=== PATIENT | female | born 1960 ===

== ENCOUNTER 2017-07-25 09:08 | Inpatient (IN) | payer OTHER ==
[2017-07-25 09:08] VITALS: BMI 41.7
[2017-07-25] MEDS ORDERED: Sodium Chloride 0.9% 1,000 ML IV ONE ×2 (09:25→10:37)
[2017-07-25] MEDS ORDERED: Sodium Chloride 0.9% 1,000 ML ONE ×2 (09:32→10:41)
[2017-07-25 09:46] LABS: BASO # 0.1 K/uL (0.0-0.2); BASO % 0.6 % (0.0-2.0); EOS % 0.1 % (0.0-4.0); HEMATOCRIT 47.3 % (34.0-47.0); LYMPH # 2.7 K/uL (1.0-4.3); LYMPH % 13.7 % (20.0-40.0); MEAN CORPUSCULAR HEMOGLOBIN 29.7 pg (27.0-31.0); MEAN CORPUSCULAR HGB CONC 34.1 g/dL (33.0-37.0); MEAN PLATELET VOLUME 9.4 fL (7.2-11.7); MONO # 1.3 K/uL (0.0-0.8); MONO % 6.5 % (0.0-10.0)
[2017-07-25 09:50] LABS: MEAN CELL VOLUME 87.2 fL (81.0-99.0); WHITE BLOOD COUNT 19.7 K/uL (4.8-10.8)
[2017-07-25 09:54] LABS: CHLORIDE 92 mmol/L (98-107)
[2017-07-25 09:55] LABS: SODIUM 134 mmol/L (132-148)
[2017-07-25 09:57] LABS: ALB/GLOB RATIO 1.2 (1.0-2.1); ALKALINE PHOSPHATASE 120 U/L (38-126); ALT/SGPT 81 U/L (9-52); AST/SGOT 69 U/L (14-36); BLOOD UREA NITROGEN 38 mg/dL (7-17); CALCIUM 9.4 mg/dl (8.6-10.4); CARBON DIOXIDE 23 mmol/L (22-30); GFR AFRICAN-AMERICAN > 60; GLUCOSE,RANDOM 340 mg/dL (65-105); TOTAL PROTEIN 7.6 g/dL (6.3-8.3)
--- NOTE | 2017-07-25 10:16 | C.PDOC ---
History Of Present Illness 56 yo female with PMD of GERD, DM, and HTN c/o abdominal pain associated with n/ v x 5 days. (+) subjective fever. Unable to take her medication secondary to not tolerating it. No diarrhea. No chest pain. (-) hematemisis (+) h/o similar symptoms two years ago which improved with admission and liquid diet. (-) chest pain. (-) SOB. Last BM 5 days ago. Time Seen by Provider: 07/25/17 09:16 Chief Complaint (Nursing): Abdominal Pain History Per: Patient History/Exam Limitations: no limitations Onset/Duration Of Symptoms: Days (5) Past Medical History Reviewed: Historical Data, Nursing Documentation, Vital Signs Vital Signs: Last Vital Signs Temp 98.1 F 07/25/17 18:00 Pulse 104 H 07/25/17 18:00 Resp 20 07/25/17 18:00 BP 142/82 07/25/17 18:00 Pulse Ox 100 07/25/17 18:28 - Medical History PMH: Diabetes, GERD, HTN Family History: States: Other Other Family History: prostate, breast, and pancreatic cancer - Social History Hx Tobacco Use: No Hx Alcohol Use: Yes Hx Substance Use: Yes - Immunization History Hx Tetanus Toxoid Vaccination: No Hx Influenza Vaccination: No Hx Pneumococcal Vaccination: No Review Of Systems Except As Marked, All Systems Reviewed And Found Negative. Constitutional: Negative for: Fever Cardiovascular: Negative for: Chest Pain Gastrointestinal: Positive for: Nausea, Vomiting, Abdominal Pain. Negative for : Diarrhea Physical Exam - Physical Exam Appears: Non-toxic, In Acute Distress, Other ((+) anxious ) Skin: Warm, Dry Head: Atraumatic, Normacephalic Eye(s): bilateral: Normal Inspection, EOMI Nose: Normal Oral Mucosa: Moist Neck: Normal ROM, Supple Chest: Symmetrical Cardiovascular: Rhythm Regular Respiratory: Normal Breath Sounds, No Accessory Muscle Use Gastrointestinal/Abdominal: Soft, Tenderness (epigastric tenderness), Other ( obese) Back: No CVA Tenderness, No Vertebral Tenderness Extremity: Normal ROM Extremity: Bilateral: Atraumatic Neurological/Psych: Oriented x3, Normal Speech ED Course And Treatment - Laboratory Results Result Diagrams: 07/25/17 13:47 07/25/17 13:47 ECG: Interpreted By Me, Viewed By Me ECG Rhythm: Sinus Rhythm Rate From EC (bpm) O2 Sat by Pulse Oximetry: 100 (RA) Pulse Ox Interpretation: Normal - CT Scan/US Abdomen US Other Rad Studies (CT/US): Read By Radiologist, Radiology Report Reviewed CT/US Interpretation: HISTORY: Pain RUQ. COMPARISON: None. TECHNIQUE: Sonographic evaluation of the right upper quadrant of the abdomen. FINDINGS: LIVER: Measures 16.5 cm in length. Diffusely increased echogenicity of the liver parenchyma. Consistent with fatty infiltration. Smooth contour. No mass. No biliary ductal dilatation. GALLBLADDER: Unremarkable. No gallstones. COMMON BILE DUCT: Measures 7 mm. No stones. No dilatation. PANCREAS: No mass. Mild dilatation of pancreatic duct diffusely, uncertain significance. The duct measures up to 4 mm in diameter in the pancreatic body. This is not clearly evident on CT examination of the same date. Uncertain significance. Recommend evaluation with dedicated contrast enhanced CT utilizing pancreatic protocol. No peripancreatic fluid appreciated. RIGHT KIDNEY: Measures 11.5 cm in length. Normal echogenicity. No calculus, mass, or hydronephrosis. Please note that the small nonspecific hypodensities seen on CT examination of the same date is not appreciated on this examination. AORTA: No aneurysmal dilatation. IVC: Unremarkable. OTHER FINDINGS: None . IMPRESSION: Mild dilatation of the pancreatic duct of uncertain significance. Recommend evaluation with dedicated pancreatic protocol contrast CT examination. Fatty infiltration of the liver. Abd & pelvis CT Other Rad Studies (CT/US): Read By Radiologist, Radiology Report Reviewed CT/US Interpretation: ADDENDUM: Upon further review, please add note the presence of 9 mm hyperdense or possibly enhancing focus within the pancreatic tail (series 3, image 65). Pancreatic mass or possibly aneurysm arising from the splenic artery are considerations. Recommend dedicated pancreatic protocol for further evaluation. Findings discussed with MOLLY Hill on 07/25/17 at 3:21 p.m. [ Addendum Report Added by Susie Crowe MD at 07/25/2017 15:24: 24 ]. PROCEDURE: CT Abdomen and Pelvis with contrast. HISTORY: pain. COMPARISON: CT abdomen and pelvis with IV contrast performed 10/09/14. TECHNIQUE: Contrast dose: 100 mL Visipaque. Radiation dose: Total exam DLP = 1258.52 mGy-cm. This CT exam was performed using one or more of the following dose reduction techniques: Automated exposure control, adjustment of the mA and/ or kV according to patient size, and/or use of iterative reconstruction technique. FINDINGS: LOWER THORAX: Mild bibasilar atelectasis. No visible pleural effusion or pneumothorax. LIVER: Hypoattenuation of the liver compatible with hepatic steatosis. GALLBLADDER AND BILE DUCTS: Unremarkable. PANCREAS: Fatty atrophy of the pancreas. SPLEEN: Unremarkable. ADRENALS: Unremarkable. KIDNEYS AND URETERS: No obstructing calculus or hydronephrosis. Too small to characterize bilateral renal hypodensities ; statistically likely cysts. VASCULATURE: No aortic aneurysm. BOWEL: Stomach is nondistended. Lack of oral contrast limits evaluation for bowel pathology. Bowel loops appear within normal limits of caliber without evidence of obstruction. APPENDIX: The appendix appears within normal limits of caliber. No secondary signs of acute appendicitis. PERITONEUM: No significant free fluid. No definite free air. LYMPH NODES: No bulky adenopathy identified. BLADDER: Unremarkable. REPRODUCTIVE: Uterus is present. BONES: Vacuum disc phenomenon at L4-L5 with intervertebral disc space narrowing. OTHER FINDINGS: 11 mm fat containing umbilical hernia. IMPRESSION: Mild bibasilar atelectasis. Hepatic steatosis. Fatty atrophy of the pancreas. Too small to characterize bilateral renal hypodensities; statistically likely cysts. 11 mm fat containing umbilical hernia. Additional findings as above. Progress Note: On re-evaluation, pt notes nausea persists. Reglan ordered. On reassessment, patient notes pain persists. Now radiates to her right chest. Nausea improved. Case discussed with Dr Suero, agreed upon plan and treatment. Case discussed with Dr Russ, agreed upon plan and admission. Medical Decision Making Medical Decision Making: PLAN: * CT - Abd & Pelvis * EKG * Alcohol Serum * Drug Screen * Troponin * CBC * CMP * Urinalysis * Morphine IVP * Protonix IVP * Zofran IVP * Sodium Chloride IV Disposition - Disposition Disposition: HOSPITALIZED Disposition Time: 18:00 Condition: STABLE - Clinical Impression Clinical Impression: Abdominal pain, Leukocytosis - PA / BRAILLE TRANSCRIBER / Resident Statement MD/DO has reviewed & agrees with the documentation as recorded. - Scribe Statement The provider has reviewed the documentation as recorded by the Scribe Sneha Anderson All medical record entries made by the Shadiaibe were at my direction and personally dictated by me. I have reviewed the chart and agree that the record accurately reflects my personal performance of the history, physical exam, medical decision making, and the department course for this patient. I have also personally directed, reviewed, and agree with the discharge instructions and disposition.
[2017-07-25 10:24] LABS: ALCOHOL SERUM < 10 mg/dl (0-10)
[2017-07-25 10:49] LABS: RBC URINE 4 /hpf (0-3); URINE BACTERIA RARE (<OCC); URINE BILIRUBIN NEGATIVE (NEGATIVE); URINE BLOOD 1+ (NEGATIVE); URINE COLOR Yellow (YELLOW); URINE GLUCOSE (UA) 3+ mg/dL (Normal); URINE KETONE 2+ mg/dL (NEGATIVE); URINE LEUKOCYTE ESTERASE NEG Leu/uL (Negative); URINE PROTEIN 2+ mg/dL (NEGATIVE); URINE UROBILINOGEN NORMAL mg/dL (0.2-1.0); WBC URINE 6 /hpf (0-5)
[2017-07-25] MEDS ORDERED: Iodixanol 320 MG/ML 100 ML BOTTLE IV ONE (11:50)
--- NOTE | 2017-07-25 13:05 | CT ---
PROCEDURE: CT Abdomen and Pelvis with contrast HISTORY: pain COMPARISON: CT abdomen and pelvis with IV contrast performed 10/09/14 TECHNIQUE: Contrast dose: 100 mL Visipaque Radiation dose: Total exam DLP = 1258.52 mGy-cm. This CT exam was performed using one or more of the following dose reduction techniques: Automated exposure control, adjustment of the mA and/or kV according to patient size, and/or use of iterative reconstruction technique. FINDINGS: LOWER THORAX: Mild bibasilar atelectasis. No visible pleural effusion or pneumothorax. LIVER: Hypoattenuation of the liver compatible with hepatic steatosis. GALLBLADDER AND BILE DUCTS: Unremarkable. PANCREAS: Fatty atrophy of the pancreas. SPLEEN: Unremarkable. ADRENALS: Unremarkable. KIDNEYS AND URETERS: No obstructing calculus or hydronephrosis. Too small to characterize bilateral renal hypodensities ; statistically likely cysts. VASCULATURE: No aortic aneurysm. BOWEL: Stomach is nondistended. Lack of oral contrast limits evaluation for bowel pathology. Bowel loops appear within normal limits of caliber without evidence of obstruction. APPENDIX: The appendix appears within normal limits of caliber. No secondary signs of acute appendicitis. PERITONEUM: No significant free fluid. No definite free air. LYMPH NODES: No bulky adenopathy identified. BLADDER: Unremarkable. REPRODUCTIVE: Uterus is present. BONES: Vacuum disc phenomenon at L4-L5 with intervertebral disc space narrowing. OTHER FINDINGS: 11 mm fat containing umbilical hernia. IMPRESSION: Mild bibasilar atelectasis. Hepatic steatosis. Fatty atrophy of the pancreas. Too small to characterize bilateral renal hypodensities; statistically likely cysts. 11 mm fat containing umbilical hernia. Additional findings as above.
[2017-07-25] MEDS ORDERED: (Novolin R) Insulin Human Regular 100 units/ml vial IV ONE (13:35)
[2017-07-25 13:52] LABS: BASO # 0.1 K/uL (0.0-0.2); MEAN PLATELET VOLUME 9.5 fL (7.2-11.7); NRBC % 0.1 % (0.0-2.0)
[2017-07-25] MEDS ORDERED: (Novolin R) Insulin Human Regular 100 units/ml vial ONE (13:52)
[2017-07-25 14:01] LABS: BASO % 0.7 % (0.0-2.0); EOS % 0.1 % (0.0-4.0); HEMATOCRIT 41.2 % (34.0-47.0); LYMPH # 1.7 K/uL (1.0-4.3); LYMPH % 11.6 % (20.0-40.0); MEAN CELL VOLUME 86.4 fL (81.0-99.0); MEAN CORPUSCULAR HEMOGLOBIN 28.9 pg (27.0-31.0); MEAN CORPUSCULAR HGB CONC 33.5 g/dL (33.0-37.0); MONO # 0.8 K/uL (0.0-0.8); MONO % 5.3 % (0.0-10.0); RED CELL DISTRIBUTION WIDTH 12.9 % (11.5-14.5); WHITE BLOOD COUNT 14.6 K/uL (4.8-10.8)
[2017-07-25 14:03] LABS: ALKALINE PHOSPHATASE 89 U/L (38-126); ALT/SGPT 81 U/L (9-52); AST/SGOT 53 U/L (14-36); BILIRUBIN,TOTAL 0.6 mg/dL (0.2-1.3); BLOOD UREA NITROGEN 24 mg/dL (7-17); CALCIUM 8.2 mg/dl (8.6-10.4); CARBON DIOXIDE 25 mmol/L (22-30); CHLORIDE 98 mmol/L (98-107); GFR AFRICAN-AMERICAN > 60; GLUCOSE,RANDOM 260 mg/dL (65-105); POTASSIUM 3.5 mmol/L (3.6-5.2); SODIUM 137 mmol/L (132-148); TOTAL PROTEIN 6.1 g/dL (6.3-8.3)
--- NOTE | 2017-07-25 15:23 | US ---
HISTORY: Pain RUQ COMPARISON: None. TECHNIQUE: Sonographic evaluation of the right upper quadrant of the abdomen. FINDINGS: LIVER: Measures 16.5 cm in length. Diffusely increased echogenicity of the liver parenchyma. Consistent with fatty infiltration. Smooth contour. No mass. No biliary ductal dilatation. GALLBLADDER: Unremarkable. No gallstones. COMMON BILE DUCT: Measures 7 mm. No stones. No dilatation. PANCREAS: No mass. Mild dilatation of pancreatic duct diffusely, uncertain significance. The duct measures up to 4 mm in diameter in the pancreatic body. This is not clearly evident on CT examination of the same date. Uncertain significance. Recommend evaluation with dedicated contrast enhanced CT utilizing pancreatic protocol. No peripancreatic fluid appreciated. RIGHT KIDNEY: Measures 11.5 cm in length. Normal echogenicity. No calculus, mass, or hydronephrosis. Please note that the small nonspecific hypodensities seen on CT examination of the same date is not appreciated on this examination. AORTA: No aneurysmal dilatation. IVC: Unremarkable. OTHER FINDINGS: None . IMPRESSION: Mild dilatation of the pancreatic duct of uncertain significance. Recommend evaluation with dedicated pancreatic protocol contrast CT examination. Fatty infiltration of the liver.
--- NOTE | 2017-07-25 17:14 | CP.PCM.HP ---
<José Miguel Casarez - Last Filed: 07/25/17 19:08> History of Present Illness - History of Present Illness History of Present Illness: PGY-[address] Subhash Russ HPI CC:"i thought I had a stomach virus for the past 4 days" Patient is a 56 year old female with a PMH of alcoholism, drug addiction, DM, GERD, and HTN presenting with 4 days of vomiting. Patient state the issue started four days ago. She thought it was a virus at first but today she "had enough" and came to the ED. Patient said she has not moved from bed because the pain is so severe, and she can not tolerate a diet and has not eaten much since Friday. Patient denies any changes to lifestyle or diet when the issues began. She states that the vomit is white and foam, denies blood. The pain feels lie her belly is rumbling and rated it a 8/10. The pain is localized to her epigastric region with slight pain over her right lower ribs. She experienced a similar event 2 years ago and was brought to the hospital where she was placed on a liquid diet and got better after 3 days. Eating and drinking make it worse. She said she tried taking pepto bismol which helped slightly but she threw up the medication. Patient is also complaining of constipation, last BM was 5 days ago. ROS: * General: (+) fever/diaphoresis/weakness/changes in diet-cant eat. (-) chills/ recent travel/recent sickness/sick contacts * Cardio: (+) CP/Palp * Resp:(+) SOB. (-)cough * GI:(+) Abd pain/N/V/C * :(-)dysuria, freq * MSK:(+)LE sensitivity/swelling * Derm: (-)rash * Neuro:(+) dizzy. (-)LH PMD= [place] Allergies= NDKA PMH * DM * HTN * Pinch nerve in back * Left hip arthritis * GERD PSH * Breast biopsy-no path Family * Mom=DM * Dad=Pancreatic CA, Colon CA * Sister= Breast CA * Brother= Prostate CA Social Hx * Tobacco= Smokes one pack every two days for 30 years * Alcohol= Sober since November. Use to drink 12 24oz cans of beer daily for "years" * Drugs= Sober since November. History of heroine/crack use * Living= Lives with sister and [id number] * Job= unemployed DNR/DNI Contact: Hermelinda Navarro [phone], Sister Present on Admission - Present on Admission Any Indicators Present on Admission: No History of DVT/PE: No History of Uncontrolled Diabetes: No Urinary Catheter: No Decubitus Ulcer Present: No History Surgical Site Infection Following: None Review of Systems - Constitutional Constitutional: As Per HPI - EENT Eyes: As Per HPI Ears: As Per HPI Nose/Mouth/Throat: As Per HPI - Breasts Breasts: As Per HPI - Cardiovascular Cardiovascular: As Per HPI - Respiratory Respiratory: As Per HPI - Gastrointestinal Gastrointestinal: As Per HPI - Genitourinary Genitourinary: As Per HPI - Reproductive: Female Reproductive:Female: As Per HPI - Menstruation Menstruation: As Per HPI - Musculoskeletal Musculoskeletal: As Per HPI - Integumentary Integumentary: As Per HPI - Neurological Neurological: As Per HPI - Psychiatric Psychiatric: As Per HPI - Endocrine Endocrine: As Per HPI - Hematologic/Lymphatic Hematologic: As Per HPI Past Patient History - Infectious Disease Hx of Infectious Diseases: None - Past Medical History & Family History Past Medical History?: Yes - Past Social History Smoking Status: Heavy Smoker > 10 Cigarettes Daily - CARDIAC Hx Hypertension: Yes - PULMONARY Hx Tuberculosis: No - NEUROLOGICAL Hx Seizures: No - ENDOCRINE/METABOLIC Hx Diabetes Mellitus Type 2: Yes - HEMATOLOGICAL/ONCOLOGICAL Hx Human Immunodeficiency Virus (HIV): No - MUSCULOSKELETAL/RHEUMATOLOGICAL Hx Falls: No - GENITOURINARY/GYNECOLOGICAL Hx Sexually Transmitted Disorders: No - PSYCHIATRIC Hx Substance Use: Yes - SURGICAL HISTORY Hx Surgeries: Yes Other/Comment: oral sx - ANESTHESIA Hx Anesthesia: No Hx Anesthesia Reactions: No Meds Allergies/Adverse Reactions: Allergies Allergy/AdvReac Type Severity Reaction Status Date / Time No Known Allergies Allergy Verified 07/25/17 09:19 Physical Exam - Constitutional Appears: Well, Non-toxic, No Acute Distress - Head Exam Head Exam: ATRAUMATIC, NORMAL INSPECTION, NORMOCEPHALIC - Eye Exam Eye Exam: EOMI, Normal appearance, PERRL. absent: Nystagmus, Scleral icterus Pupil Exam: NORMAL ACCOMODATION, PERRL - ENT Exam ENT Exam: Mucous Membranes Moist - Neck Exam Neck exam: Positive for: Normal Inspection - Respiratory Exam Respiratory Exam: Clear to Auscultation Bilateral, NORMAL BREATHING PATTERN. absent: Rales, Rhonchi, Wheezes, Stridor - Cardiovascular Exam Cardiovascular Exam: REGULAR RHYTHM. absent: Bradycardia, Tachycardia, Gallop, Systolic Murmur - GI/Abdominal Exam GI & Abdominal Exam: Normal Bowel Sounds, Soft, Tenderness (epigastrum, RUQ). absent: Distended - Extremities Exam Extremities exam: Positive for: joint swelling, tenderness (to palpation b/l LE) . Negative for: pedal edema - Neurological Exam Neurological exam: Alert, Oriented x3 - Psychiatric Exam Psychiatric exam: Normal Affect, Normal Mood - Skin Skin Exam: Dry, Intact, Normal Color, Warm Results - Vital Signs Recent Vital Signs: Last Vital Signs Temp 98.4 F 07/25/17 11:42 Pulse 98 H 07/25/17 13:26 Resp 17 07/25/17 13:26 BP 138/70 07/25/17 13:26 Pulse Ox 96 07/25/17 13:26 - Labs Result Diagrams: 07/25/17 13:47 07/25/17 13:47 Assessment & Plan - Assessment and Plan (Free Text) Assessment: Intractable Nausea/Vomiting * Zofran 4mg IV Q6H PRN * CLD, Advance as tolerated Pancreatic Tail Mass VS Splenic Aneurysm * CT Abd/Pelvis W/W/O contrast (Pancreatic Protocol) - F/U * GI ([place]) - F/U Reccs Hypokalemia * Mag - F/U * Phos - F/U Elevated LFTs * Monitor Leukocytosis (L. Shift) * No fever * Monitor Constipation * Colace 100mg BID [id number] * Hold Metformin for CT, restart on 07/28/17 * ISS Medium * Accuchecks * A1C - F/U * Urine Microalbumin - F/U * Lipid Panel - F/U HTN * Lisinopril 10mg PO QD GERD * Pepcid 20mg BID PPX * Pepcid as above * Heparin 5000 SC Q12 * PT/OT * Ambulate - Date & Time Date: 07/25/17 Time: 19:40 Decision To Admit - Pt Status Changed To: Hospital Disposition Of: Inpatient - Admit Certification Admit to Inpatient:: After my assessment, the patient will require hospitalization for at least two midnights. This is because of the severity of symptoms shown, intensity of services needed, and/or the medical risk in this patient being treated as an outpatient. - InPatient: Physician Admission Certification:: . - . Bed Request Type: Regular Admitting Physician: Subhash Russ <Subhash Russ - Last Filed: 07/25/17 19:44> Results - Vital Signs Recent Vital Signs: Last Vital Signs Temp 98.1 F 07/25/17 18:00 Pulse 104 H 07/25/17 18:00 Resp 20 07/25/17 18:00 BP 142/82 07/25/17 18:00 Pulse Ox 100 07/25/17 18:57 - Labs Result Diagrams: 07/25/17 13:47 07/25/17 13:47 Attending/Attestation - Attestation I have personally seen and examined this patient.: Yes I have fully participated in the care of the patient.: Yes I have reviewed all pertinent clinical information: Yes Notes (Text): 07/25/17 19:43 Patient was seen and examined shortly after resident. History, Physical, Assessment and Plan were thoroughly gone over with the resident. Subhash Russ D.O.
--- NOTE | 2017-07-25 19:27 | CARD ---
APPROVED REPORT EKG Measurement Heart [id number] <Conclusion> Normal sinus rhythm Prolonged QT Abnormal ECG
[2017-07-25] MEDS: (Novolin R) Insulin Human Regular 100 units/ml vial SC SCH (21:45)
[2017-07-26] MEDS ORDERED: Pantoprazole 40 mg EC Tab PO STA (00:39)
[2017-07-26] MEDS: (Novolin R) Insulin Human Regular 100 units/ml vial SC SCH ×4 (08:22→22:55)
[2017-07-26 08:36] LABS: BASO % 0.5 % (0.0-2.0); EOS # 0.1 K/uL (0.0-0.7); EOS % 1.1 % (0.0-4.0); HEMATOCRIT 39.9 % (34.0-47.0); LYMPH # 2.9 K/uL (1.0-4.3); LYMPH % 34.1 % (20.0-40.0); MEAN CELL VOLUME 88.1 fL (81.0-99.0); MEAN CORPUSCULAR HEMOGLOBIN 29.9 pg (27.0-31.0); MEAN CORPUSCULAR HGB CONC 33.9 g/dL (33.0-37.0); MEAN PLATELET VOLUME 9.6 fL (7.2-11.7); MONO # 0.5 K/uL (0.0-0.8); MONO % 5.8 % (0.0-10.0); RED CELL DISTRIBUTION WIDTH 12.9 % (11.5-14.5); WHITE BLOOD COUNT 8.4 K/uL (4.8-10.8)
[2017-07-26 08:47] LABS: ALKALINE PHOSPHATASE 90 U/L (38-126); ALT/SGPT 81 U/L (9-52); AST/SGOT 46 U/L (14-36); BILIRUBIN,TOTAL 0.5 mg/dL (0.2-1.3); BLOOD UREA NITROGEN 23 mg/dL (7-17); CALCIUM 8.9 mg/dl (8.6-10.4); CARBON DIOXIDE 26 mmol/L (22-30); CHLORIDE 99 mmol/L (98-107); CHOLESTEROL 144 mg/dL (0-199); GFR AFRICAN-AMERICAN > 60; GLUCOSE,RANDOM 182 mg/dL (65-105); POTASSIUM 3.5 mmol/L (3.6-5.2); SODIUM 137 mmol/L (132-148); TOTAL PROTEIN 6.1 g/dL (6.3-8.3)
--- NOTE | 2017-07-26 09:04 | CP.PCM.CON ---
History of Present Illness - History of Present Illness History of Present Illness: ASked to see patient for pancreas lesion. 56 yo female h/o GERD. DM, HTN - present s to with 5 days nausea and vomiting. Reports poor p.o. intake, and no BMs x 5 days. Reports RON after orange juice and epig discmfort. Noted to have lesion in pancreas tail on CT. Reports feeling better today- no vomiting and no abdom pain. SH: + ETOH Review of Systems - Constitutional Constitutional: absent: Fatigue, Fever, Weight Loss - Cardiovascular Cardiovascular: absent: Chest Pain, Dyspnea - Respiratory Respiratory: absent: Hemoptysis, Wheezing - Gastrointestinal Gastrointestinal: Constipation, Nausea, Vomiting. absent: Diarrhea, Hematemesis , Hematochezia, Melena - Genitourinary Genitourinary: absent: Hematuria - Musculoskeletal Musculoskeletal: absent: Muscle Cramps - Integumentary Integumentary: absent: Pruritus, Rash, Jaundice - Neurological Neurological: absent: Convulsions Past Patient History - Infectious Disease Hx of Infectious Diseases: None - Past Medical History & Family History Past Medical History?: Yes - Past Social History Smoking Status: Heavy Smoker > 10 Cigarettes Daily - CARDIAC Hx Hypertension: Yes - PULMONARY Hx Tuberculosis: No - NEUROLOGICAL Hx Seizures: No - ENDOCRINE/METABOLIC Hx Diabetes Mellitus Type 2: Yes - HEMATOLOGICAL/ONCOLOGICAL Hx Human Immunodeficiency Virus (HIV): No - MUSCULOSKELETAL/RHEUMATOLOGICAL Hx Falls: No - GENITOURINARY/GYNECOLOGICAL Hx Sexually Transmitted Disorders: No - PSYCHIATRIC Hx Substance Use: No - SURGICAL HISTORY Hx Surgeries: Yes Other/Comment: oral sx - ANESTHESIA Hx Anesthesia: No Hx Anesthesia Reactions: No Meds Allergies/Adverse Reactions: Allergies Allergy/AdvReac Type Severity Reaction Status Date / Time No Known Allergies Allergy Verified 07/25/17 09:19 - Medications Medications: Current Medications Docusate Sodium (Colace) 100 mg PO BID JP Famotidine (Pepcid) 20 mg PO BID [facility] Heparin Sodium (Porcine) (Heparin) 5,000 units SC Q12 [facility] Last Admin: 07/25/17 21:45 Dose: 5,000 units Ibuprofen (Motrin Tab) 400 mg PO Q6 PRN PRN Reason: Fever >100.4 F Insulin Human Regular (Novolin R) 0 unit SC ACHS [facility] PRN Reason: Protocol Last Admin: 07/26/17 08:22 Dose: 1 unit Lisinopril (Zestril) 10 mg PO DAILY JP Ondansetron HCl (Zofran Inj) 6 mg IVP Q4 PRN PRN Reason: Nausea/Vomiting Pneumococcal Polyvalent Vaccine (Pneumovax 23 Vaccine) 0.5 ml IM .ONCE ONE Stop: 07/27/17 10:01 Physical Exam - Constitutional Appears: Well - Respiratory Exam Respiratory Exam: Clear to Auscultation Bilateral - Cardiovascular Exam Cardiovascular Exam: RRR - GI/Abdominal Exam GI & Abdominal Exam: Normal Bowel Sounds, Soft. absent: Distended, Firm, Guarding, Mass, Rebound, Tenderness - Neurological Exam Neurological exam: Alert, Oriented x3 Results - Vital Signs Recent Vital Signs: Last Vital Signs Temp 98 F 07/26/17 00:00 Pulse 97 H 07/26/17 00:00 Resp 20 07/26/17 00:00 BP 138/76 07/26/17 00:00 Pulse Ox 99 07/26/17 00:00 - Labs Result Diagrams: 07/26/17 08:18 07/26/17 08:18 Labs: Laboratory Results - last 24 hr 07/25/17 07/26/17 07/26/17 21:32 07:32 08:18 WBC 8.4 RBC 4.53 Hgb 13.5 Hct 39.9 MCV 88.1 MCH 29.9 MCHC 33.9 RDW 12.9 Plt Count 211 MPV 9.6 Neut % (Auto) 58.5 Lymph % (Auto) 34.1 Sanders % (Auto) 5.8 Eos % (Auto) 1.1 Baso % (Auto) 0.5 Neut # 4.9 Lymph # 2.9 Sanders # 0.5 Eos # 0.1 Baso # 0.0 Sodium Potassium Chloride Carbon Dioxide Anion Gap BUN Creatinine Est GFR ( Amer) Est GFR (Non-Af Amer) POC Glucose (mg/dL) 307 H 201 H Random Glucose Calcium Total Bilirubin AST ALT Alkaline Phosphatase Total Protein Albumin Globulin Albumin/Globulin Ratio Triglycerides Cholesterol HDL Cholesterol 07/26/17 08:18 WBC RBC Hgb Hct MCV MCH MCHC RDW Plt Count MPV Neut % (Auto) Lymph % (Auto) Sanders % (Auto) Eos % (Auto) Baso % (Auto) Neut # Lymph # Sanders # Eos # Baso # Sodium 137 Potassium 3.5 L Chloride 99 Carbon Dioxide 26 Anion Gap 16 BUN 23 H Creatinine 0.7 Est GFR ( Amer) > 60 Est GFR (Non-Af Amer) > 60 POC Glucose (mg/dL) Random Glucose 182 H Calcium 8.9 Total Bilirubin 0.5 AST 46 H ALT 81 H Alkaline Phosphatase 90 Total Protein 6.1 L Albumin 3.0 L Globulin 3.1 Albumin/Globulin Ratio 1.0 Triglycerides 148 Cholesterol 144 HDL Cholesterol 30 Assessment & Plan (1) Abdominal pain Assessment and Plan: Consider gastritis, DM, hyperglycemia, ketosis. Pain is better today. Consider related to pancreas finding. Rec: BLAND diet. PPI Status: Acute (2) Leukocytosis Assessment and Plan: Normalized Status: Acute (3) Diabetes Assessment and Plan: Ketones in urine Status: Acute (4) HTN (hypertension), benign Status: Acute (5) Vomiting Assessment and Plan: As above. Improving. Status: Acute (6) Hypertension Status: Chronic (7) Mass of pancreas Assessment and Plan: On CT- consider mass or splenic aneurysm. Panc dust- [address] Consider MRI. Status: Acute
--- NOTE | 2017-07-26 11:00 | CP.PCM.PN ---
Subjective - Date & Time of Evaluation Date of Evaluation: 07/26/17 Time of Evaluation: 10:57 - Subjective Subjective: PGY1 Note for Dr. Russ HPI: Patient seen and examined at bedside. Doing well with no complaints at this time. Waiting for CT results. Had some reflux with orange juice this am. Told patient to stick to water. She was able to tolerate broth. Shes hungry. No chest pain or SOB. Denies N/V/D/F. States she is feeling much better. Objective - Vital Signs/Intake and Output Vital Signs (last 24 hours): Temp Pulse Resp BP Pulse Ox 98 F 88 20 134/80 96 07/26/17 09:02 07/26/17 09:02 07/26/17 09:02 07/26/17 09:02 07/26/17 09:02 Intake and Output: 07/26/17 07/26/17 06:59 18:59 Intake Total 480 Balance 480 - Medications Medications: Current Medications Docusate Sodium (Colace) 100 mg PO BID JP Famotidine (Pepcid) 20 mg PO BID [facility] Heparin Sodium (Porcine) (Heparin) 5,000 units SC Q12 [facility] Last Admin: 07/25/17 21:45 Dose: 5,000 units Ibuprofen (Motrin Tab) 400 mg PO Q6 PRN PRN Reason: Fever >100.4 F Insulin Human Regular (Novolin R) 0 unit SC ACHS JP PRN Reason: Protocol Last Admin: 07/26/17 08:22 Dose: 1 unit Lisinopril (Zestril) 10 mg PO DAILY JP Ondansetron HCl (Zofran Inj) 6 mg IVP Q4 PRN PRN Reason: Nausea/Vomiting Pneumococcal Polyvalent Vaccine (Pneumovax 23 Vaccine) 0.5 ml IM .ONCE ONE Stop: 07/27/17 10:01 - Labs Labs: 07/26/17 08:18 07/26/17 08:18 - Constitutional Appears: Well, Non-toxic, No Acute Distress - Head Exam Head Exam: ATRAUMATIC, NORMAL INSPECTION, NORMOCEPHALIC - Eye Exam Eye Exam: EOMI Pupil Exam: NORMAL ACCOMODATION - ENT Exam ENT Exam: Mucous Membranes Moist - Respiratory Exam Respiratory Exam: Clear to Ausculation Bilateral, NORMAL BREATHING PATTERN - Cardiovascular Exam Cardiovascular Exam: REGULAR RHYTHM - GI/Abdominal Exam GI & Abdominal Exam: Soft, Normal Bowel Sounds. 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 Shift) * No fever * Monitor Constipation * Colace 100mg BID IDDM2 * Hold Metformin for CT, restart on 07/28/17 * ISS Medium * Accuchecks * A1C - F/U * Urine Microalbumin - F/U * Lipid Panel * TG 148 * Cholesterol = 144 * LDL = 88 * HDL = 30 HTN * Lisinopril 10mg PO QD GERD * Pepcid 20mg BID PPX * Pepcid as above * Heparin 5000 SC Q12 * PT/OT * Ambulate
[2017-07-27 07:54] LABS: BASO # 0.1 K/uL (0.0-0.2); BASO % 0.6 % (0.0-2.0); EOS # 0.1 K/uL (0.0-0.7); EOS % 1.5 % (0.0-4.0); HEMATOCRIT 38.6 % (34.0-47.0); LYMPH % 24.8 % (20.0-40.0); MEAN CELL VOLUME 88.4 fL (81.0-99.0); MEAN CORPUSCULAR HEMOGLOBIN 29.9 pg (27.0-31.0); MEAN CORPUSCULAR HGB CONC 33.8 g/dL (33.0-37.0); MEAN PLATELET VOLUME 9.8 fL (7.2-11.7); MONO # 0.5 K/uL (0.0-0.8); MONO % 6.3 % (0.0-10.0); WHITE BLOOD COUNT 8.2 K/uL (4.8-10.8)
[2017-07-27 08:15] LABS: ALKALINE PHOSPHATASE 92 U/L (38-126); ALT/SGPT 107 U/L (9-52); AST/SGOT 50 U/L (14-36); BILIRUBIN,TOTAL 0.4 mg/dL (0.2-1.3); BLOOD UREA NITROGEN 17 mg/dL (7-17); CALCIUM 8.9 mg/dl (8.6-10.4); CARBON DIOXIDE 28 mmol/L (22-30); CHLORIDE 97 mmol/L (98-107); GFR AFRICAN-AMERICAN > 60; GLUCOSE,RANDOM 246 mg/dL (65-105); MAGNESIUM 1.9 mg/dL (1.6-2.3); PHOSPHOROUS 2.7 mg/dL (2.5-4.5); POTASSIUM 3.5 mmol/L (3.6-5.2); SODIUM 137 mmol/L (132-148)
[2017-07-27 08:18] LABS: ALB/GLOB RATIO 1.1 (1.0-2.1)
[2017-07-27] MEDS: (Novolin R) Insulin Human Regular 100 units/ml vial SC SCH ×4 (08:21→22:10)
--- NOTE | 2017-07-27 08:23 | CP.PCM.PN ---
<José Miguel Casarez - Last Filed: 07/27/17 15:32> Subjective - Date & Time of Evaluation Date of Evaluation: 07/27/17 Time of Evaluation: 08:17 - Subjective Subjective: PGY1 Note for Dr. Russ HPI: Patient seen and examined at bedside. Doing well with no complaints at this time. No belly pain, No heartburn. Denies CP, SOB, N/V/D. Objective - Vital Signs/Intake and Output Vital Signs (last 24 hours): Temp Pulse Resp BP Pulse Ox 98.5 F 75 20 118/72 95 07/27/17 07:57 07/27/17 07:57 07/27/17 07:57 07/27/17 07:57 07/27/17 07:57 Intake and Output: 07/27/17 07/27/17 06:59 18:59 Intake Total 0 Balance 0 - Medications Medications: Current Medications Docusate Sodium (Colace) 100 mg PO BID [facility] Last Admin: 07/26/17 17:45 Dose: 100 mg Famotidine (Pepcid) 20 mg PO BID [facility] Last Admin: 07/26/17 17:46 Dose: 20 mg Heparin Sodium (Porcine) (Heparin) 5,000 units SC Q12 [facility] Last Admin: 07/26/17 21:59 Dose: 5,000 units Ibuprofen (Motrin Tab) 400 mg PO Q6 PRN PRN Reason: Fever >100.4 F Insulin Human Regular (Novolin R) 0 unit SC ACHS [facility] PRN Reason: Protocol Last Admin: 07/26/17 22:55 Dose: Not Given Lisinopril (Zestril) 10 mg PO DAILY [facility] Last Admin: 07/26/17 11:00 Dose: 10 mg Ondansetron HCl (Zofran Inj) 6 mg IVP Q4 PRN PRN Reason: Nausea/Vomiting Pneumococcal Polyvalent Vaccine (Pneumovax 23 Vaccine) 0.5 ml IM .ONCE ONE Stop: 07/27/17 10:01 Sucralfate (Carafate Tab) 1 gm PO Q12 [facility] Last Admin: 07/26/17 22:03 Dose: 1 gm - Labs Labs: 07/27/17 07:41 07/26/17 08:18 - Constitutional Appears: Well, Non-toxic, No Acute Distress - Head Exam Head Exam: ATRAUMATIC, NORMAL INSPECTION, NORMOCEPHALIC - Eye Exam Eye Exam: EOMI - ENT Exam ENT Exam: Mucous Membranes Moist - Respiratory Exam Respiratory Exam: Clear to Ausculation Bilateral, NORMAL BREATHING PATTERN - Cardiovascular Exam Cardiovascular Exam: REGULAR RHYTHM - GI/Abdominal Exam GI & Abdominal Exam: Soft, Normal Bowel Sounds. 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 Fem TLC placed for Contrast administration. Hypokalemia * Mag - 1.9 * Phos - 2.7 Elevated LFTs * Monitor Leukocytosis (L. Shift) * No fever * Monitor Constipation * Colace 100mg BID IDDM2 * Hold Metformin for CT, restart on 07/28/17 * ISS Medium * Accuchecks * A1C - F/U * Urine Microalbumin - F/U * Lipid Panel * TG 148 * Cholesterol = 144 * LDL = 88 * HDL = 30 HTN * Lisinopril 10mg PO QD GERD * Pepcid 20mg BID PPX * Pepcid as above * Heparin 5000 SC Q12 * PT/OT * Ambulate <Subhash Russ - Last Filed: 07/27/17 17:28> Objective - Vital Signs/Intake and Output Vital Signs (last 24 hours): Temp Pulse Resp BP Pulse Ox 98.5 F 109 H 20 150/90 98 07/27/17 16:00 07/27/17 16:00 07/27/17 16:00 07/27/17 16:00 07/27/17 16:00 Intake and Output: 07/27/17 07/27/17 06:59 18:59 Intake Total 0 Balance 0 - Medications Medications: Current Medications Docusate Sodium (Colace) 100 mg PO BID [facility] Last Admin: 07/27/17 09:58 Dose: Not Given Famotidine (Pepcid) 20 mg PO BID [facility] Last Admin: 07/27/17 10:04 Dose: Not Given Heparin Sodium (Porcine) (Heparin) 5,000 units SC Q12 [facility] Last Admin: 07/27/17 10:45 Dose: Not Given Ibuprofen (Motrin Tab) 400 mg PO Q6 PRN PRN Reason: Fever >100.4 F Insulin Human Regular (Novolin R) 0 unit SC ACHS JP PRN Reason: Protocol Last Admin: 07/27/17 11:03 Dose: Not Given Lisinopril (Zestril) 10 mg PO DAILY [facility] Last Admin: 07/27/17 10:05 Dose: Not Given Ondansetron HCl (Zofran Inj) 6 mg IVP Q4 PRN PRN Reason: Nausea/Vomiting Sucralfate (Carafate Tab) 1 gm PO Q12 [facility] Last Admin: 07/27/17 09:58 Dose: Not Given - Labs Labs: 07/27/17 07:41 07/27/17 07:41 Attending/Attestation - Attestation I have personally seen and examined this patient.: Yes I have fully participated in the care of the patient.: Yes I have reviewed all pertinent clinical information, including history, physical exam and plan: Yes Notes (Text): 07/27/17 17:20 Patient was seen and examined shortly after Resident. Exam, Assessment and Plan were thoroughly gone over with the Resident. Please note that the CT Abdomen/Pelvis with Pancreatic Protocol could not be performed on 07/26/17 as patient had already received contrast within 24 hours of her admission on 07/25/17. Attempt was made early this morning to perform the CT Abdomen/Pelvis Pancreatic Protocol, however it could not be performed as elderly caregiver could not administer the IV contrast throught he peripheral access that was present. Therefore I spoke with Checker Cashier Dr. Travis Lauren who spoke with his attending Dr. Wolf and Femoral Access was placed. I spoke with elderly caregiver who stated that she will perform the CT this evening . If the results are negative (NO Pancreatic Mass, NO Pancreatic Vessel Anuerysm) then this patient should be discharged. If for whatever reason this patient is not discharge on 07/28/17, then the femoral access will have to be replaced with PICC line, if needed, as per surgery team. Please also note that as there was a delay in performance of CT, the Metformin will need to be restarted on 07/29/17 and NOT on 07/28/17. Subhash Russ D.O. 07/27/17 17:26
[2017-07-27] MEDS ORDERED: Iodixanol 320 MG/ML 100 ML BOTTLE IV ONE (09:42)
[2017-07-27] MEDS ORDERED: Pneumococcal 23-Valent Vaccine IM ONE (10:00)
--- NOTE | 2017-07-27 14:12 | PCM.PROC ---
Procedures Attestation:: I certify that I have explained the specified Operation(s) or Procedure(s), risks, benefits and reasonable alternatives to the Patient and/or other person responsible. The opportunity was given to ask questions and all questions answered - Central Line Placement Right Femoral Triple Lumen Catheter Aseptic technique was employed throughout the procedure: Hand Hygiene done prior to procedure, Full sterile barriers (mask, hair cover, sterile gown, sterile gloves), Full body sterile drape, Chloraprep Antiseptic: 2 minute prep for Femoral CVP Time Out Performed: Yes Pt. Placed on Pulse Ox Monitor: No (Right Femoral access, no indication for Pulse ox monitoring) Central Line Prep: Chlorhexidine-Alcohol Combination Local Anesthesia Used: Lidocaine 1% Amount of Anesthesia Used (mls): 3 Ultrasound Used for Placement: Yes Central Line Lumen Inserted: triple Central Line Length: 20 cm Post Procedure: Sutured in Place, Good Blood Return, All Ports Aspirated, Flushed, Capped, Sterile Dressing Applied Secured by: Suture Post procedure dressing: Clear vapor permeable, Chlorhexidine disc (Biopatch) Post Procedure X-Ray: No Patient Tolerated Procedure: Well, No Complications Immediate Complications: None Additional Comments: Written consent obtained and on chart. ML Blackmon available at bedside as flat hammerer and digital marketing assistant for the duration of the procedure. Patient tolerated procedure well. No complications
[2017-07-27] MEDS ORDERED: Aluminum Hydroxide/Magnesium Hydroxide Susp (30 mL) PO ONE (16:00)
[2017-07-27] MEDS ORDERED: Iodixanol 320 MG/ML 200 ML BOTTLE IV ONE (16:28)
--- NOTE | 2017-07-27 17:34 | CP.PCM.PN ---
Subjective - Date & Time of Evaluation Date of Evaluation: 07/27/17 Time of Evaluation: 17:20 - Subjective Subjective: F/U pancreas mass Still nausea- less. + constipation. Poor appetite. Denies fever, chills, SZ, LOC, CP, SOB, ROSSI , cough,m hematuria Objective - Vital Signs/Intake and Output Vital Signs (last 24 hours): Temp Pulse Resp BP Pulse Ox 98.5 F 109 H 20 150/90 98 07/27/17 16:00 07/27/17 16:00 07/27/17 16:00 07/27/17 16:00 07/27/17 16:00 Intake and Output: 07/27/17 07/27/17 06:59 18:59 Intake Total 0 Balance 0 - Medications Medications: Current Medications Docusate Sodium (Colace) 100 mg PO BID [facility] Last Admin: 07/27/17 09:58 Dose: Not Given Famotidine (Pepcid) 20 mg PO BID [facility] Last Admin: 07/27/17 10:04 Dose: Not Given Heparin Sodium (Porcine) (Heparin) 5,000 units SC Q12 [facility] Last Admin: 07/27/17 10:45 Dose: Not Given Ibuprofen (Motrin Tab) 400 mg PO Q6 PRN PRN Reason: Fever >100.4 F Insulin Human Regular (Novolin R) 0 unit SC ACHS [facility] PRN Reason: Protocol Last Admin: 07/27/17 11:03 Dose: Not Given Lisinopril (Zestril) 10 mg PO DAILY [facility] Last Admin: 07/27/17 10:05 Dose: Not Given Ondansetron HCl (Zofran Inj) 6 mg IVP Q4 PRN PRN Reason: Nausea/Vomiting Sucralfate (Carafate Tab) 1 gm PO Q12 [facility] Last Admin: 07/27/17 09:58 Dose: Not Given - Labs Labs: 07/27/17 07:41 07/27/17 07:41 - Eye Exam Eye Exam: EOMI - Neck Exam Neck Exam: absent: Tenderness - Respiratory Exam Respiratory Exam: Clear to Ausculation Bilateral - Cardiovascular Exam Cardiovascular Exam: RRR - GI/Abdominal Exam GI & Abdominal Exam: Soft, Normal Bowel Sounds. absent: Guarding, Tenderness - Neurological Exam Neurological Exam: Alert, Oriented x3 Assessment and Plan (1) Abdominal pain Assessment & Plan: Less Status: Acute (2) Leukocytosis Status: Acute (3) Diabetes Status: Acute (4) HTN (hypertension), benign Status: Acute (5) Vomiting Assessment & Plan: Less Status: Acute (6) Hypertension Status: Chronic (7) Mass of pancreas Assessment & Plan: Pancreas CT done. Check results- not read yet. Check CA19 Status: Acute
--- NOTE | 2017-07-27 17:50 | CT ---
PROCEDURE: CT Abdomen and Pelvis with contrast HISTORY: Pancreatic tail mass Vs Splenic Aneurysm COMPARISON: None. TECHNIQUE: Contrast dose: 100 cc Visipaque 320 Radiation dose: Total exam DLP = 1992.11 mGy-cm. This CT exam was performed using one or more of the following dose reduction techniques: Automated exposure control, adjustment of the mA and/or kV according to patient size, and/or use of iterative reconstruction technique. 2.5 mm contiguous axial sections were acquired through the abdomen prior to intravenous contrast administration, at 30 seconds and then at 70 seconds postcontrast administration. Please note that there was reportedly infiltration of intravenous contrast material into the soft tissues of the antecubital fossa. Subsequently, re- administration of contrast material was performed. However, there was some intravascular contrast administered during the 1st portion of the examination as well. FINDINGS: LOWER THORAX: No infiltrate/ effusion. Minimal subsegmental atelectasis both lower lobes. LIVER: Diffuse diminished attenuation consistent with fatty infiltration. No mass. No biliary dilatation. GALLBLADDER AND BILE DUCTS: Unremarkable. PANCREAS: The previously identified rounded enhancing structure in the region of the pancreatic is again identified. It measures 11 mm in diameter. . This is not immediately adjacent to the splenic artery. It is adjacent to the splenic vein. It enhances during the arterial phase and is still hyperdense to the pancreas in the portal venous phase though decreased somewhat in attenuation in relative to the adjacent splenic vein. This is suspicious for an enhancing pancreatic neoplasm. However, the absence of a true arterial phase limits the value of this study for this determination. . No other pancreatic mass is identified. There is no pancreatic ductal dilatation. SPLEEN: Unremarkable. ADRENALS: Unremarkable KIDNEYS AND URETERS: Probable 8 mm cortical cyst lower pole right kidney. Probable 8 mm cortical cyst upper pole left kidney. No renal calculus or hydronephrosis. VASCULATURE: Unremarkable. No aortic aneurysm. BOWEL: Unremarkable. No obstruction. No gross mural thickening. APPENDIX: Normal appendix. PERITONEUM: Unremarkable. No free fluid. No free air. LYMPH NODES: Unremarkable. No enlarged lymph nodes. BONES: No acute fracture. OTHER FINDINGS: None. IMPRESSION: 11 mm rounded enhancing mass in the tail of the pancreas. This is immediately adjacent to the splenic vein and not to the splenic artery. In that the late arterial phase of pancreatic parenchymal enhancement was not imaged adequately during this examination, this examination is limited for evaluation of this pancreatic tail mass. A repeat examination utilizing pancreatic protocol is advised. Fatty infiltration of the liver. No other significant abnormality is identified.
--- NOTE | 2017-07-27 19:26 | CP.PCM.CON ---
<Travis Lauren - Last Filed: 07/27/17 19:11> History of Present Illness - History of Present Illness History of Present Illness: Surgery Consult Note. Dr. Resi 56yo F with PMHx of DM, HTN, Arthritis, GERD here for evaluation of vomiting. General surgery consulted for central venous access for IV contrast admin during pancreas CT. Patient states that she came in for evaluation of Abdominal pain and vomiting. She had a left AC IV access which infiltrated during Pancreas CT. She required a more direct venous access for repeat study. Patient currently denies any nausea or vomiting. Does report some mild "heart burn". Denies any CP/SOB. No Headaches. No F/C. No urinary changes. No weight changes. PMD: Dr. Daniel PMHx: DM, HTN, Arthritis, GERD PSHx: Breast biopsy Family Hx: Father with pancreatic CA; Sister with Breast CA; Brother with prostate CA Social Hx: Current 1/2 pack per day smoker. Previous ETOH abuse, quit November. Does report hx of Cocaine/heroin abuse, quit November. NKDA Review of Systems - Constitutional Constitutional: absent: Chills, Fever - Cardiovascular Cardiovascular: absent: Chest Pain, Dyspnea, Leg Edema - Respiratory Respiratory: absent: Cough, Dyspnea - Gastrointestinal Gastrointestinal: Dyspepsia. absent: Abdominal Pain, Diarrhea, Nausea, Vomiting - Genitourinary Genitourinary: absent: Dysuria Past Patient History - Infectious Disease Hx of Infectious Diseases: None - Past Medical History & Family History Past Medical History?: Yes - Past Social History Smoking Status: Heavy Smoker > 10 Cigarettes Daily - CARDIAC Hx Hypertension: Yes - PULMONARY Hx Tuberculosis: No - NEUROLOGICAL Hx Seizures: No - ENDOCRINE/METABOLIC Hx Diabetes Mellitus Type 2: Yes - HEMATOLOGICAL/ONCOLOGICAL Hx Human Immunodeficiency Virus (HIV): No - MUSCULOSKELETAL/RHEUMATOLOGICAL Hx Falls: No - GENITOURINARY/GYNECOLOGICAL Hx Sexually Transmitted Disorders: No - PSYCHIATRIC Hx Substance Use: No - SURGICAL HISTORY Hx Surgeries: Yes Other/Comment: oral sx - ANESTHESIA Hx Anesthesia: No Hx Anesthesia Reactions: No Meds Allergies/Adverse Reactions: Allergies Allergy/AdvReac Type Severity Reaction Status Date / Time No Known Allergies Allergy Verified 07/25/17 09:19 - Medications Medications: Current Medications Docusate Sodium (Colace) 100 mg PO BID [facility] Last Admin: 07/27/17 17:32 Dose: Not Given Famotidine (Pepcid) 20 mg PO BID [facility] Last Admin: 07/27/17 17:32 Dose: 20 mg Heparin Sodium (Porcine) (Heparin) 5,000 units SC Q12 [facility] Last Admin: 07/27/17 10:45 Dose: Not Given Ibuprofen (Motrin Tab) 400 mg PO Q6 PRN PRN Reason: Fever >100.4 F Insulin Human Regular (Novolin R) 0 unit SC ACHS [facility] PRN Reason: Protocol Last Admin: 07/27/17 17:31 Dose: 6 unit Lisinopril (Zestril) 10 mg PO DAILY [facility] Last Admin: 07/27/17 10:05 Dose: Not Given Ondansetron HCl (Zofran Inj) 6 mg IVP Q4 PRN PRN Reason: Nausea/Vomiting Sucralfate (Carafate Tab) 1 gm PO Q12 [facility] Last Admin: 07/27/17 09:58 Dose: Not Given Physical Exam - Constitutional Appears: Well, No Acute Distress - Head Exam Head Exam: ATRAUMATIC, NORMAL INSPECTION, NORMOCEPHALIC - Eye Exam Eye Exam: EOMI - ENT Exam ENT Exam: Mucous Membranes Moist - Respiratory Exam Respiratory Exam: NORMAL BREATHING PATTERN. absent: Respiratory Distress - Cardiovascular Exam Cardiovascular Exam: absent: JVD - GI/Abdominal Exam GI & Abdominal Exam: absent: Distended, Firm, Guarding, Rebound, Rigid - Extremities Exam Extremities exam: Positive for: normal inspection. Negative for: calf tenderness - Neurological Exam Neurological exam: Alert, Oriented x3 - Psychiatric Exam Psychiatric exam: Normal Affect, Normal Mood - Skin Skin Exam: Dry, Intact, Warm Results - Vital Signs Recent Vital Signs: Last Vital Signs Temp 98.5 F 07/27/17 16:00 Pulse 109 H 07/27/17 16:00 Resp 20 07/27/17 16:00 BP 150/90 07/27/17 16:00 Pulse Ox 98 07/27/17 16:00 - Labs Result Diagrams: 07/27/17 07:41 07/27/17 07:41 Labs: Laboratory Results - last 24 hr 07/26/17 07/27/17 07/27/17 21:18 07:15 07:41 WBC 8.2 RBC 4.36 Hgb 13.0 Hct 38.6 MCV 88.4 MCH 29.9 MCHC 33.8 RDW 13.0 Plt Count 193 MPV 9.8 Neut % (Auto) 66.8 Lymph % (Auto) 24.8 [place] % (Auto) 6.3 Eos % (Auto) 1.5 Baso % (Auto) 0.6 Neut # 5.5 Lymph # 2.0 [place] # 0.5 Eos # 0.1 Baso # 0.1 Sodium Potassium Chloride Carbon Dioxide Anion Gap BUN Creatinine Est GFR ( Amer) Est GFR (Non-Af Amer) POC Glucose (mg/dL) 272 H 263 H Random Glucose Calcium Phosphorus Magnesium Total Bilirubin AST ALT Alkaline Phosphatase Total Protein Albumin Globulin Albumin/Globulin Ratio Urine Microalbumin 07/27/17 07/27/17 07/27/17 07:41 08:30 12:32 WBC RBC Hgb Hct MCV MCH MCHC RDW Plt Count MPV Neut % (Auto) Lymph % (Auto) [place] % (Auto) Eos % (Auto) Baso % (Auto) Neut # Lymph # [place] # Eos # Baso # Sodium 137 Potassium 3.5 L Chloride 97 L Carbon Dioxide 28 Anion Gap 16 BUN 17 Creatinine 0.7 Est GFR ( Amer) > 60 Est GFR (Non-Af Amer) > 60 POC Glucose (mg/dL) 262 H Random Glucose 246 H Calcium 8.9 Phosphorus 2.7 Magnesium 1.9 Total Bilirubin 0.4 AST 50 H ALT 107 H D Alkaline Phosphatase 92 Total Protein 6.0 L Albumin 3.2 L Globulin 2.8 Albumin/Globulin Ratio 1.1 Urine Microalbumin 140.4 H 07/27/17 17:25 WBC RBC Hgb Hct MCV MCH MCHC RDW Plt Count MPV Neut % (Auto) Lymph % (Auto) [place] % (Auto) Eos % (Auto) Baso % (Auto) Neut # Lymph # [place] # Eos # Baso # Sodium Potassium Chloride Carbon Dioxide Anion Gap BUN Creatinine Est GFR ( Amer) Est GFR (Non-Af Amer) POC Glucose (mg/dL) 309 H Random Glucose Calcium Phosphorus Magnesium Total Bilirubin AST ALT Alkaline Phosphatase Total Protein Albumin Globulin Albumin/Globulin Ratio Urine Microalbumin Assessment & Plan - Assessment and Plan (Free Text) Assessment: 56yo F here for evaluation of abdominal pain, vomiting. General Surgery consulted for Central Venous Access - Thorough discussion had with patient about the risks and benefits of the proposed procedure. Written consent obtained and on chart. - Placed Right Femoral Triple Lumen Catheter under direct US guidance. Please refer to Procedure note. - Patient tolerated procedure well. No immediate complications - All lumens with good blood return. TLC Okay to use. - Perform Pancreas CT - Maalox as needed for dyspepsia - Please re-consult as necessary Further recs as per Dr. Smiley Lauren PGY1 Surgery pager: [phone] <Isaac Reis - Last Filed: 07/27/17 21:20> Meds - Medications Medications: Current Medications Docusate Sodium (Colace) 100 mg PO BID [facility] Last Admin: 07/27/17 17:32 Dose: Not Given Famotidine (Pepcid) 20 mg PO BID [facility] Last Admin: 07/27/17 17:32 Dose: 20 mg Heparin Sodium (Porcine) (Heparin) 5,000 units SC Q12 [facility] Last Admin: 07/27/17 10:45 Dose: Not Given Ibuprofen (Motrin Tab) 400 mg PO Q6 PRN PRN Reason: Fever >100.4 F Insulin Human Regular (Novolin R) 0 unit SC ACHS [facility] PRN Reason: Protocol Last Admin: 07/27/17 17:31 Dose: 6 unit Lisinopril (Zestril) 10 mg PO DAILY [facility] Last Admin: 07/27/17 10:05 Dose: Not Given Ondansetron HCl (Zofran Inj) 6 mg IVP Q4 PRN PRN Reason: Nausea/Vomiting Sucralfate (Carafate Tab) 1 gm PO Q12 [facility] Last Admin: 07/27/17 09:58 Dose: Not Given Results - Vital Signs Recent Vital Signs: Last Vital Signs Temp 98.5 F 07/27/17 16:00 Pulse 109 H 07/27/17 16:00 Resp 20 07/27/17 16:00 BP 150/90 07/27/17 16:00 Pulse Ox 98 07/27/17 16:00 - Labs Result Diagrams: 07/27/17 07:41 07/27/17 07:41 Labs: Laboratory Results - last 24 hr 07/26/17 07/27/17 07/27/17 21:18 07:15 07:41 WBC 8.2 RBC 4.36 Hgb 13.0 Hct 38.6 MCV 88.4 MCH 29.9 MCHC 33.8 RDW 13.0 Plt Count 193 MPV 9.8 Neut % (Auto) 66.8 Lymph % (Auto) 24.8 [place] % (Auto) 6.3 Eos % (Auto) 1.5 Baso % (Auto) 0.6 Neut # 5.5 Lymph # 2.0 [place] # 0.5 Eos # 0.1 Baso # 0.1 Sodium Potassium Chloride Carbon Dioxide Anion Gap BUN Creatinine Est GFR ( Amer) Est GFR (Non-Af Amer) POC Glucose (mg/dL) 272 H 263 H Random Glucose Calcium Phosphorus Magnesium Total Bilirubin AST ALT Alkaline Phosphatase Total Protein Albumin Globulin Albumin/Globulin Ratio Urine Microalbumin 07/27/17 07/27/17 07/27/17 07:41 08:30 12:32 WBC RBC Hgb Hct MCV MCH MCHC RDW Plt Count MPV Neut % (Auto) Lymph % (Auto) [place] % (Auto) Eos % (Auto) Baso % (Auto) Neut # Lymph # [place] # Eos # Baso # Sodium 137 Potassium 3.5 L Chloride 97 L Carbon Dioxide 28 Anion Gap 16 BUN 17 Creatinine 0.7 Est GFR ( Amer) > 60 Est GFR (Non-Af Amer) > 60 POC Glucose (mg/dL) 262 H Random Glucose 246 H Calcium 8.9 Phosphorus 2.7 Magnesium 1.9 Total Bilirubin 0.4 AST 50 H ALT 107 H D Alkaline Phosphatase 92 Total Protein 6.0 L Albumin 3.2 L Globulin 2.8 Albumin/Globulin Ratio 1.1 Urine Microalbumin 140.4 H 07/27/17 17:25 WBC RBC Hgb Hct MCV MCH MCHC RDW Plt Count MPV Neut % (Auto) Lymph % (Auto) [place] % (Auto) Eos % (Auto) Baso % (Auto) Neut # Lymph # [place] # Eos # Baso # Sodium Potassium Chloride Carbon Dioxide Anion Gap BUN Creatinine Est GFR ( Amer) Est GFR (Non-Af Amer) POC Glucose (mg/dL) 309 H Random Glucose Calcium Phosphorus Magnesium Total Bilirubin AST ALT Alkaline Phosphatase Total Protein Albumin Globulin Albumin/Globulin Ratio Urine Microalbumin Attending/Attestation - Attestation I have personally seen and examined this patient.: Yes I have fully participated in the care of the patient.: Yes I have reviewed all pertinent clinical information: Yes Notes (Text): 07/27/17 21:19 Pt was seen and examined at bedside Agree with above note and assessment Pt with Abdominal pain and Poor venous access Femoral TLC at bedside Consent C.w current mx Plan d.w pt in detail Risk and benefit explained in detail.
--- NOTE | 2017-07-28 03:09 | OP ---
PROCEDURE DATE: 07/27/2017 PREOPERATIVE DIAGNOSES: 1. Abdominal pain. 2. Poor venous access. POSTOPERATIVE DIAGNOSES: 1. Abdominal pain. 2. Poor venous access. PROCEDURE: 1. Right femoral triple lumen catheter. 2. Ultrasound guided venous access. SURGEON: Dr. Reis. HIGH [employer]CHO[employer] TUTOR: Travis Lauren, PGY-1 resident. ANESTHESIA: Local anesthesia. ESTIMATED BLOOD LOSS: Around 10 mL. DRAIN: None. PATHOLOGY: None. COMPLICATIONS: None. INTRAOPERATIVE FINDINGS: The patient had a patent right femoral vein on ultrasound. DESCRIPTION OF THE PROCEDURE: This 56-year-old female who was diagnosed with abdominal pain and patient had a very poor venous access and patient needed a CT scan for the pancreatic protocol and the surgery was consulted for the central lumen catheter placement and the patient was seen and examined at the bedside and consented. The patient was placed in supine position. The right groin was prepped and draped under ultrasound guidance. The right femoral vein was visualized and local anesthesia was injected and right femoral venous access was done. A guidewire was placed. The triple lumen catheter was also placed using the Seldinger technique and all the ports was flushed and there was a good blood return and the catheter was secured to the skin. Dry sterile dressing was applied. The patient tolerated the procedure well. Count of the instrument was correct. There was no apparent complication. Isaac Reis MD JANEEN
[2017-07-28 07:14] LABS: BASO % 0.5 % (0.0-2.0); EOS # 0.1 K/uL (0.0-0.7); HEMATOCRIT 38.8 % (34.0-47.0); LYMPH # 1.7 K/uL (1.0-4.3); LYMPH % 25.1 % (20.0-40.0); MEAN CELL VOLUME 87.6 fL (81.0-99.0); MEAN CORPUSCULAR HGB CONC 34.3 g/dL (33.0-37.0); MEAN PLATELET VOLUME 9.8 fL (7.2-11.7); MONO # 0.5 K/uL (0.0-0.8); MONO % 6.7 % (0.0-10.0); WHITE BLOOD COUNT 6.8 K/uL (4.8-10.8)
[2017-07-28 07:58] LABS: CHLORIDE 100 mmol/L (98-107); POTASSIUM 3.5 mmol/L (3.6-5.2); SODIUM 137 mmol/L (132-148)
[2017-07-28 08:00] LABS: AST/SGOT 23 U/L (14-36); BILIRUBIN,TOTAL 0.4 mg/dL (0.2-1.3); CARBON DIOXIDE 28 mmol/L (22-30); GFR AFRICAN-AMERICAN > 60
[2017-07-28 08:01] LABS: ALB/GLOB RATIO 1.2 (1.0-2.1); ALKALINE PHOSPHATASE 93 U/L (38-126); ALT/SGPT 86 U/L (9-52); BLOOD UREA NITROGEN 12 mg/dL (7-17); CALCIUM 8.8 mg/dl (8.6-10.4); GLUCOSE,RANDOM 261 mg/dL (65-105); PHOSPHOROUS 2.4 mg/dL (2.5-4.5); TOTAL PROTEIN 6.1 g/dL (6.3-8.3)
[2017-07-28 08:02] LABS: MAGNESIUM 1.7 mg/dL (1.6-2.3)
[2017-07-28 08:06] LABS: CA 19-9 < 1.4 U/mL (0-37)
[2017-07-28] MEDS: (Novolin R) Insulin Human Regular 100 units/ml vial SC SCH ×4 (08:07→21:22)
[2017-07-28 08:52] VITALS: RESP 20
[2017-07-28] MEDS: Potassium Chloride 20 mEq ER Tab PO SCH (10:19)
[2017-07-28] MEDS: Potassium & Sodium Phosphate PO SCH ×3 (10:23→16:29)
--- NOTE | 2017-07-28 11:05 | CP.PCM.PN ---
<Kizzy Perez - Last Filed: 07/28/17 15:44> Subjective - Date & Time of Evaluation Date of Evaluation: 07/28/17 Time of Evaluation: 07:00 - Subjective Subjective: PGY1- Medicine Note- Dr. Brooks's Service Patient seen and examined at bedside. Patient was very nauseous and had vomited 4 times this morning. Patient said she had alot of abdominal discomfort during the vomiting episodes, but not after. Patient denies shortness of breath, chest pain, diarrhea, or constipation. Objective - Vital Signs/Intake and Output Vital Signs (last 24 hours): Temp Pulse Resp BP Pulse Ox 98.7 F 87 20 161/80 H 95 07/28/17 08:51 07/28/17 08:51 07/28/17 08:51 07/28/17 08:51 07/28/17 08:51 Intake and Output: 07/28/17 07/28/17 06:59 18:59 Intake Total 750 Balance 750 - Medications Medications: Current Medications Docusate Sodium (Colace) 100 mg PO BID [facility] Last Admin: 07/28/17 10:23 Dose: 100 mg Famotidine (Pepcid) 20 mg PO BID [facility] Last Admin: 07/28/17 10:20 Dose: 20 mg Heparin Sodium (Porcine) (Heparin) 5,000 units SC Q12 [facility] Last Admin: 07/28/17 10:23 Dose: 5,000 units Ibuprofen (Motrin Tab) 400 mg PO Q6 PRN PRN Reason: Fever >100.4 F Insulin Human Regular (Novolin R) 0 unit SC ACHS [facility] PRN Reason: Protocol Last Admin: 07/28/17 08:07 Dose: Not Given Lisinopril (Zestril) 10 mg PO DAILY [facility] Last Admin: 07/28/17 10:20 Dose: 10 mg Ondansetron HCl (Zofran Inj) 6 mg IVP Q4 PRN PRN Reason: Nausea/Vomiting Last Admin: 07/28/17 05:22 Dose: 6 mg Potassium Chloride (K-Dur 20 Meq Er Tab) 20 meq PO DAILY [facility] Last Admin: 07/28/17 10:19 Dose: 20 meq Potassium Phos/Sodium Phos (Neutra-Phos) 1 pkt PO TIDCC [facility] Last Admin: 09/11/17 10:23 Dose: Not Given Sucralfate (Carafate Tab) 1 gm PO Q12 [facility] Last Admin: 07/28/17 10:20 Dose: 1 gm - Labs Labs: 07/28/17 07:04 07/28/17 07:04 - Constitutional Appears: Non-toxic, No Acute Distress - Head Exam Head Exam: ATRAUMATIC, NORMAL INSPECTION, NORMOCEPHALIC - Eye Exam Eye Exam: EOMI, Normal appearance - ENT Exam ENT Exam: Mucous Membranes Moist - Neck Exam Neck Exam: Full ROM - Respiratory Exam Respiratory Exam: Clear to Ausculation Bilateral, NORMAL BREATHING PATTERN. absent: Rales, Rhonchi, Wheezes, Respiratory Distress, Stridor - Cardiovascular Exam Cardiovascular Exam: REGULAR RHYTHM, RRR. absent: Gallop, Rubs, Murmur - GI/Abdominal Exam GI & Abdominal Exam: Soft, Normal Bowel Sounds - Extremities Exam Extremities Exam: Full ROM, Normal Inspection. 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 Immediately adjacent to the splenic vein and not to the splenic artery. In that the late arterial phase of pancreatic parenchymal enhancement was not imaged adequately during this examination, this examination is limited for evaluation of this pancreatic tail mass. A repeat examination utilizing pancreatic protocol is advised. Fatty infiltration of the liver. No other significant abnormality is identified. * CA-19-9: <1.4 * GI ([place]) * R. Fem TLC removed on 07/28 and midline placed * CT abd/ pelvis w/w/o contrast (pancreatic protocol) to be done on 07/29 Hypokalemia * 3.5-20 kdur given * Mag - 1.7 * Phos - 2.4, neutraphos 1 packet po TIDCC * monitor Elevated LFTs * Monitor Leukocytosis (L. Shift) * resolved, 6.8 on 9/11 * No fever * Monitor Constipation * Colace 100mg BID IDDM2 * Hold Metformin for CT, restart on 07/30/17 * started home med Glargine 20 u daily (on 07/28) * ISS Medium * Accuchecks * A1C - 8.4 * Urine Microalbumin - 140.4 * Lipid Panel * TG 148 * Cholesterol = 144 * LDL = 88 * HDL = 30 HTN * Lisinopril 10mg PO QD * started home medication Toprol xl 50 mg daily (on 07/28) GERD * Pepcid 20mg BID PPX * Pepcid as above * Heparin 5000 SC Q12 * PT/OT * Ambulate <Alva Brooksn M - Last Filed: 07/28/17 16:54> Objective - Vital Signs/Intake and Output Vital Signs (last 24 hours): Temp Pulse Resp BP Pulse Ox 98.1 F 105 H 20 141/89 96 07/28/17 15:00 07/28/17 15:00 07/28/17 15:00 07/28/17 15:00 07/28/17 15:00 - Medications Medications: Current Medications Docusate Sodium (Colace) 100 mg PO BID [facility] Last Admin: 07/28/17 10:23 Dose: 100 mg Famotidine (Pepcid) 20 mg PO BID [facility] Last Admin: 07/28/17 10:20 Dose: 20 mg Heparin Sodium (Porcine) (Heparin) 5,000 units SC Q12 [facility] Last Admin: 07/28/17 10:23 Dose: 5,000 units Ibuprofen (Motrin Tab) 400 mg PO Q6 PRN PRN Reason: Fever >100.4 F Insulin Glargine (Lantus) 20 unit SC DAILY [facility] Last Admin: 07/28/17 14:08 Dose: 20 units Insulin Human Regular (Novolin R) 0 unit SC ACHS [facility] PRN Reason: Protocol Last Admin: 07/28/17 11:46 Dose: 4 unit Lisinopril (Zestril) 10 mg PO DAILY [facility] Last Admin: 07/28/17 10:20 Dose: 10 mg Metoclopramide HCl (Reglan) 10 mg IVP Q8H PRN PRN Reason: Nausea/Vomiting Metoprolol Succinate (Toprol Xl) 50 mg PO DAILY [facility] Last Admin: 07/28/17 16:08 Dose: 50 mg Ondansetron HCl (Zofran Inj) 6 mg IVP Q4 PRN PRN Reason: Nausea/Vomiting Last Admin: 07/28/17 05:22 Dose: 6 mg Potassium Chloride (K-Dur 20 Meq Er Tab) 20 meq PO DAILY [facility] Last Admin: 07/28/17 10:19 Dose: 20 meq Potassium Phos/Sodium Phos (Neutra-Phos) 1 pkt PO TIDCC [facility] Last Admin: 07/28/17 16:29 Dose: 1 pkt Sucralfate (Carafate Tab) 1 gm PO Q12 [facility] Last Admin: 07/28/17 10:20 Dose: 1 gm Attending/Attestation - Attestation I have personally seen and examined this patient.: Yes I have fully participated in the care of the patient.: Yes I have reviewed all pertinent clinical information, including history, physical exam and plan: Yes Notes (Text): 07/28/17 16:53 Patient was seen and examined at bedside with the resident. Patient complains of for nausea. We are awaiting pancreatic protocol CT scan of the abdomen. We will titrate the insulin for optimal sugar control. I discussed the plan of care with the resident and agree with the history and physical and assessment/plan documented.
--- NOTE | 2017-07-28 12:44 | CP.PCM.CON ---
History of Present Illness - History of Present Illness History of Present Illness: Palliative consult Requested by Umu Casarez Reason: Code status discussion Patient is a 56 yo female admitted from home with abdominal pain and subjective fever for > 5 days. Patient reports taking only Pepto Bismol for those symptoms. The Ct abdomen and pelvis was significant for atelectasis and pancreas mass of 11 mm at the tail of pancreas. The repeat CT abd is pending. patient requested DNR/DNI status and I was called to assist in the process. PMH: GERD, HTN, DM Soc. Hx: , lives at home Fam. hx: Prostate, breast and pancreas cancer runs in family Review of Systems - Constitutional Constitutional: Weakness - EENT Eyes: absent: As Per HPI, Blind Spots, Blurred Vision, Change in Vision, Decreased Night Vision, Diplopia, Discharge, Dry Eye, Exophthalmos, Floaters, Irritation, Itchy Eyes, Loss of Peripheral Vision, Pain, Photophobia, Requires Corrective Lenses, Sees Flashes, Spots in Vision, Tunnel Vision, Other Visual Disturbances, Loss of Vision, Other Ears: absent: As Per HPI, Decreased Hearing, Ear Discharge, Ear Pain, Tinnitus, Abnormal Hearing, Disequilibrium, Dizziness, Other Nose/Mouth/Throat: absent: As Per HPI, Epistaxis, Nasal Congestion, Nasal Discharge, Nasal Obstruction, Nasal Trauma, Nose Pain, Post Nasal Drip, Sinus Pain, Sinus Pressure, Bleeding Gums, Change in Voice, Dental Pain, Dry Mouth, Dysphagia, Halitosis, Hoarsness, Lip Swelling, Mouth Lesions, Mouth Pain, Odynophagia, Sore Throat, Throat Swelling, Tongue Swelling, Facial Pain, Neck Pain, Neck Mass, Other - Breasts Breasts: absent: As Per HPI, Change in Shape, Mass, Pain, Nipple Discharge, Nipple Inversion, Skin Changes, Swelling, Other - Cardiovascular Cardiovascular: absent: As Per HPI, Acrocyanosis, Chest Pain, Chest Pain at Rest , Chest Pain with Activity, Claudication, Diaphoresis, Dyspnea, Dyspnea on Exertion, Edema, Irregular Heart Rhythm, Pain Radiating to Arm/Neck/Jaw, Leg Edema, Leg Ulcers, Lightheadedness, Orthopnea, Palpitations, Paroxysmal Nocturnal Dyspnea, Pedal Edema, Radiating Pain, Rapid Heart Rate, Slow Heart Rate, Syncope, Other - Respiratory Respiratory: absent: As Per HPI, Cough, Dyspnea, Hemoptysis, Dyspnea on Exertion , Wheezing, Snoring, Stridor, Pain on Inspiration, Chest Congestion, Excessive Mucous Production, Change in Mucous Color, Pain with Coughing, Other - Gastrointestinal Gastrointestinal: Abdominal Pain, Constipation, Nausea, Vomiting - Genitourinary Genitourinary: absent: As Per HPI, Change in Urinary Stream, Difficulty Urinating, Dysuria, Flank Pain, Hematuria, Pyuria, Nocturia, Urinary Incontinence, Urinary Frequency, Urinary Hesitance, Urinary Urgency, Voiding Freq/Small Amts, Freq UTI, Hx Renal/Bladder Calculi, Hx /Renal Surgery, Bladder Distension, Other - Reproductive: Female Reproductive:Female: Post Menopausal - Menstruation Menstruation: Post Menopausal - Musculoskeletal Musculoskeletal: absent: As Per HPI, Abnormal Gait, Arthralgias, Atrophy, Back Pain, Deformity, Joint Swelling, Limited Range of Motion, Loss of Height, Muscle Cramps, Muscle Weakness, Myalgias, Neck Pain, Numbness, Radiating Pain into Limb, Stiffness, Tingling, Other - Integumentary Integumentary: absent: As Per HPI, Acne, Alopecia, Bleeding Lesions, Change in Hair, Change in Nails, Change in Pigmentation, Changing Lesions, Dry Skin, Erythema, Furuncle, Hirsutism, Lesions, New Lesions, Non-Healing Lesions, Photosensitivity, Pruritus, Rash, Skin Pain, Skin Ulcer, Sores, Striae, Swelling , Unusual Bruising, Wounds, Jaundice, Other - Neurological Neurological: absent: As Per HPI, Abnormal Gait, Abnormal Hearing, Abnormal Movements, Abnormal Speech, Behavioral Changes, Burning Sensations, Confusion, Convulsions, Disequilibrium, Dizziness, Numbness, Focal Weakness, Frequent Falls , Headaches, Lack of Coordination, Loss of Vision, Memory Loss, Paresthesias, Radicular Pain, Restless Legs, Sensory Deficit, Syncope, Tingling, Tremor, Vertigo, Weakness, Other Visual Disturbances, Other - Psychiatric Psychiatric: absent: As Per HPI, Abnormal Sleep Pattern, Anhedonia, Anxiety, Auditory Hallucinations, Behavioral Changes, Change in Appetite, Change in Libido, Confusion, Depression, Difficulty Concentrating, Hallucinations, Homicidal Ideation, Hopelessness, Irritability, Memory Loss, Mood Swings, Panic Attacks, Paranoia, Suicidal Ideation, Visual Hallucinations, Tactile Hallucinations, Other - Endocrine Endocrine: absent: As Per HPI, Change in Body Appearance, Change in Libido, Cold Intolorance, Deepening of Voice, Excessive Sweating, Fatigue, Flushing, Heat Intolorance, Increase in Ring/Shoe/Hat Size, Palpitations, Polydipsia, Polyphagia, Polyuria, Other - Hematologic/Lymphatic Hematologic: absent: As Per HPI, Easy Bleeding, Easy Bruising, Lymphadenopathy, Other Past Patient History - Infectious Disease Hx of Infectious Diseases: None - Past Medical History & Family History Past Medical History?: Yes - Past Social History Smoking Status: Heavy Smoker > 10 Cigarettes Daily - CARDIAC Hx Hypertension: Yes - PULMONARY Hx Tuberculosis: No - NEUROLOGICAL Hx Seizures: No - ENDOCRINE/METABOLIC Hx Diabetes Mellitus Type 2: Yes - HEMATOLOGICAL/ONCOLOGICAL Hx Human Immunodeficiency Virus (HIV): No - MUSCULOSKELETAL/RHEUMATOLOGICAL Hx Falls: No - GENITOURINARY/GYNECOLOGICAL Hx Sexually Transmitted Disorders: No - PSYCHIATRIC Hx Substance Use: No - SURGICAL HISTORY Hx Surgeries: Yes Other/Comment: oral sx - ANESTHESIA Hx Anesthesia: No Hx Anesthesia Reactions: No Meds Allergies/Adverse Reactions: Allergies Allergy/AdvReac Type Severity Reaction Status Date / Time No Known Allergies Allergy Verified 07/25/17 09:19 - Medications Medications: Current Medications Docusate Sodium (Colace) 100 mg PO BID [facility] Last Admin: 07/28/17 10:23 Dose: 100 mg Famotidine (Pepcid) 20 mg PO BID [facility] Last Admin: 07/28/17 10:20 Dose: 20 mg Heparin Sodium (Porcine) (Heparin) 5,000 units SC Q12 [facility] Last Admin: 07/28/17 10:23 Dose: 5,000 units Ibuprofen (Motrin Tab) 400 mg PO Q6 PRN PRN Reason: Fever >100.4 F Insulin Human Regular (Novolin R) 0 unit SC ACHS [facility] PRN Reason: Protocol Last Admin: 07/28/17 11:46 Dose: 4 unit Lisinopril (Zestril) 10 mg PO DAILY [facility] Last Admin: 07/28/17 10:20 Dose: 10 mg Ondansetron HCl (Zofran Inj) 6 mg IVP Q4 PRN PRN Reason: Nausea/Vomiting Last Admin: 07/28/17 05:22 Dose: 6 mg Potassium Chloride (K-Dur 20 Meq Er Tab) 20 meq PO DAILY [facility] Last Admin: 07/28/17 10:19 Dose: 20 meq Potassium Phos/Sodium Phos (Neutra-Phos) 1 pkt PO TIDCC [facility] Last Admin: 07/28/17 11:46 Dose: 1 pkt Sucralfate (Carafate Tab) 1 gm PO Q12 [facility] Last Admin: 07/28/17 10:20 Dose: 1 gm Results - Vital Signs Recent Vital Signs: Last Vital Signs Temp 98.7 F 07/28/17 08:51 Pulse 87 07/28/17 08:51 Resp 20 07/28/17 08:51 BP 161/80 H 07/28/17 08:51 Pulse Ox 95 07/28/17 08:51 - Labs Result Diagrams: 07/28/17 07:04 07/28/17 07:04 Labs: Laboratory Results - last 24 hr 07/26/17 07/27/17 07/27/17 08:18 17:25 21:55 WBC RBC Hgb Hct MCV MCH MCHC RDW Plt Count MPV Neut % (Auto) Lymph % (Auto) Arthur % (Auto) Eos % (Auto) Baso % (Auto) Neut # Lymph # Arthur # Eos # Baso # Sodium Potassium Chloride Carbon Dioxide Anion Gap BUN Creatinine Est GFR ( Amer) Est GFR (Non-Af Amer) POC Glucose (mg/dL) 309 H 231 H Random Glucose Hemoglobin A1c 8.4 H D Calcium Phosphorus Magnesium Total Bilirubin AST ALT Alkaline Phosphatase Total Protein Albumin Globulin Albumin/Globulin Ratio CA 19-9 Antigen 07/28/17 07/28/17 07/28/17 07:04 07:04 07:14 WBC 6.8 RBC 4.42 Hgb 13.3 Hct 38.8 MCV 87.6 MCH 30.0 MCHC 34.3 RDW 13.0 Plt Count 187 MPV 9.8 Neut % (Auto) 66.7 Lymph % (Auto) 25.1 Arthur % (Auto) 6.7 Eos % (Auto) 1.0 Baso % (Auto) 0.5 Neut # 4.6 Lymph # 1.7 Arthur # 0.5 Eos # 0.1 Baso # 0.0 Sodium 137 Potassium 3.5 L Chloride 100 Carbon Dioxide 28 Anion Gap 13 BUN 12 Creatinine 0.7 Est GFR ( Amer) > 60 Est GFR (Non-Af Amer) > 60 POC Glucose (mg/dL) 291 H Random Glucose 261 H Hemoglobin A1c Calcium 8.8 Phosphorus 2.4 L Magnesium 1.7 Total Bilirubin 0.4 AST 23 ALT 86 H Alkaline Phosphatase 93 Total Protein 6.1 L Albumin 3.4 L Globulin 2.7 Albumin/Globulin Ratio 1.2 CA 19-9 Antigen < 1.4 07/28/17 11:18 WBC RBC Hgb Hct MCV MCH MCHC RDW Plt Count MPV Neut % (Auto) Lymph % (Auto) Arthur % (Auto) Eos % (Auto) Baso % (Auto) Neut # Lymph # Arthur # Eos # Baso # Sodium Potassium Chloride Carbon Dioxide Anion Gap BUN Creatinine Est GFR ( Amer) Est GFR (Non-Af Amer) POC Glucose (mg/dL) 268 H Random Glucose Hemoglobin A1c Calcium Phosphorus Magnesium Total Bilirubin AST ALT Alkaline Phosphatase Total Protein Albumin Globulin Albumin/Globulin Ratio CA 19-9 Antigen Assessment & Plan - Assessment and Plan (Free Text) Assessment: Palliative consult Code status DNR/DNI, no Advance directive was on chart, PPS 40% I reviewed medical records, all diagnostic studies, examined and interviewed patient in the bed. Patient is alert, oriented, X 3 in no acute distress. Mood is sad. Patient tries to remain stoic but her distress is noticeable. Patient answers very politely in short sentences only, signaling she would like to be left alone. Skin is intact and warm to touch, breath sounds are clear, abdomen softly distended. patient reports no BM X 1 week. This morning patient vomited undigested food from yesterday. patient recently advanced to regular diet. Complains of abdominal pain , controlled by the medications only. After given Reglan, nausea subsided. I acknowledged patient's desire to be alone and in brief interview elicited patient's understanding about DNR/DNI status. Patient showed good understanding. I reviewed the POLST with her and assisted with completing it. Patient choose DNR/DNI . This was communicated to nursing. Patient and I agreed to meet again later on in the day, once she feels better for further goals of care discussion. Impression * Patient is newly diagnosed with pancreatic mass causing her large deal of abdominal pain and food intolerance * Patient has known Hx of cancer and is anticipating the same prognosis with her pancreas mass. * Patient shows signs of depression * Solid food intolerance * Abdominal pain Suggestion * Monitor for worsening depression * Reassure patient of care specific to her needs * Would DC Motrin for pain and give Morphine IV instead * Would change diet to soft diet * Patient needs bowel regimen * DNR/DNI * POLST on chart I will fallow up with patient and give her support during this very difficult time.
[2017-07-28] MEDS: (Lantus) Insulin Glargine, Recombinant SC SCH (14:08)
[2017-07-28] MEDS: Metoprolol Succinate 50 mg XL Tab PO SCH (16:08)
[2017-07-29] MEDS: Potassium & Sodium Phosphate PO SCH ×3 (08:15→18:05)
[2017-07-29] MEDS ORDERED: Iohexol 240 (50 ml) PO ONE (08:15)
[2017-07-29] MEDS: (Novolin R) Insulin Human Regular 100 units/ml vial SC SCH (08:16)
--- NOTE | 2017-07-29 08:35 | CP.PCM.PN ---
Subjective - Date & Time of Evaluation Date of Evaluation: 07/29/17 Time of Evaluation: 08:32 - Subjective Subjective: F/U abdom pain\ Pt reports abdom pain is much better. + constip. Denies RB, melena, fever, chills SZ, LOC, ROSSI, cough, hematuria, vomiting Objective - Vital Signs/Intake and Output Vital Signs (last 24 hours): Temp Pulse Resp BP Pulse Ox 97.9 F 82 20 118/72 97 07/29/17 01:00 07/29/17 01:00 07/29/17 01:00 07/29/17 01:00 07/29/17 01:00 Intake and Output: 07/29/17 07/29/17 06:59 18:59 Intake Total 400 Balance 400 - Medications Medications: Current Medications Docusate Sodium (Colace) 100 mg PO BID [facility] Last Admin: 07/28/17 17:27 Dose: 100 mg Famotidine (Pepcid) 20 mg PO BID [facility] Last Admin: 07/28/17 17:27 Dose: 20 mg Heparin Sodium (Porcine) (Heparin) 5,000 units SC Q12 [facility] Last Admin: 07/28/17 21:25 Dose: 5,000 units Ibuprofen (Motrin Tab) 400 mg PO Q6 PRN PRN Reason: Fever >100.4 F Insulin Glargine (Lantus) 20 unit SC DAILY [facility] Last Admin: 07/28/17 14:08 Dose: 20 units Insulin Human Regular (Novolin R) 0 unit SC ACHS [facility] PRN Reason: Protocol Last Admin: 07/29/17 08:16 Dose: 4 unit Lisinopril (Zestril) 10 mg PO DAILY [facility] Last Admin: 07/28/17 10:20 Dose: 10 mg Metoclopramide HCl (Reglan) 10 mg IVP Q8H PRN PRN Reason: Nausea/Vomiting Metoprolol Succinate (Toprol Xl) 50 mg PO DAILY [facility] Last Admin: 07/28/17 16:08 Dose: 50 mg Ondansetron HCl (Zofran Inj) 6 mg IVP Q4 PRN PRN Reason: Nausea/Vomiting Last Admin: 07/28/17 05:22 Dose: 6 mg Potassium Chloride (K-Dur 20 Meq Er Tab) 20 meq PO DAILY [facility] Last Admin: 07/28/17 10:19 Dose: 20 meq Potassium Phos/Sodium Phos (Neutra-Phos) 1 pkt PO TIDCC [facility] Last Admin: 07/29/17 08:15 Dose: 1 pkt Sucralfate (Carafate Tab) 1 gm PO Q12 [facility] Last Admin: 07/28/17 21:25 Dose: 1 gm - Constitutional Appears: Well - Neck Exam Neck Exam: absent: Tenderness - Respiratory Exam Respiratory Exam: Clear to Ausculation Bilateral - Cardiovascular Exam Cardiovascular Exam: RRR - GI/Abdominal Exam GI & Abdominal Exam: Soft, Normal Bowel Sounds. absent: Guarding, Tenderness, Mass - Neurological Exam Neurological Exam: Alert, Oriented x3 Assessment and Plan (1) Abdominal pain Assessment & Plan: Improving. I dont think pancreas mass is cause for pain. Status: Acute (2) Leukocytosis Assessment & Plan: better Status: Acute (3) Diabetes Status: Acute (4) HTN (hypertension), benign Status: Acute (5) Vomiting Assessment & Plan: better Status: Acute (6) Hypertension Status: Chronic (7) Mass of pancreas Assessment & Plan: CA19 is normal. For repeat CT with pancreas protocol. Other options are MRI and endo sono. Status: Acute
[2017-07-29 08:52] LABS: BASO % 0.5 % (0.0-2.0); EOS # 0.2 K/uL (0.0-0.7); EOS % 1.7 % (0.0-4.0); HEMATOCRIT 40.6 % (34.0-47.0); LYMPH # 2.5 K/uL (1.0-4.3); LYMPH % 26.9 % (20.0-40.0); MEAN CELL VOLUME 89.1 fL (81.0-99.0); MEAN CORPUSCULAR HEMOGLOBIN 30.6 pg (27.0-31.0); MEAN CORPUSCULAR HGB CONC 34.3 g/dL (33.0-37.0); MEAN PLATELET VOLUME 9.8 fL (7.2-11.7); MONO # 0.6 K/uL (0.0-0.8); MONO % 6.3 % (0.0-10.0); RED CELL DISTRIBUTION WIDTH 13.1 % (11.5-14.5); WHITE BLOOD COUNT 9.2 K/uL (4.8-10.8)
[2017-07-29 09:10] LABS: CHLORIDE 99 mmol/L (98-107)
[2017-07-29 09:11] LABS: POTASSIUM 4.2 mmol/L (3.6-5.2); SODIUM 136 mmol/L (132-148)
[2017-07-29 09:13] LABS: ALB/GLOB RATIO 1.3 (1.0-2.1); ALKALINE PHOSPHATASE 75 U/L (38-126); ALT/SGPT 65 U/L (9-52); AST/SGOT 16 U/L (14-36); BILIRUBIN,TOTAL 0.5 mg/dL (0.2-1.3); BLOOD UREA NITROGEN 16 mg/dL (7-17); CARBON DIOXIDE 26 mmol/L (22-30); GFR AFRICAN-AMERICAN > 60; GLUCOSE,RANDOM 246 mg/dL (65-105); TOTAL PROTEIN 6.4 g/dL (6.3-8.3)
[2017-07-29 09:14] LABS: MAGNESIUM 1.7 mg/dL (1.6-2.3)
--- NOTE | 2017-07-29 09:28 | CP.PCM.PN ---
<Anuja Brock - Last Filed: 07/29/17 15:05> Subjective - Date & Time of Evaluation Date of Evaluation: 07/29/17 Time of Evaluation: 07:00 - Subjective Subjective: Medicine Progress Note: Patient was seen and examined at [facility] in the AM. Patient was sleeping comfortably in bed when she was first seen in the morning. Later in the morning around 10am patient was crying because she felt overwhelmed with the results of her abdominal catscan yesterday and the future test that she had to have done today. Patient states she drank the oral contrast for the pancreatic catscan but she felt nauseous after and threw up some of the contrast. Per nurse the patient's midline IV was not working this morning. Patient states she does smoke about a half pack per day for 30 years but she states she does not feel like she needs a Nicotine patch. She states she used to drink about a pack of beer per day but she quit this past November. She also used heroin and cocaine nasally but she also quit her drug use this past November as well. Objective - Vital Signs/Intake and Output Vital Signs (last 24 hours): Temp Pulse Resp BP Pulse Ox 98.2 F 77 20 127/73 97 07/29/17 09:16 07/29/17 09:16 07/29/17 09:16 07/29/17 09:16 07/29/17 09:16 Intake and Output: 07/29/17 07/29/17 06:59 18:59 Intake Total 400 Balance 400 - Medications Medications: Current Medications Docusate Sodium (Colace) 100 mg PO BID [facility] Last Admin: 07/28/17 17:27 Dose: 100 mg Famotidine (Pepcid) 20 mg PO BID [facility] Last Admin: 07/28/17 17:27 Dose: 20 mg Heparin Sodium (Porcine) (Heparin) 5,000 units SC Q12 [facility] Last Admin: 07/28/17 21:25 Dose: 5,000 units Ibuprofen (Motrin Tab) 400 mg PO Q6 PRN PRN Reason: Fever >100.4 F Insulin Aspart (Novolog) 5 unit SC TIDAC [facility] Insulin Aspart (Novolog) 0 unit SC ACHS [facility] PRN Reason: Protocol Insulin Glargine (Lantus) 20 unit SC DAILY [facility] Last Admin: 09/11/17 14:08 Dose: 20 units Lisinopril (Zestril) 10 mg PO DAILY [facility] Last Admin: 07/28/17 10:20 Dose: 10 mg Metoclopramide HCl (Reglan) 10 mg IVP Q8H PRN PRN Reason: Nausea/Vomiting Last Admin: 07/29/17 09:17 Dose: 10 mg Metoprolol Succinate (Toprol Xl) 50 mg PO DAILY [facility] Last Admin: 07/28/17 16:08 Dose: 50 mg Ondansetron HCl (Zofran Inj) 6 mg IVP Q4 PRN PRN Reason: Nausea/Vomiting Last Admin: 07/28/17 05:22 Dose: 6 mg Potassium Chloride (K-Dur 20 Meq Er Tab) 20 meq PO DAILY [facility] Last Admin: 07/28/17 10:19 Dose: 20 meq Potassium Phos/Sodium Phos (Neutra-Phos) 1 pkt PO TIDCC [facility] Last Admin: 07/29/17 08:15 Dose: 1 pkt Sucralfate (Carafate Tab) 1 gm PO Q12 [facility] Last Admin: 07/28/17 21:25 Dose: 1 gm - Labs Labs: 07/29/17 08:24 07/29/17 08:24 - Constitutional Appears: In Acute Distress (was crying due to worry of her test results ) - Head Exam Head Exam: ATRAUMATIC, NORMAL INSPECTION, NORMOCEPHALIC - Eye Exam Eye Exam: EOMI, Normal appearance, PERRL Pupil Exam: NORMAL ACCOMODATION - ENT Exam ENT Exam: Mucous Membranes Moist - Respiratory Exam Respiratory Exam: Clear to Ausculation Bilateral, NORMAL BREATHING PATTERN - Cardiovascular Exam Cardiovascular Exam: REGULAR RHYTHM, RRR, +S1, +S2 - GI/Abdominal Exam GI & Abdominal Exam: Soft, Tenderness (RUQ tenderness ), Normal Bowel Sounds - Extremities Exam Extremities Exam: Normal Inspection - Neurological Exam Neurological Exam: Alert, Awake, Oriented x3 - Psychiatric Exam Psychiatric exam: Anxious - Skin Skin Exam: Normal Color, Warm Assessment and Plan - Assessment and Plan (Free Text) Plan: 1.) 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 Cano --> help appreciated * CT Abd/Pelvis W/W/O contrast (Pancreatic Protocol) - 11mm rounded enhancing mass in tail of the pancreas. Immediately adjacent to the splenic vein and not to the splenic artery. In that the late arterial phase of pancreatic parenchymal enhancement was not imaged adequately during this examination, this examination is limited for evaluation of this pancreatic tail mass. A repeat examination utilizing pancreatic protocol is advised. Fatty infiltration of the liver. No other significant abnormality is identified. * CA-19-9: <1.4 * f/u CT abd/ pelvis w/w/o contrast (pancreatic protocol) Surgery Consult: Dr. Reis --> help appreciated * R. Fem TLC removed on 07/28 and midline removed 07/29 - it was not able to be used/poor venous access IR Consult: Dr. Ribeiro --> help appreciated * PICC line placed 07/29 in right basilic vein 2.) Intractable Nausea/Vomiting * Reglan 10 mg IVP q8h PRN * Currently NPO for pancreatic protocol CT * Will continue soft dysphagia diet, Advance as tolerated 3.) Hypokalemia * Resolved * Monitor 4.) Elevated LFTs * Monitor 5.) Leukocytosis (L. Shift) * resolved, 6.8 on 07/28 * Monitor 6.) Constipation * Colace 100mg BID 7.) History of IDDM2 * Hold Metformin for CT, restart on 07/30/17 * started home med Glargine 20 u daily (on 07/28) * ISS Medium * Accuchecks * A1C: 8.4 * Urine Microalbumin - 140.4 * Lipid Panel * TG 148 * Cholesterol = 144 * LDL = 88 * HDL = 30 8.) History of HTN * Lisinopril 10mg PO daily * Continue home medication Metoprolol Succinate 50 mg daily 9.) History of GERD * Pepcid 20mg BID 10.) PPX * Pepcid as above * Heparin 5000 SC Q12 * PT/OT * Ambulate <Loc Brooks - Last Filed: 07/29/17 15:51> Objective - Vital Signs/Intake and Output Vital Signs (last 24 hours): Temp Pulse Resp BP Pulse Ox 98.2 F 77 20 127/73 97 07/29/17 09:16 07/29/17 09:16 07/29/17 09:16 07/29/17 09:16 07/29/17 09:16 Intake and Output: 07/29/17 07/29/17 06:59 18:59 Intake Total 400 1400 Balance 400 1400 - Medications Medications: Current Medications Docusate Sodium (Colace) 100 mg PO BID [facility] Last Admin: 07/29/17 10:12 Dose: 100 mg Famotidine (Pepcid) 20 mg PO BID [facility] Last Admin: 07/29/17 10:12 Dose: 20 mg Heparin Sodium (Porcine) (Heparin) 5,000 units SC Q12 [facility] Last Admin: 07/29/17 10:13 Dose: 5,000 units Ibuprofen (Motrin Tab) 400 mg PO Q6 PRN PRN Reason: Fever >100.4 F Insulin Aspart (Novolog) 5 unit SC TIDAC [facility] Last Admin: 07/29/17 11:42 Dose: 5 unit Insulin Aspart (Novolog) 0 unit SC ACHS [facility] PRN Reason: Protocol Last Admin: 07/29/17 11:43 Dose: 4 unit Insulin Glargine (Lantus) 20 unit SC DAILY [facility] Last Admin: 07/29/17 10:11 Dose: Not Given Lisinopril (Zestril) 10 mg PO DAILY [facility] Last Admin: 07/29/17 10:11 Dose: 10 mg Metoclopramide HCl (Reglan) 10 mg IVP Q8H PRN PRN Reason: Nausea/Vomiting Metoprolol Succinate (Toprol Xl) 50 mg PO DAILY [facility] Last Admin: 07/29/17 10:12 Dose: 50 mg Potassium Chloride (K-Dur 20 Meq Er Tab) 20 meq PO DAILY [facility] Last Admin: 07/29/17 10:12 Dose: 20 meq Potassium Phos/Sodium Phos (Neutra-Phos) 1 pkt PO TIDCC [facility] Last Admin: 07/29/17 11:42 Dose: 1 pkt Sucralfate (Carafate Tab) 1 gm PO Q12 [facility] Last Admin: 07/29/17 10:12 Dose: 1 gm - Labs Labs: 07/29/17 08:24 07/29/17 08:24 Attending/Attestation - Attestation I have personally seen and examined this patient.: Yes I have fully participated in the care of the patient.: Yes I have reviewed all pertinent clinical information, including history, physical exam and plan: Yes Notes (Text): 07/29/17 15:50 Patient was seen and examined at bedside with the resident Patient is for PICC line today and then CT scan of the abdomen with pancreatic protocol Follow-up the results of the CT scan Follow-up recommendations of GI after the result of the CAT scan is available.. I discussed the plan of care with the resident and agree with the assessment and plan documented.
[2017-07-29] MEDS: (Lantus) Insulin Glargine, Recombinant SC SCH (10:11)
[2017-07-29] MEDS: Potassium Chloride 20 mEq ER Tab PO SCH (10:12)
[2017-07-29] MEDS: Metoprolol Succinate 50 mg XL Tab PO SCH (10:12)
[2017-07-29] MEDS ORDERED: Iodixanol 320 MG/ML 100 ML BOTTLE IV ONE (11:35)
[2017-07-29] MEDS: (Novolog) Insulin Aspart, Recombinant 100 u/ml 10 ml vial SC SCH ×5 (11:42→22:12)
--- NOTE | 2017-07-29 12:48 | PCM.SURG1 ---
Surgeon's Initial Post Op Note - Surgeon's Notes Surgeon: Jose French Sustainability Specialist: NONE Type of Anesthesia: Local Pre-Operative Diagnosis: Poor venous access Operative Findings: Midline in basilic vein. Post-Operative Diagnosis: Poor venous access Operation Performed: SIngle lumen placement right basilic vein, 33 cm. Tip in SVC. Specimen/Specimens Removed: None Estimated Blood Loss: EBL {In ML}: 1 Blood Products Given: N/A Drains Used: No Drains Post-Op Condition: Fair Date of Surgery/Procedure: 07/29/17 Time of Surgery/Procedure: 12:45
--- NOTE | 2017-07-29 14:33 | RAD ---
PROCEDURE: Date of procedure: 07/29/2017 Procedure: 1. Placement of a right arm PICC with ultrasound and fluoroscopic guidance, CPT 34403 2. PICC tip confirmation with spot radiograph and is in the superior vena cava Medications: 1 percent lidocaine Total Fluoro time: 2.7conds Radiation: 1.1 EBL: 2 cc HISTORY: Poor venous access TECHNIQUE: Following informed consent and procedure time-out, the patient was placed supine on the interventional table and the right arm prepped and draped in the usual sterile fashion. Ultrasound showed a patent and compressible right basilic vein. After the skin was anesthetized with lidocaine, the basilic vein was accessed with micro micropuncture technique using ultrasound guidance. A guidewire was then advanced under fluoroscopic guidance into the superior vena cava. An image documenting ultrasound guidance for vascular access was permanently saved. The length of the single-lumen 4 [place] PICC was trimmed to 33 centimeters and advanced through a peel-away sheath. The PICC was position with tip of PICC confirm a spot radiograph the superior vena cava. The PICC was secured to the patient's skin. The PICC was flushed. A biopatch and sterile dressing was applied. IMPRESSION: Placement of a single-lumen 4 [place] PICC trimmed to 33 centimeters via right basilic vein. The tip of the PICC is confirmed with spot radiograph and is in the superior vena cava.
--- NOTE | 2017-07-29 15:49 | CT ---
PROCEDURE: CT Abdomen and Pelvis with contrast HISTORY: mass on tail of pancreas COMPARISON: 10/09/2014 CT scan. TECHNIQUE: Contrast dose: 100 cc of Omnipaque 350 Radiation dose: Total exam DLP = 2356 mGy-cm. This CT exam was performed using one or more of the following dose reduction techniques: Automated exposure control, adjustment of the mA and/or kV according to patient size, and/or use of iterative reconstruction technique. FINDINGS: LOWER THORAX: Unremarkable. Small hiatal hernia. LIVER: Unremarkable. No gross lesion or ductal dilatation. GALLBLADDER AND BILE DUCTS: Unremarkable. PANCREAS: 1.1 centimeter enhancing lesion in the pancreatic tail, unchanged compared the prior examination. SPLEEN: Unremarkable. ADRENALS: Unremarkable. No mass. KIDNEYS AND URETERS: Unremarkable. No hydronephrosis. No solid mass. VASCULATURE: Unremarkable. No aortic aneurysm. BOWEL: Unremarkable. No obstruction. No gross mural thickening. APPENDIX: Normal appendix. PERITONEUM: Unremarkable. No free fluid. No free air. LYMPH NODES: Unremarkable. No enlarged lymph nodes. BONES: No acute fracture. OTHER FINDINGS: None. IMPRESSION: Stable 1 centimeter enhancing nodule in the pancreatic tail. A splenic artery aneurysm is considered. This could also represent an islet cell tumor. Given its stability this is probably benign.
--- NOTE | 2017-07-30 06:30 | CP.PCM.PN ---
<Anuja Brock - Last Filed: 07/30/17 17:49> Subjective - Date & Time of Evaluation Date of Evaluation: 07/30/17 Time of Evaluation: 07:00 - Subjective Subjective: Medicine Progress Note: Patient was seen and examined at bedside in the AM. Patient states she is feeling a lot better this morning. Patient states her nausea is starting. She has been eating small portions but denies vomiting. Patient states she continues to have constipation and has not had a bowel movement but continues to pass gas. Patient denies abdominal pain. Patient expresses that she is anxious for her CT results. Objective - Vital Signs/Intake and Output Vital Signs (last 24 hours): Temp Pulse Resp BP Pulse Ox 98.2 F 82 20 135/78 97 07/29/17 23:27 07/29/17 23:27 07/29/17 23:27 07/29/17 23:27 07/29/17 23:27 Intake and Output: 07/29/17 07/30/17 18:59 06:59 Intake Total 1400 300 Balance 1400 300 - Medications Medications: Current Medications Docusate Sodium (Colace) 100 mg PO BID [facility] Last Admin: 07/29/17 18:02 Dose: 100 mg Famotidine (Pepcid) 20 mg PO BID [facility] Last Admin: 07/29/17 18:02 Dose: 20 mg Heparin Sodium (Porcine) (Heparin) 5,000 units SC Q12 [facility] Last Admin: 07/29/17 22:06 Dose: 5,000 units Ibuprofen (Motrin Tab) 400 mg PO Q6 PRN PRN Reason: Fever >100.4 F Insulin Aspart (Novolog) 5 unit SC TIDAC [facility] Last Admin: 07/29/17 18:06 Dose: 5 unit Insulin Aspart (Novolog) 0 unit SC ACHS [facility] PRN Reason: Protocol Last Admin: 07/29/17 22:12 Dose: 2 unit Insulin Glargine (Lantus) 20 unit SC DAILY [facility] Last Admin: 07/29/17 10:11 Dose: Not Given Lisinopril (Zestril) 10 mg PO DAILY [facility] Last Admin: 07/29/17 10:11 Dose: 10 mg Metoclopramide HCl (Reglan) 10 mg IVP Q8H PRN PRN Reason: Nausea/Vomiting Metoprolol Succinate (Toprol Xl) 50 mg PO DAILY [facility] Last Admin: 07/29/17 10:12 Dose: 50 mg Potassium Chloride (K-Dur 20 Meq Er Tab) 20 meq PO DAILY [facility] Last Admin: 07/29/17 10:12 Dose: 20 meq Potassium Phos/Sodium Phos (Neutra-Phos) 1 pkt PO TIDCC [facility] Last Admin: 07/29/17 18:05 Dose: 1 pkt Sucralfate (Carafate Tab) 1 gm PO Q12 [facility] Last Admin: 07/29/17 22:10 Dose: 1 gm - Labs Labs: 07/29/17 08:24 07/29/17 08:24 - Constitutional Appears: No Acute Distress - Head Exam Head Exam: ATRAUMATIC, NORMAL INSPECTION, NORMOCEPHALIC - Eye Exam Eye Exam: EOMI, Normal appearance, PERRL Pupil Exam: NORMAL ACCOMODATION - ENT Exam ENT Exam: Mucous Membranes Moist - Respiratory Exam Respiratory Exam: Clear to Ausculation Bilateral, NORMAL BREATHING PATTERN - Cardiovascular Exam Cardiovascular Exam: REGULAR RHYTHM, +S1, +S2 - GI/Abdominal Exam GI & Abdominal Exam: Soft, Normal Bowel Sounds. absent: Tenderness - Extremities Exam Extremities Exam: Normal Inspection - Neurological Exam Neurological Exam: Alert, Awake, Oriented x3 - Psychiatric Exam Psychiatric exam: Anxious - Skin Skin Exam: Normal Color, Warm Assessment and Plan - Assessment and Plan (Free Text) Plan: 1.) Pancreatic Tail Mass GI Consult: Dr. Cano --> help appreciated * CT Abd/Pelvis W/W/O contrast (Pancreatic Protocol) - 11mm rounded enhancing mass in tail of the pancreas. Immediately adjacent to the splenic vein and not to the splenic artery. In that the late arterial phase of pancreatic parenchymal enhancement was not imaged adequately during this examination, this examination is limited for evaluation of this pancreatic tail mass. A repeat examination utilizing pancreatic protocol is advised. Fatty infiltration of the liver. No other significant abnormality is identified. * CA-19-9: <1.4 * CT abd/ pelvis w/w/o contrast (pancreatic protocol) (912): Stable 1cm enhancing nodule in the pancreatic tail. A splenic artery aneurysm is considered. This could also represent an islet cell tumor. Given its stability this is probably benign. * Discussed with Dr. Silverman: previous CT of the abdomen in 2013 was reread by radiology and showed a enhancing nodule in the pancreatic tail and so it has been stable since 2014. His recommendation is to follow up with CT in 1 year. Surgery Consult: Dr. Reis --> help appreciated * R. Fem TLC removed on 07/28 and midline removed 07/29 - it was not able to be used/poor venous access IR Consult: Dr. Ribeiro --> help appreciated * PICC line placed 07/29 in right basilic vein 2.) Intractable Nausea possibly secondary to gastroparesis * Reglan 10 mg IVP q8h PRN * Currently NPO for pancreatic protocol CT * Will continue soft dysphagia diet, Advance as tolerated * Discussed with Dr. Silverman * f/u Gastric emptying scan 07/31 - NPO after midnight 3.) Hypokalemia * Resolved * Monitor 4.) Elevated LFTs * Monitor 5.) Leukocytosis (L. Shift) * resolved, 6.8 on 07/28 * Monitor 6.) Constipation * MiraLax 7.) History of IDDM2 * Hold Metformin for CT, restart on 07/30/17 * started home med Glargine 20 u daily (on 07/28) * ISS Medium * Accuchecks * A1C: 8.4 * Urine Microalbumin - 140.4 * Lipid Panel * TG 148 * Cholesterol = 144 * LDL = 88 * HDL = 30 8.) History of HTN * Lisinopril 10mg PO daily * Continue home medication Metoprolol Succinate 50 mg daily 9.) History of GERD * Pepcid 20mg BID 10.) PPX * Pepcid as above * Heparin 5000 SC Q12 * PT/OT * Ambulate Case discussed with Dr. Cecilia Brock PGY-1 <Loc Brooks M - Last Filed: 07/30/17 18:43> Objective - Vital Signs/Intake and Output Vital Signs (last 24 hours): Temp Pulse Resp BP Pulse Ox 98.4 F 83 20 133/76 96 07/30/17 07:49 07/30/17 07:49 07/30/17 07:49 07/30/17 07:49 07/30/17 07:49 Intake and Output: 07/30/17 07/30/17 06:59 18:59 Intake Total 300 430 Balance 300 430 - Medications Medications: Current Medications Famotidine (Pepcid) 20 mg PO BID [facility] Last Admin: 07/30/17 17:36 Dose: 20 mg Heparin Sodium (Porcine) (Heparin) 5,000 units SC Q12 [facility] Last Admin: 07/30/17 10:57 Dose: 5,000 units Ibuprofen (Motrin Tab) 400 mg PO Q6 PRN PRN Reason: Fever >100.4 F Insulin Aspart (Novolog) 0 unit SC ACHS [facility] PRN Reason: Protocol Last Admin: 07/30/17 17:37 Dose: 2 unit Insulin Aspart (Novolog) 10 unit SC TIDAC [facility] Last Admin: 07/30/17 17:37 Dose: 10 unit Insulin Glargine (Lantus) 20 unit SC HS [facility] Lisinopril (Zestril) 10 mg PO DAILY [facility] Last Admin: 07/30/17 10:57 Dose: 10 mg Metoclopramide HCl (Reglan) 10 mg IVP Q8H PRN PRN Reason: Nausea/Vomiting Last Admin: 07/30/17 17:41 Dose: 10 mg Metoprolol Succinate (Toprol Xl) 50 mg PO DAILY [facility] Last Admin: 07/30/17 11:01 Dose: 50 mg Potassium Chloride (K-Dur 20 Meq Er Tab) 20 meq PO DAILY [facility] Last Admin: 07/30/17 10:57 Dose: 20 meq Potassium Phos/Sodium Phos (Neutra-Phos) 1 pkt PO TIDCC [facility] Last Admin: 07/30/17 17:36 Dose: 1 pkt Sucralfate (Carafate Tab) 1 gm PO Q12 [facility] Last Admin: 07/30/17 10:58 Dose: 1 gm - Labs Labs: 07/30/17 07:15 07/30/17 07:15 Attending/Attestation - Attestation I have personally seen and examined this patient.: Yes I have fully participated in the care of the patient.: Yes I have reviewed all pertinent clinical information, including history, physical exam and plan: Yes Notes (Text): 07/30/17 18:40 Patient was seen and examined at bedside with the resident today Abdominal pain has resolved. Patient still complains of for nausea CT scan report reviewed and it was discussed by Dr. Gonzáles with the radiologist Patient has an old lesion in the pancreatic tail which is unchanged. Therefore the lesion is most likely benign on the tail of the pancreas No further intervention suggested at this time Patient will need gastric emptying study to rule out gastroparesis. I discussed the plan of care with the patient I discussed the plan of care with the resident and agree with the assessment and plan documented
[2017-07-30 07:20] LABS: BASO # 0.1 K/uL (0.0-0.2); BASO % 0.6 % (0.0-2.0); EOS # 0.1 K/uL (0.0-0.7); EOS % 1.5 % (0.0-4.0); HEMATOCRIT 42.4 % (34.0-47.0); LYMPH # 2.4 K/uL (1.0-4.3); LYMPH % 25.3 % (20.0-40.0); MEAN CELL VOLUME 89.6 fL (81.0-99.0); MEAN CORPUSCULAR HEMOGLOBIN 29.9 pg (27.0-31.0); MEAN CORPUSCULAR HGB CONC 33.4 g/dL (33.0-37.0); MEAN PLATELET VOLUME 10.2 fL (7.2-11.7); MONO # 0.5 K/uL (0.0-0.8); MONO % 5.8 % (0.0-10.0); WHITE BLOOD COUNT 9.4 K/uL (4.8-10.8)
[2017-07-30] MEDS ORDERED: POLYETHYLENE GLYCOL 3350 17 GM/Dose PACKET PO ONE (07:38)
[2017-07-30 07:54] LABS: CHLORIDE 99 mmol/L (98-107)
[2017-07-30 07:55] LABS: POTASSIUM 4.6 mmol/L (3.6-5.2); SODIUM 134 mmol/L (132-148)
[2017-07-30 07:57] LABS: ALB/GLOB RATIO 1.3 (1.0-2.1); AST/SGOT 14 U/L (14-36); BILIRUBIN,TOTAL 0.4 mg/dL (0.2-1.3); CARBON DIOXIDE 25 mmol/L (22-30); GFR AFRICAN-AMERICAN > 60; TOTAL PROTEIN 6.5 g/dL (6.3-8.3)
[2017-07-30 07:58] LABS: ALKALINE PHOSPHATASE 91 U/L (38-126); ALT/SGPT 55 U/L (9-52); BLOOD UREA NITROGEN 13 mg/dL (7-17); GLUCOSE,RANDOM 316 mg/dL (65-105); MAGNESIUM 1.7 mg/dL (1.6-2.3)
[2017-07-30] MEDS: (Novolog) Insulin Aspart, Recombinant 100 u/ml 10 ml vial SC SCH ×7 (08:18→21:40)
[2017-07-30] MEDS: Potassium & Sodium Phosphate PO SCH ×3 (08:19→17:36)
[2017-07-30] MEDS: Potassium Chloride 20 mEq ER Tab PO SCH (10:57)
[2017-07-30] MEDS: Metoprolol Succinate 50 mg XL Tab PO SCH (11:01)
--- NOTE | 2017-07-30 11:24 | CP.PCM.PN ---
Subjective - Date & Time of Evaluation Date of Evaluation: 07/30/17 Time of Evaluation: 11:21 - Subjective Subjective: cc: vomiting Nausea and vomiting with meals. No abdominal pain. No BMs. relieved by Reglan. Glucoses running high. Discussed with medical Attending. Will evaluate via gastric emptying scan. Pancreatic tail lesion has been present since 2013, same size, reviewed with radiologist dr Crawford. The lesion may be either a splenic artery aneurysm or benign PET. Would recheck CT in 1 year. Consider EUS. Objective - Vital Signs/Intake and Output Vital Signs (last 24 hours): Temp Pulse Resp BP Pulse Ox 98.4 F 83 20 133/76 96 07/30/17 07:49 07/30/17 07:49 07/30/17 07:49 07/30/17 07:49 07/30/17 07:49 Intake and Output: 07/30/17 07/30/17 06:59 18:59 Intake Total 300 180 Balance 300 180 - Medications Medications: Current Medications Famotidine (Pepcid) 20 mg PO BID [facility] Last Admin: 07/30/17 10:57 Dose: 20 mg Heparin Sodium (Porcine) (Heparin) 5,000 units SC Q12 [facility] Last Admin: 07/30/17 10:57 Dose: 5,000 units Ibuprofen (Motrin Tab) 400 mg PO Q6 PRN PRN Reason: Fever >100.4 F Insulin Aspart (Novolog) 0 unit SC ACHS [facility] PRN Reason: Protocol Insulin Aspart (Novolog) 10 unit SC TIDAC [facility] Insulin Glargine (Lantus) 20 unit SC HS [facility] Lisinopril (Zestril) 10 mg PO DAILY [facility] Last Admin: 07/30/17 10:57 Dose: 10 mg Metoclopramide HCl (Reglan) 10 mg IVP Q8H PRN PRN Reason: Nausea/Vomiting Last Admin: 07/30/17 08:17 Dose: 10 mg Metoprolol Succinate (Toprol Xl) 50 mg PO DAILY [facility] Last Admin: 07/30/17 11:01 Dose: 50 mg Potassium Chloride (K-Dur 20 Meq Er Tab) 20 meq PO DAILY [facility] Last Admin: 07/30/17 10:57 Dose: 20 meq Potassium Phos/Sodium Phos (Neutra-Phos) 1 pkt PO TIDCC [facility] Last Admin: 07/30/17 08:19 Dose: 1 pkt Sucralfate (Carafate Tab) 1 gm PO Q12 [facility] Last Admin: 07/30/17 10:58 Dose: 1 gm - Labs Labs: 07/30/17 07:15 07/30/17 07:15 - Constitutional Appears: Well, No Acute Distress, Agitated - Head Exam Head Exam: NORMOCEPHALIC - Eye Exam Eye Exam: absent: Scleral icterus - Respiratory Exam Respiratory Exam: Clear to Ausculation Bilateral - Cardiovascular Exam Cardiovascular Exam: REGULAR RHYTHM - GI/Abdominal Exam GI & Abdominal Exam: Soft. absent: Tenderness, Mass Assessment and Plan (1) Mass of pancreas Assessment & Plan: see above. Appears benign, and stable since 2014. rec: follow up CT 1 year Status: Acute (2) Diabetes Assessment & Plan: Poorly controlled Discussed with medical attending Status: Acute (3) Vomiting Assessment & Plan: Possibly gastroparesis Rec: Nuclear scan. Small meals, low fiber. Reglan as needed Status: Acute
[2017-07-30] MEDS ORDERED: (Lantus) Insulin Glargine, Recombinant SC SCH (22:00)
[2017-07-31 07:18] LABS: BASO % 0.5 % (0.0-2.0); EOS # 0.1 K/uL (0.0-0.7); EOS % 1.6 % (0.0-4.0); HEMATOCRIT 36.6 % (34.0-47.0); LYMPH # 2.3 K/uL (1.0-4.3); LYMPH % 26.3 % (20.0-40.0); MEAN CELL VOLUME 88.6 fL (81.0-99.0); MEAN CORPUSCULAR HEMOGLOBIN 30.7 pg (27.0-31.0); MEAN CORPUSCULAR HGB CONC 34.7 g/dL (33.0-37.0); MEAN PLATELET VOLUME 10.5 fL (7.2-11.7); MONO # 0.6 K/uL (0.0-0.8); MONO % 6.8 % (0.0-10.0); RED CELL DISTRIBUTION WIDTH 13.3 % (11.5-14.5); WHITE BLOOD COUNT 8.6 K/uL (4.8-10.8)
[2017-07-31 07:28] LABS: ALB/GLOB RATIO 1.3 (1.0-2.1); ALKALINE PHOSPHATASE 78 U/L (38-126); ALT/SGPT 42 U/L (9-52); AST/SGOT 9 U/L (14-36); BILIRUBIN,TOTAL 0.3 mg/dL (0.2-1.3); BLOOD UREA NITROGEN 12 mg/dL (7-17); CALCIUM 8.7 mg/dl (8.6-10.4); CARBON DIOXIDE 25 mmol/L (22-30); CHLORIDE 96 mmol/L (98-107); GFR AFRICAN-AMERICAN > 60; GLUCOSE,RANDOM 306 mg/dL (65-105); MAGNESIUM 1.7 mg/dL (1.6-2.3); PHOSPHOROUS 3.4 mg/dL (2.5-4.5); POTASSIUM 4.4 mmol/L (3.6-5.2); SODIUM 133 mmol/L (132-148); TOTAL PROTEIN 5.4 g/dL (6.3-8.3)
[2017-07-31] MEDS: Potassium & Sodium Phosphate PO SCH ×3 (08:00→17:44)
[2017-07-31] MEDS: (Novolog) Insulin Aspart, Recombinant 100 u/ml 10 ml vial SC SCH ×6 (08:20→17:10)
--- NOTE | 2017-07-31 09:27 | CP.PCM.PN ---
Objective - Vital Signs/Intake and Output Vital Signs (last 24 hours): Temp Pulse Resp BP Pulse Ox 98.1 F 85 20 111/73 97 07/31/17 07:44 07/31/17 07:44 07/31/17 07:44 07/31/17 07:44 07/31/17 07:44 Intake and Output: 07/31/17 07/31/17 06:59 18:59 Intake Total 600 Balance 600 - Medications Medications: Current Medications Famotidine (Pepcid) 20 mg PO BID [facility] Last Admin: 07/30/17 17:36 Dose: 20 mg Heparin Sodium (Porcine) (Heparin) 5,000 units SC Q12 [facility] Last Admin: 07/30/17 21:38 Dose: 5,000 units Ibuprofen (Motrin Tab) 400 mg PO Q6 PRN PRN Reason: Fever >100.4 F Insulin Aspart (Novolog) 0 unit SC ACHS [facility] PRN Reason: Protocol Last Admin: 07/31/17 08:20 Dose: Not Given Insulin Aspart (Novolog) 10 unit SC TIDAC [facility] Last Admin: 07/31/17 08:20 Dose: Not Given Insulin Glargine (Lantus) 20 unit SC HS [facility] Last Admin: 07/30/17 21:37 Dose: 20 units Lisinopril (Zestril) 10 mg PO DAILY [facility] Last Admin: 07/30/17 10:57 Dose: 10 mg Metoclopramide HCl (Reglan) 10 mg IVP Q8H PRN PRN Reason: Nausea/Vomiting Last Admin: 07/30/17 17:41 Dose: 10 mg Metoprolol Succinate (Toprol Xl) 50 mg PO DAILY [facility] Last Admin: 07/30/17 11:01 Dose: 50 mg Potassium Chloride (K-Dur 20 Meq Er Tab) 20 meq PO DAILY [facility] Last Admin: 07/30/17 10:57 Dose: 20 meq Potassium Phos/Sodium Phos (Neutra-Phos) 1 pkt PO TIDCC [facility] Last Admin: 07/31/17 08:00 Dose: Not Given Sucralfate (Carafate Tab) 1 gm PO Q12 [facility] Last Admin: 07/30/17 21:39 Dose: 1 gm - Labs Labs: 07/31/17 07:05 07/31/17 07:05
[2017-07-31] MEDS: Potassium Chloride 20 mEq ER Tab PO SCH ×2 (11:04→13:57)
[2017-07-31] MEDS: Metoprolol Succinate 50 mg XL Tab PO SCH ×2 (11:04→13:57)
--- NOTE | 2017-07-31 15:10 | NM ---
PROCEDURE: Gastric emptying study HISTORY: Diabetic with nausea and vomiting COMPARISON: None available. TECHNIQUE: 1 mCi technetium in a room soft palate administered orally admixed with solid and semi solid material per institutional protocol. FINDINGS: Commencement of examination: Percent emptied, solid 0% Percent residual, solid 100 % 1 hr: Percent emptied, solid 25 % Percent residual, solid 75 % 2 hr: Percent emptied, solid 52 % Percent residual, solid 48% 4 hr: Percent emptied, solid 68 % Percent residual, solid 32% IMPRESSION: Delayed gastric emptying Normal range percent empty 1 hr 0-63 % 2 hr 40-70 % 4 hr 90-100 % Normal range percent remaining 1 hr 37-90% 2 hr 30-60 % 4 hr 0-10 %
--- NOTE | 2017-07-31 17:13 | CP.PCM.DIS ---
Provider - Provider Date of Admission: 07/28/17 15:54 Attending physician: Loc Brooks MD Time Spent in preparation of Discharge (in minutes): 40 Hospital Course - Lab Results Lab Results: Most Recent Lab Values WBC 8.6 K/uL (4.8-10.8) 07/31/17 07:05 RBC 4.13 Mil/uL (3.80-5.20) 07/31/17 07:05 Hgb 12.7 g/dL (11.0-16.0) 07/31/17 07:05 Hct 36.6 % (34.0-47.0) 07/31/17 07:05 MCV 88.6 fL (81.0-99.0) 07/31/17 07:05 MCH 30.7 pg (27.0-31.0) 07/31/17 07:05 MCHC 34.7 g/dL (33.0-37.0) 07/31/17 07:05 RDW 13.3 % (11.5-14.5) 07/31/17 07:05 Plt Count 200 K/uL (130-400) 07/31/17 07:05 MPV 10.5 fL (7.2-11.7) 07/31/17 07:05 Neut % (Auto) 64.8 % (50.0-75.0) 07/31/17 07:05 Lymph % (Auto) 26.3 % (20.0-40.0) 07/31/17 07:05 [place] % (Auto) 6.8 % (0.0-10.0) 07/31/17 07:05 Eos % (Auto) 1.6 % (0.0-4.0) 07/31/17 07:05 Baso % (Auto) 0.5 % (0.0-2.0) 07/31/17 07:05 Neut # 5.6 K/uL (1.8-7.0) 07/31/17 07:05 Lymph # 2.3 K/uL (1.0-4.3) 07/31/17 07:05 [place] # 0.6 K/uL (0.0-0.8) 07/31/17 07:05 Eos # 0.1 K/uL (0.0-0.7) 07/31/17 07:05 Baso # 0.0 K/uL (0.0-0.2) 07/31/17 07:05 Sodium 133 mmol/L (132-148) 07/31/17 07:05 Potassium 4.4 mmol/L (3.6-5.2) 07/31/17 07:05 Chloride 96 mmol/L (98-107) L 07/31/17 07:05 Carbon Dioxide 25 mmol/L (22-30) 07/31/17 07:05 Anion Gap 16 (10-20) 07/31/17 07:05 BUN 12 mg/dL (7-17) 07/31/17 07:05 Creatinine 0.6 MG/DL (0.7-1.2) L 07/31/17 07:05 Est GFR ( Amer) > 60 07/31/17 07:05 Est GFR (Non-Af Amer) > 60 07/31/17 07:05 POC Glucose (mg/dL) 235 mg/dL (65-110) H 07/31/17 16:49 Random Glucose 306 mg/dL (65-105) H 07/31/17 07:05 Hemoglobin A1c 8.4 % (4.2-6.5) H D 07/26/17 08:18 Calcium 8.7 mg/dl (8.6-10.4) 07/31/17 07:05 Phosphorus 3.4 mg/dL (2.5-4.5) 07/31/17 07:05 Magnesium 1.7 mg/dL (1.6-2.3) 07/31/17 07:05 Total Bilirubin 0.3 mg/dL (0.2-1.3) 07/31/17 07:05 AST 9 U/L (14-36) L D 07/31/17 07:05 ALT 42 U/L (9-52) 07/31/17 07:05 Alkaline Phosphatase 78 U/L (38-126) 07/31/17 07:05 Total Creatine Kinase 67 U/L (30-135) 07/25/17 09:41 CK-MB (Mass) 0.55 ng/mL (0.0-3.38) 07/25/17 09:41 Troponin I 0.0130 ng/mL (0.00-0.120) 07/25/17 09:41 Total Protein 5.4 g/dL (6.3-8.3) L 07/31/17 07:05 Albumin 3.1 g/dL (3.5-5.0) L 07/31/17 07:05 Globulin 2.4 gm/dL (2.2-3.9) 07/31/17 07:05 Albumin/Globulin Ratio 1.3 (1.0-2.1) 07/31/17 07:05 Triglycerides 148 mg/dL (0-149) 07/26/17 08:18 Cholesterol 144 mg/dL (0-199) 07/26/17 08:18 LDL Cholesterol Direct 88 mg/dL (0-129) 07/26/17 08:18 HDL Cholesterol 30 mg/dL (30-70) 07/26/17 08:18 Lipase 28 U/L (23-300) 07/25/17 09:41 CA 19-9 Antigen < 1.4 U/mL (0-37) 07/28/17 07:04 Urine Color Yellow (YELLOW) 07/25/17 10:38 Urine Clarity Hazy (Clear) 07/25/17 10:38 Urine pH 5.0 (5.0-8.0) 07/25/17 10:38 Ur Specific [place] 1.021 (1.003-1.030) 07/25/17 10:38 Urine Protein 2+ mg/dL (NEGATIVE) H 07/25/17 10:38 Urine Glucose (UA) 3+ mg/dL (Normal) H 07/25/17 10:38 Urine Ketones 2+ mg/dL (NEGATIVE) H 07/25/17 10:38 Urine Blood 1+ (NEGATIVE) H 07/25/17 10:38 Urine Nitrate Negative (NEGATIVE) 07/25/17 10:38 Urine Bilirubin Negative (NEGATIVE) 07/25/17 10:38 Urine Urobilinogen Normal mg/dL (0.2-1.0) 07/25/17 10:38 Ur Leukocyte Esterase Neg [place]/uL (Negative) 07/25/17 10:38 Urine WBC (Auto) 6 /hpf (0-5) H 07/25/17 10:38 Urine RBC (Auto) 4 /hpf (0-3) H 07/25/17 10:38 Ur Squamous Epith Cells 4 /hpf (0-5) 07/25/17 10:38 Urine Bacteria Rare (<OCC) 07/25/17 10:38 Hyaline Casts 6-10 /lpf (0-2) H 07/25/17 10:38 Urine Microalbumin 140.4 mg/L (0.0-16.6) H 07/27/17 08:30 Urine Opiates Screen Positive (NEGATIVE) 07/25/17 10:38 Urine Methadone Screen Negative (NEGATIVE) 07/25/17 10:38 Ur Barbiturates Screen Negative (NEGATIVE) 07/25/17 10:38 Ur Phencyclidine Scrn Negative (NEGATIVE) 07/25/17 10:38 Ur Amphetamines Screen Negative (NEGATIVE) 07/25/17 10:38 U Benzodiazepines Scrn Negative (NEGATIVE) 07/25/17 10:38 U Oth Cocaine Metabols Negative (NEGATIVE) 07/25/17 10:38 U Cannabinoids Screen Negative (NEGATIVE) 07/25/17 10:38 Alcohol, Quantitative < 10 mg/dl (0-10) 07/25/17 09:41 - Hospital Course Hospital Course: CC:"I thought I had a stomach virus for the past 4 days" HPI: Patient is a 56 year old female with a PMH of alcoholism, drug addiction, DM, GERD, and HTN presenting with 4 days of vomiting. Patient state the issue started four days ago. She thought it was a virus at first but today she "had enough" and came to the ED. Patient said she has not moved from bed because the pain is so severe, and she can not tolerate a diet and has not eaten much since Friday. Patient denies any changes to lifestyle or diet when the issues began. She states that the vomit is white and foam, denies blood. The pain feels lie her belly is rumbling and rated it a 8/10. The pain is localized to her epigastric region with slight pain over her right lower ribs. She experienced a similar event 2 years ago and was brought to the hospital where she was placed on a liquid diet and got better after 3 days. Eating and drinking make it worse. She said she tried taking pepto bismol which helped slightly but she threw up the medication. Patient is also complaining of constipation, last BM was 5 days ago. ROS: * General: (+) fever/diaphoresis/weakness/changes in diet-cant eat. (-) chills/ recent travel/recent sickness/sick contacts * Cardio: (+) CP/Palp * Resp:(+) SOB. (-)cough * GI:(+) Abd pain/N/V/C * :(-)dysuria, freq * MSK:(+)LE sensitivity/swelling * Derm: (-)rash * Neuro:(+) dizzy. (-)LH PMD= [place] Allergies= NDKA PMH * DM * HTN * Pinch nerve in back * Left hip arthritis * GERD PSH * Breast biopsy-no path Family * Mom=DM * Dad=Pancreatic CA, Colon CA * Sister= Breast CA * Brother= Prostate CA Social Hx * Tobacco= Smokes one pack every two days for 30 years * Alcohol= Sober since November. Use to drink 12 24oz cans of beer daily for "years" * Drugs= Sober since November. History of heroine/crack use * Living= Lives with sister and [id number] * Job= unemployed Code Status: DNR/DNI Hospital Course: GI physician Dr. Cano was consulted. Insulin was started for controlling patient's diabetes. Lisinopril 10mg was started for history of hypertension; Pepcid 20mg BID for history of GERD. History of Diabetes lab work was followed up: A1C 8.4; Lipid Panel: TG 148; Cholesterol = 144; LDL = 88; HDL = 30 CT Abd/Pelvis W/W/O contrast (Pancreatic Protocol) - 11mm rounded enhancing mass in tail of the pancreas. Immediately adjacent to the splenic vein and not to the splenic artery. In that the late arterial phase of pancreatic parenchymal enhancement was not imaged adequately during this examination, this examination is limited for evaluation of this pancreatic tail mass. A repeat examination utilizing pancreatic protocol is advised. Fatty infiltration of the liver. No other significant abnormality is identified. * CA-19-9: <1.4 * CT abd/ pelvis w/w/o contrast (pancreatic protocol) (07/29): Stable 1cm enhancing nodule in the pancreatic tail. A splenic artery aneurysm is considered. This could also represent an islet cell tumor. Given its stability this is probably benign. * Discussed with Dr. Silverman: previous CT of the abdomen in 2013 was reread by radiology and showed a enhancing nodule in the pancreatic tail and so it has been stable since 2013. His recommendation is to follow up with CT in 1 year. Gastric emptying study was done 07/31 for intractable nausea and showed delayed gastric emptying. Discussed with Dr. Cano and he believes this is due to patient's poorly controlled diabetes. Per Dr. Cano patient was stable for discharge. Upon discharge discussed with patient the importance of diabetic control patient states she will continue to take her Trulicity once a week and Insulin. Also discussed with the patient the side effects of Reglan which can be Tardative dyskinesia and patient understood. Patient stable for discharge per Dr. Brooks. Patient to continue home medications. Patient to start new medications: 10mg Reglan 1 tablet Q8h as needed for nausea Patient to follow up with primary doctor in 1 week. Patient to return to the emergency room if symptoms return or worsen. This is a brief summary of events. For a complete course, refer to the medical record. Discharge Exam - Head Exam Head Exam: ATRAUMATIC, NORMAL INSPECTION, NORMOCEPHALIC - Eye Exam Eye Exam: EOMI, Normal appearance, PERRL Pupil Exam: NORMAL ACCOMODATION - ENT Exam ENT Exam: Mucous Membranes Moist - Respiratory Exam Respiratory Exam: Clear to PA & Lateral, UNREMARKABLE - Cardiovascular Exam Cardiovascular Exam: REGULAR RHYTHM, RRR, +S1, +S2 - GI/Abdominal Exam GI & Abdominal Exam: Normal Bowel Sounds, Soft. absent: Tenderness - Extremities Exam Extremities exam: normal inspection - Neurological Exam Neurological exam: Alert, Oriented x3 - Psychiatric Exam Psychiatric exam: Normal Affect, Normal Mood - Skin Skin Exam: Normal Color, Warm Discharge Plan - Discharge Medications Prescriptions: Metoclopramide [Reglan] 10 mg IVP Q8H PRN #90 vial PRN Reason: Nausea/Vomiting - Follow Up Plan Condition: STABLE Disposition: HOME/ ROUTINE Instructions: Gastroesophageal Reflux Disease (DC), Acute Abdominal Pain (DC), Acute Abdominal Pain (GEN), Hypertension (DC) Additional Instructions: patient stable for discharge as per order Dr Brooks, patient to continue home medications, patient to start on new meds 10 mg reglan 1 tablet every 8 hrs as needed, patient to followup with primary care Dr in one week, patient to return to emergency if symptoms return or worsen .
[2017-07-31 17:27] VITALS: BP 134/87; PULSE 106; TEMP 98.4; O2SAT 96
[2017-07-31] MEDS ORDERED: POLYETHYLENE GLYCOL 3350 17 GM/Dose PACKET PO SCH (18:00)
== END 2017-07-31 21:10 | disposition home or self-care (01) | DRG 18 ==
LOC: C.ER 09:08 → C.9E 15:54 → C.3T 16:43 → OBSVTOIN 07-28 15:54
PROVIDERS: ADMIT Internal Medicine; ATTEND Internal Medicine
PROC: 02HV33Z Insertion of Infusion Device into Superior Vena Cava, Percutaneous Approach (ICD-10-PCS; principal; 2017-07-27)
PROC: B5181ZA Fluoroscopy of Superior Vena Cava using Low Osmolar Contrast, Guidance (ICD-10-PCS; 2017-07-27)
DX: E11.43 Type 2 diabetes mellitus with diabetic autonomic (poly)neuropathy (principal); E11.65 Type 2 diabetes mellitus with hyperglycemia; I10 Essential (primary) hypertension; E87.6 Hypokalemia; F19.20 Other psychoactive substance dependence, uncomplicated; K31.84 Gastroparesis; K86.89 Other specified diseases of pancreas; D72.829 Elevated white blood cell count, unspecified; K59.00 Constipation, unspecified; K21.9 Gastro-esophageal reflux disease without esophagitis; F17.210 Nicotine dependence, cigarettes, uncomplicated; F10.20 Alcohol dependence, uncomplicated; Z83.3 Family history of diabetes mellitus; Z80.0 Family history of malignant neoplasm of digestive organs; Z79.4 Long term (current) use of insulin; Z80.3 Family history of malignant neoplasm of breast; Z80.42 Family history of malignant neoplasm of prostate

== ENCOUNTER 2017-10-14 06:40 | Day surgery (SDC) | payer OTHER ==
[2017-10-14 07:25] VITALS: TEMP 96.8
[2017-10-14] MEDS ORDERED: Propofol 10 mg/ml Inj (20 ML) ONE (07:50)
[2017-10-14] MEDS ORDERED: Lidocaine Hydrochloride 5 ML INJ ONE (07:50)
[2017-10-14] MEDS ORDERED: Lactated Ringer's 500 ML IV SCH (08:00)
--- NOTE | 2017-10-14 08:15 | CP.SDSHP ---
Same Day Surgery H & P - History Proposed Procedure: EGD Pre-Op Diagnosis: SEE NOTES - Previous Medical/Surgical History Cardiac: Hypertension Endocrine/Metabolic: Diabetes Misc: Other Pain: 4.Moderate Pain Previous Surgical History: ? HX. OF PANC. CA ?? - Allergies Allergies: Allergies No Known Allergies Allergy (Verified 07/25/17 09:19) - Physical Exam General Appearance: N Vital Signs: Vital Signs 10/14/17 07:17 Temperature 96.8 F L Pulse Rate 90 Respiratory 18 Rate Blood Pressure 154/76 H O2 Sat by Pulse 99 Oximetry Mental Status: Alert & Oriented x3 Neuro: WNL Heart: Other Lungs: WNL GI: Other - {Optional Preform as Required} Breast: WNL Abdomen: Other Rectal: Other Integument: WNL : WNL Ortho: WNL ENT: WNL - Impression Pt. Evaluated Today:Candidate for Anesthesia & Procedure: Yes - Date & Time Time: 08:14 Short Stay Discharge - Short Stay Discharge Admitting Diagnosis/Reason for Visit: DYSPEPSIA Disposition: HOME/ ROUTINE
[2017-10-14] MEDS ORDERED: Belladonna-Phenobarbital PO STA (08:22)
[2017-10-14] MEDS ORDERED: Pantoprazole 40 mg EC Tab PO STA (08:22)
[2017-10-14 08:46] VITALS: O2SAT 100
[2017-10-14 09:05] VITALS: BP 150/69; PULSE 88; RESP 18
== END 2017-10-14 09:55 | disposition home or self-care (01) ==
LOC: C.ENDO 06:40
PROVIDERS: ATTEND Specialist
DX: K21.0 Gastro-esophageal reflux disease with esophagitis (principal); K29.50 Unspecified chronic gastritis without bleeding; K44.9 Diaphragmatic hernia without obstruction or gangrene; I10 Essential (primary) hypertension; E11.9 Type 2 diabetes mellitus without complications
CPT/HCPCS: 43239; 82948; 88305; J2704; J2765; J7120

== ENCOUNTER 2017-11-22 11:45 | Emergency (ER) | payer OTHER ==
[2017-11-22 11:46] VITALS: BMI 41.7
[2017-11-22 11:57] VITALS: RESP 18
[2017-11-22] MEDS ORDERED: Sodium Chloride 0.9% 1,000 ML IV ONE (12:29)
--- NOTE | 2017-11-22 12:59 | C.PDOC ---
History Of Present Illness 56 year old female presents to ED for evaluation of head injury, facial and multiple body contusions sustained yesterday at 7:00am after a fall. Pt states she felt dizzy while doing chores yesterday, and tumbled down 14 steps of stairs hitting her head. Denies LOC. Pt believes that she felt dizzy because her blood sugar level was low. Pt states she was able to ambulate without difficulty after the fall, without any hip or upper/lower extremity discomfort. Pt states she is concerned about the left eye contusion, right ring finger swelling, and bilateral knee pain. Otherwise, denies headache, visual changes, focal deficits, change in sensation, neck pain, chest pain, shortness of breath , n/v/d, abdominal pain, back pain, or fever. - HPI Time Seen by Provider: 11/22/17 12:05 Chief Complaint (Nursing): Trauma History Per: Patient History/Exam Limitations: no limitations Onset/Duration Of Symptoms: Days Injury Occurred (Timing): Days Ago: Location Of Injury: Right: Knee, Left: Knee Recent travel outside of the [place]: No Additional History Per: Patient Past Medical History Reviewed: Historical Data, Nursing Documentation, Vital Signs Vital Signs: Last Vital Signs Temp 97.8 F 11/22/17 16:03 Pulse 90 11/22/17 16:03 Resp 18 11/22/17 16:03 BP 147/80 11/22/17 16:03 Pulse Ox 99 11/22/17 16:03 - Medical History PMH: Depression, Diabetes, Gastritis, GERD, HTN Denies: Hepatitis, HIV, Chronic Kidney Disease, Seizures, Sexually Transmitted Disease Surgical History: Endoscopy - [facility] Procedures FLUOROSCOPY OF SUP VENA CAVA USING L OSM CONTRAST, GUIDANCE (07/28/17) INSERTION OF INFUSION DEV INTO SUP VENA CAVA, PERC APPROACH (07/28/17) Family History: States: Unknown Family Hx - Social History Hx Tobacco Use: No Hx Alcohol Use: No Hx Substance Use: No - Immunization History Hx Tetanus Toxoid Vaccination: No Hx Influenza Vaccination: Yes Hx Pneumococcal Vaccination: No Review Of Systems Except As Marked, All Systems Reviewed And Found Negative. Constitutional: Negative for: Fever, Chills Eyes: Positive for: Other (left orbital contusion). Negative for: Vision Change Cardiovascular: Negative for: Chest Pain, Palpitations Respiratory: Negative for: Cough, Shortness of Breath Gastrointestinal: Negative for: Nausea, Vomiting, Abdominal Pain, Diarrhea Musculoskeletal: Positive for: Hand Pain (right 4th digit ), Leg Pain (b/l knee pain) Skin: Positive for: Other (multiple body contusions) Neurological: Positive for: Dizziness. Negative for: Weakness, Numbness, Headache Physical Exam - Physical Exam Appears: Well, Non-toxic, No Acute Distress Skin: Normal Color, Warm, Dry, Ecchymosis (anterior chest wall, B/L LEs) Head: Normacephalic Eye(s): bilateral: PERRL, EOMI, left: Other (diffuse periorbital ecchymoses with tenderness over inferior aspect) Ear(s): Bilateral: Normal Nose: No Flaring, No Discharge, No Deformity, No Tenderness Oral Mucosa: Moist, No Drooling, No Trismus Tongue: Normal Appearing Lips: Normal Appearing Throat: No Drooling Neck: Trachea Midline, No Midline Cervical Tenderness, No Paracervical Tenderness, No Step Off Deformity, Supple, Other (Soft C-collar placed) Chest: Symmetrical, No Deformity, Tenderness (Right anterior/lateral chest wall overlying 4-7 intercostal spaces. ), No Ecchymosis, No Subcutaneous Emphysema Cardiovascular: Rhythm Regular, No Friction Rub, No Murmur, No JVD Respiratory: No Decreased Breath Sounds, No Accessory Muscle Use, No Stridor, No Wheezing Gastrointestinal/Abdominal: Soft, No Tenderness, No Distention, No Guarding Back: No Vertebral Tenderness, No Paraspinal Tenderness Extremity: Normal ROM, Tenderness (B/L anterior thighs R>L extends down to B/l knees. Tenderness with edema and ecchymoses over Right 4th finger.), No Deformity Neurological/Psych: Oriented x3, Normal Speech, Normal Motor, Normal Sensation, Normal Reflexes ED Course And Treatment - Laboratory Results Result Diagrams: 11/22/17 13:06 11/22/17 13:06 Lab Interpretation: No Acute Changes ECG: Interpreted By Me, Viewed By Me (and ED attending) Interpretation Of ECG: SR@85/min, NAD, no acute T wave or ST-T changes. O2 Sat by Pulse Oximetry: 100 (RA) Pulse Ox Interpretation: Normal - Other Rad Ribs right with chest Interpretation: (-) acute fx or sublux Pelvis with B/L hips, B/L femurs and B/L knees X-Ray: Interpreted by Me, Viewed By Me Interpretation: (-) acute fx or dislocation Right 4th finger X-Ray: Interpreted by Me, Viewed By Me Interpretation: (+) distal aspect 4th proximal phalanx fx - CT Scan/US CT head Other Rad Studies (CT/US): Interpreted By Me, Read By Radiologist CT/US Interpretation: IMPRESSION: No evidence of acute intracranial hemorrhage intracranial collection mass effect or midline shift. Left scalp hematoma and soft tissue swelling. Mucosal thickening and air-fluid level at the left maxillary sinus. CT C-spine Other Rad Studies (CT/US): Interpreted By Me, Read By Radiologist, Radiology Report Reviewed CT/US Interpretation: IMPRESSION: Un no evidence of acute fracture or subluxation. Degenerative disc changes more prominent at C5-C6. Orbits, left side Other Rad Studies (CT/US): Interpreted By Me, Read By Radiologist, Radiology Report Reviewed CT/US Interpretation: IMPRESSION: No evidence of acute fracture in the orbits. [id number] left periorbital soft tissue swelling. Mucosal thickening and air-fluid level in the left maxillary sinus noted. Progress Note: Blood work, urinalysis, X-rays: b/l femur/knee, right hand 4th digit, hip/pelvis, right ribs, CXR, head CT, cervical spine CT, orbits/facial CT ordered and reviewed. Pt was given Valium and IV fluids. Pt was OBS in Ed for 3 hours and reamined stable. On re-eval, pt is afebrile, hemodynamicaly stable. Non-toxic. Ambulatory in ED with stable gait. Head: AT/NC, (+) left sided orbital contusion. PEERLA, no pain or limittaion on extraocular movement. Neck: SUpple, (-) midline tenderness. Lungs: CTA B/L, BS equal B/L. Abd: benign. No deformity noted to B/L UEs and LEs. Neurologicaly intact. Blood owrk review , mild hyperglycemia, ketones negative. AG 10. Imagings review: (+) Right 4th finger fx. Aluminium finger splint applied. CT head, C-spine- normal study. CT left orbit: (-) acute fx, air-fluid level maxially sinus. Pt has clinical findings c/w head injury, dizziness, hyperglycemia due to DM2, left orbital contusion r/o sinusitus. Pt advised on course of ds. Advised OBS 48 hrs for any sign of head injury-return to ED for re-eval. Pt ref. to f/u with PMD, hand specialsit, ENT in 1-2 days for re-eval. Disposition Counseled Patient/Family Regarding: Studies Performed, Diagnosis, Need For Followup - Disposition Referrals: Wilmar Daniel, LUZ, LUMBER GRADER [Advanced Practice Nurse] - Yao Mishra MD [Staff Provider] - Jett Carrera MD [Staff Provider] - Disposition: HOME/ ROUTINE Disposition Time: 14:59 Condition: STABLE Additional Instructions: "BRAIN REST" FOR 1 WEEK HEAD ELEVATION, ICE TYLENOL FOR HEADACHE NEED TAKE ANTIBIOTIC PRESCRIBED OBSERVE 48 HRS FOR ANY SIGN OF HEAD INJURY-INTRACTABLE HEADACHE, VOMITING, LETHARGY OR ANY OTHER NEW CHANGES-RETURN TO ED IMMEDIATELY FOR RE-EVALUATION. FOLLOW UP WITH PMD IN 2 DAYS FOR RE-0EAVLUATION WITHOUT FAIL. 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 - Scribe Statement The provider has reviewed the documentation as recorded by the Shadiaibtj Russ All medical record entries made by the Shadiaibtj were at my direction and personally dictated by me. I have reviewed the chart and agree that the record accurately reflects my personal performance of the history, physical exam, medical decision making, and the department course for this patient. I have also personally directed, reviewed, and agree with the discharge instructions and disposition.
[2017-11-22 13:09] LABS: BASO # 0.1 K/uL (0.0-0.2); BASO % 0.6 % (0.0-2.0); EOS # 0.1 K/uL (0.0-0.7); EOS % 0.7 % (0.0-4.0); HEMOGLOBIN 13.8 g/dL (11.0-16.0); LYMPH # 2.5 K/uL (1.0-4.3); LYMPH % 18.9 % (20.0-40.0); MEAN CORPUSCULAR HEMOGLOBIN 30.8 pg (27.0-31.0); MEAN CORPUSCULAR HGB CONC 34.6 g/dL (33.0-37.0); MONO # 0.5 K/uL (0.0-0.8); MONO % 4.1 % (0.0-10.0); NEUT # 9.8 K/uL (1.8-7.0); NEUT % 75.7 % (50.0-75.0); RBC 4.5 Mil/uL (3.80-5.20); RED CELL DISTRIBUTION WIDTH 13.5 % (11.5-14.5)
[2017-11-22 13:22] LABS: CALCIUM 8.8 mg/dl (8.6-10.4); GFR AFRICAN-AMERICAN > 60; GFR NON-AFRICAN AMERICAN > 60
[2017-11-22 13:24] LABS: ALB/GLOB RATIO 1.1 (1.0-2.1); ALBUMIN 3.9 g/dL (3.5-5.0); ALT/SGPT 30 U/L (9-52); AST/SGOT 27 U/L (14-36); BLOOD UREA NITROGEN 19 mg/dL (7-17)
--- NOTE | 2017-11-22 13:26 | RAD ---
HISTORY: dizziness COMPARISON: 07/21/2014 TECHNIQUE: Chest PA and lateral FINDINGS: LUNGS: Poor expiratory effort is noted with crowding at both lung bases, greater on the left. No appreciable focal infiltrate is seen. PLEURA: No significant pleural effusion identified. No pneumothorax apparent. CARDIOVASCULAR: Heart is mildly enlarged. Vasculature does not appear to be significantly congested although crowding of the vascular nature is noted related to the poor expiratory effort and low lung volumes. OSSEOUS STRUCTURES: Degenerative changes in the spine without compression fracture. VISUALIZED UPPER ABDOMEN: Suboptimal OTHER FINDINGS: None. IMPRESSION: Poor expiratory effort with crowding at the lung bases. No focal infiltrate.
[2017-11-22 14:30] LABS: BARBITURATES, UR NEGATIVE (NEGATIVE); BENZODIAZEPINES, UR NEGATIVE (NEGATIVE); OPIATES, UR NEGATIVE (NEGATIVE); PHENCYCLIDINE, UR NEGATIVE (NEGATIVE)
--- NOTE | 2017-11-22 14:56 | CT ---
PROCEDURE: CT HEAD WITHOUT CONTRAST. HISTORY: injury,dizziness COMPARISON: None available. TECHNIQUE: Axial computed tomography images were obtained through the head/brain without intravenous contrast. Radiation dose: Total exam DLP = 1062.93 mGy-cm. This CT exam was performed using one or more of the following dose reduction techniques: Automated exposure control, adjustment of the mA and/or kV according to patient size, and/or use of iterative reconstruction technique. FINDINGS: HEMORRHAGE: No intracranial hemorrhage. BRAIN: No mass effect or edema. No atrophy or chronic microvascular ischemic changes. VENTRICLES: Unremarkable. No hydrocephalus. CALVARIUM: Unremarkable. PARANASAL SINUSES: Mucosal thickening and air-fluid level seen in the left maxillary sinus MASTOID AIR CELLS: Unremarkable as visualized. No inflammatory changes. OTHER FINDINGS: Left frontal and temporal scalp hematoma and soft tissue swelling. Moderate left periorbital soft tissue swelling also noted. IMPRESSION: No evidence of acute intracranial hemorrhage intracranial collection mass effect or midline shift. Left scalp hematoma and soft tissue swelling. Mucosal thickening and air-fluid level at the left maxillary sinus.
--- NOTE | 2017-11-22 15:01 | CT ---
PROCEDURE: CT ORBITS WITHOUT CONTRAST. HISTORY: Left face injury COMPARISON: None available. TECHNIQUE: Axial CT images of the orbits were obtained. Coronal and sagittal reformats were generated. Radiation dose: Total exam DLP = 902.57 mGy-cm. This CT exam was performed using one or more of the following dose reduction techniques: Automated exposure control, adjustment of the mA and/or kV according to patient size, and/or use of iterative reconstruction technique. FINDINGS: RIGHT ORBIT: RIGHT BONY ORBIT: Normal. RIGHT INTRAORBITAL STRUCTURES: Globe: Normal. Extraocular muscles: Normal. Post septal space: Normal. Optic Nerve: Normal. Lacrimal Apparatus: Normal. RIGHT PRESEPTAL SOFT TISSUES: Normal. LEFT ORBIT: LEFT BONY ORBIT: Normal. LEFT INTRAORBITAL STRUCTURES: Globe: Normal. Extraocular muscles: Normal. Post septal space: Normal Optic Nerve: Normal. . Lacrimal Apparatus: Normal. LEFT PRESEPTAL SOFT TISSUES: Moderate left periorbital soft tissue swelling seen. OTHER: Mucosal thickening and air-fluid level at the left maxillary sinus noted. IMPRESSION: No evidence of acute fracture in the orbits. Sanv-fc-[id number] left periorbital soft tissue swelling. Mucosal thickening and air-fluid level in the left maxillary sinus noted.
[2017-11-22] MEDS ORDERED: Amoxicillin-Clav 875-125 mg Tab PO STA (15:02)
--- NOTE | 2017-11-22 15:17 | CT ---
PROCEDURE: CT Cervical Spine without contrast HISTORY: Trauma COMPARISON: None available. TECHNIQUE: Axial computed tomography images were obtained of the cervical spine without the use of intravenous contrast. Coronal and sagittal reformatted images were created and reviewed. Radiation dose: Total exam DLP = 673.57 mGy-cm. This CT exam was performed using one or more of the following dose reduction techniques: Automated exposure control, adjustment of the mA and/or kV according to patient size, and/or use of iterative reconstruction technique. FINDINGS: VERTEBRAE: No fracture. Normal alignment. No destructive bony lesion. DISCS/SPINAL CANAL/NEURAL FORAMINA: No si [id number]-fi-pldnbeom degenerative changes. Osteophyte disc bulge complex at C5-C6 associated with mild spinal and neural foraminal narrowing. . Discs heights are grossly preserved. PARASPINAL SOFT TISSUES: Unremarkable. OTHER FINDINGS: None. IMPRESSION: Un no evidence of acute fracture or subluxation. Degenerative disc changes more prominent at C5-C6.
[2017-11-22] MEDS ORDERED: Amoxicillin-Clav 875-125 mg Tab PO ONE (15:56)
[2017-11-22 16:04] VITALS: BP 147/80; PULSE 90; TEMP 97.8
[2017-11-22 17:07] VITALS: O2SAT 100
--- NOTE | 2017-11-22 17:14 | RAD ---
PROCEDURE: Radiographs of the pelvis and bilateral hips HISTORY: injury COMPARISON: None. FINDINGS: BONES: Pelvis: Unremarkable. Right hip:Unremarkable. Left hip:Unremarkable. JOINTS: Right hip: Mild osteoarthritic changes Left hip: Mild osteoarthritic changes Sacroiliac Joints: Unremarkable. Pubic symphysis: Moderate arthritic changes. SOFT TISSUES: Normal. OTHER FINDINGS: None. IMPRESSION: No evidence of acute fracture or dislocation.
--- NOTE | 2017-11-22 17:37 | RAD ---
PROCEDURE: Right ring finger radiographs. HISTORY: injury COMPARISON: None. TECHNIQUE: AP radiograph of the right hand, as well as spot oblique and lateral images of ring finger were obtained. FINDINGS: RIGHT RING FINGER: Normal right ring finger, without fracture or focal lesion. Remainder of the right hand (as seen on the AP view) grossly unremarkable. JOINTS: Normal. SOFT TISSUES: Normal. OTHER FINDINGS: None. IMPRESSION: No evidence of acute fracture or dislocation.
--- NOTE | 2017-11-22 17:51 | RAD ---
PROCEDURE: Radiographs of the bilateral femurs. HISTORY: injury COMPARISON: None. FINDINGS: BONES: Right Femur: Normal. No fracture. Left Femur: Normal. No fracture. SOFT TISSUES: Right Femur: Normal. Left Femur: Normal. OTHER FINDINGS: None. IMPRESSION: No evidence of acute fracture.
--- NOTE | 2017-11-22 17:53 | RAD ---
PROCEDURE: Bilateral Knee Radiographs. HISTORY: injury COMPARISON: None. FINDINGS: BONES: Right Knee: Normal. No fracture. Left Knee: Normal. No fracture. JOINTS: Right Knee: Mild osteoarthrosis Left knee: Mild osteoarthritis SOFT TISSUES: Right Knee: Normal. Left Knee: Normal. JOINT EFFUSION: Right Knee: None. Left Knee: None. OTHER FINDINGS: None. IMPRESSION: No evidence of acute fracture or dislocation mild osteoarthritic changes.
--- NOTE | 2017-11-22 17:58 | RAD ---
PROCEDURE: X-ray of the right ribs HISTORY: injury COMPARISON: Comparison is made with the previous chest x-ray TECHNIQUE: Multiple right ribs x-rays were obtained. FINDINGS: No evidence of acute displaced fracture. No evidence of right pleural effusion or pleural effusion IMPRESSION: No evidence of acute fracture.
== END 2017-11-22 16:03 | disposition home or self-care (01) ==
LOC: C.ER 11:45
DX: S62.614A Displaced fracture of proximal phalanx of right ring finger, initial encounter for closed fracture (principal); S05.12XA Contusion of eyeball and orbital tissues, left eye, initial encounter; W10.9XXA Fall (on) (from) unspecified stairs and steps, initial encounter; E11.65 Type 2 diabetes mellitus with hyperglycemia; R42 Dizziness and giddiness

== ENCOUNTER 2018-08-24 01:15 | Emergency (ER) | payer OTHER ==
[2018-08-24 01:15] VITALS: BMI 41.7
[2018-08-24] MEDS ORDERED: Sodium Chloride 0.9% 1,000 ML IV ONE (01:43)
[2018-08-24] MEDS ORDERED: Iohexol 240 (50 ml) PO ONE (01:45)
[2018-08-24 01:54] LABS: BASO # 0.1 K/uL (0.0-0.2); HEMOGLOBIN 14.4 g/dL (11.0-16.0); MEAN CELL VOLUME 83.5 fL (81.0-99.0); MONO # 0.4 K/uL (0.0-0.8); NRBC % 0.1 % (0.0-2.0); WHITE BLOOD COUNT 14.3 K/uL (4.8-10.8)
[2018-08-24 02:00] LABS: BASO % 0.6 % (0.0-2.0); EOS % 0.1 % (0.0-4.0); LYMPH # 1.5 K/uL (1.0-4.3); LYMPH % 10.5 % (20.0-40.0); MEAN CORPUSCULAR HGB CONC 33.5 g/dL (33.0-37.0); MEAN PLATELET VOLUME 8.6 fL (7.2-11.7); MONO % 2.6 % (0.0-10.0); NEUT # 12.3 K/uL (1.8-7.0); NEUT % 86.2 % (50.0-75.0); RBC 5.16 Mil/uL (3.80-5.20); RED CELL DISTRIBUTION WIDTH 14.1 % (11.5-14.5)
[2018-08-24 02:05] LABS: ALB/GLOB RATIO 1.2 (1.0-2.1); ALBUMIN 4.3 g/dL (3.5-5.0); ALT/SGPT 27 U/L (9-52); AST/SGOT 20 U/L (14-36); BLOOD UREA NITROGEN 14 mg/dL (7-17); CALCIUM 10.2 mg/dl (8.6-10.4); GFR NON-AFRICAN AMERICAN > 60; LIPASE 46 U/L (23-300)
--- NOTE | 2018-08-24 02:20 | C.PDOC ---
History Of Present Illness 57 year old female presents to the ED c/o abdominal pain and vomiting since yesterday. Patient states she has chronic history of abdominal pain and vomiting and has multiple admission for the same. Patient denies fever, chills, diarrhea, back pain, dysuria, hematuria. Chief Complaint (Nursing): Abdominal Pain History Per: Patient History/Exam Limitations: no limitations Onset/Duration Of Symptoms: Days Current Symptoms Are (Timing): Still Present Location Of Pain/Discomfort: Diffuse Radiation Of Pain To:: None Quality Of Discomfort: "Pain" Associated Symptoms: Vomiting Alleviating Factors: None Recent travel outside of the [place]: No Past Medical History Reviewed: Historical Data, Nursing Documentation, Vital Signs Vital Signs: Last Vital Signs Temp 97.3 F L 08/24/18 01:29 Pulse 76 08/24/18 01:29 Resp 16 08/24/18 01:29 BP 156/85 H 08/24/18 01:29 Pulse Ox 97 08/24/18 01:29 - Medical History PMH: Depression, Diabetes, Gastritis, GERD, HTN Denies: Hepatitis, HIV, Chronic Kidney Disease, Seizures, Sexually Transmitted Disease Surgical History: Endoscopy - [facility] Procedures FLUOROSCOPY OF SUP VENA CAVA USING L OSM CONTRAST, GUIDANCE (07/28/17) INSERTION OF INFUSION DEV INTO SUP VENA CAVA, PERC APPROACH (07/28/17) Family History: States: Unknown Family Hx - Social History Hx Tobacco Use: No Hx Alcohol Use: Yes Hx Substance Use: No - Immunization History Hx Tetanus Toxoid Vaccination: No Hx Influenza Vaccination: Yes Hx Pneumococcal Vaccination: No Review Of Systems Constitutional: Negative for: Fever, Chills Cardiovascular: Negative for: Chest Pain Respiratory: Negative for: Shortness of Breath Gastrointestinal: Positive for: Vomiting, Abdominal Pain. Negative for: Nausea Skin: Negative for: Rash Neurological: Negative for: Weakness, Numbness Physical Exam - Physical Exam Appears: Non-toxic, In Acute Distress Skin: Normal Color, Warm, Dry Head: Atraumatic, Normacephalic Eye(s): bilateral: Normal Inspection Neck: Normal ROM, Supple Chest: Symmetrical Cardiovascular: Rhythm Regular Respiratory: Normal Breath Sounds, No Rales, No Rhonchi, No Wheezing Gastrointestinal/Abdominal: Soft, Tenderness (generalized), No Guarding, No Rebound, Other (obese) Extremity: Normal ROM, No Tenderness, No Swelling Neurological/Psych: Oriented x3, Normal Speech, Normal Cognition Gait: Steady ED Course And Treatment - Laboratory Results Result Diagrams: 08/24/18 01:51 08/24/18 01:51 ECG: Interpreted By Me, Viewed By Me ECG Rhythm: Sinus Rhythm ECG Interpretation: Normal, No Acute Changes Interpretation Of ECG: NSR, normal tracings Rate From EC O2 Sat by Pulse Oximetry: 97 (ON RA) Pulse Ox Interpretation: Normal - CT Scan/US CT abd/pelvis Other Rad Studies (CT/US): Read By Radiologist, Radiology Report Reviewed CT/US Interpretation: CT SCAN OF THE ABDOMEN AND PELVIS WITH CONTRAST. CLINICAL HISTORY: Abdominal pain. Vomiting. TECHNIQUE: Multiple axial and coronal CT i mages were obtained through the abdomen and pelvis after administration of intravenous contrast material. COMMENTS: Fluid filled stomach, probably gastroparesis. Uncomplicated colonic diverticulosis. Mild pericardial effusion. The liver is of uniform attenuation without mass or defect. There is no intra or extrahepatic biliary ductal dilatation. The spleen is normal. The gallbladder is within normal limits. The pancreas is of normal contour and attenuation characteristics. There is no evidence of adrenal mass. Both kidneys demonstrate prompt and equal nephrograms. The kidneys are normal in size, shape and configuration. There is no evidence of renal or ureteral mass. No renal or ureteral calculi are identified. There is no hydroureter or hydronephrosis. No evidence for appendicitis. There is no bowel wall thickening. No evidence for small or large bowel obstruction. There is no evidence of abdominal ascites or lymphadenopathy. There is no evidence of intrinsic or extrinsic bladder mass. There is no pelvic ascites or lymphadenopathy. Images of the lung bases show no evidence of pleural or parenchymal mass. There are no pleural effusions. The bony structures are free of lytic or blastic lesions. IMPRESSION: Gastroparesis. No evidence of acute abdominal or pelvic pathology. Thank you for your kind referral of this patient. . Electronically signed on Aug 24, 2018 4:21:58 AM EDT by: Damián Urbina M.D., Certified by [facility], Neuroradiology Medical Decision Making Medical Decision Making: Plan: * CT abd/pelvis * Labs * Insulin 3 inuts SC * Toradol 30 mg IVP * Zofran 4 mg IVP * IV fluids * UA Disposition Counseled Patient/Family Regarding: Diagnosis - Disposition Referrals: Non [facility] Provider, [Primary Care Provider] - Wilmar Daniel, LUZ, DECORATOR MANNEQUIN [Advanced Practice Nurse] - Disposition: HOME/ ROUTINE Disposition Time: 05:37 Condition: STABLE Prescriptions: Nitrofurantoin Macrocrystals [Macrobid] 1 cap PO BID #14 cap Ondansetron [Zofran Odt] 4 mg PO Q8 #7 odt Instructions: Urinary Tract Infections in Adults, Nausea and Vomiting, Adult Forms: [employer] [facility] (Mongolian) - POA Present On Arrival: None - Clinical Impression Clinical Impression: Abdominal pain, UTI (urinary tract infection), Vomiting - Scribe Statement The provider has reviewed the documentation as recorded by the Scribe Provider Attestation: Ronnie Jha All medical record entries made by the Scribe were at my direction and personally dictated by me. I have reviewed the chart and agree that the record accurately reflects my personal performance of the history, physical exam, medical decision making, and the department course for this patient. I have also personally directed, reviewed, and agree with the discharge instructions and disposition.
[2018-08-24] MEDS ORDERED: Iohexol 240 (50 ml) ONE (02:25)
[2018-08-24] MEDS ORDERED: (Novolin R) Insulin Human Regular 100 units/ml vial SC ONE (02:41)
[2018-08-24] MEDS ORDERED: (Novolin R) Insulin Human Regular 100 units/ml vial ONE (02:53)
[2018-08-24] MEDS ORDERED: Iodixanol 320 MG/ML 100 ML BOTTLE IV ONE (03:02)
[2018-08-24 04:38] VITALS: RESP 16
[2018-08-24 05:19] LABS: SQUAMOUS EPITHIAL 1 /hpf (0-5); URINE BILIRUBIN NEGATIVE (NEGATIVE); URINE BLOOD 1+ (NEGATIVE); URINE CLARITY Clear (Clear); URINE COLOR Straw (YELLOW); URINE GLUCOSE (UA) 1+ mg/dL (Normal); URINE LEUKOCYTE ESTERASE NEG Leu/uL (Negative); URINE PROTEIN 2+ mg/dL (NEGATIVE); URINE UROBILINOGEN NORMAL mg/dL (0.2-1.0)
[2018-08-24 06:07] VITALS: BP 174/90; PULSE 92; TEMP 98.6; O2SAT 96
--- NOTE | 2018-08-24 12:08 | CT ---
Date of service: 08/24/2018 PROCEDURE: CT Abdomen and Pelvis with contrast HISTORY: abd pain/ vomiting COMPARISON: CT pancreatic protocol performed 07/29/17, CT abdomen and pelvis with IV contrast performed 07/25/17 TECHNIQUE: Contrast dose: 100 mL Visipaque IV Radiation dose: Total exam DLP = 1117.81 mGy-cm. This CT exam was performed using one or more of the following dose reduction techniques: Automated exposure control, adjustment of the mA and/or kV according to patient size, and/or use of iterative reconstruction technique. FINDINGS: LOWER THORAX: No visible consolidation, pleural effusion, or pneumothorax. Small pericardial effusion. LIVER: Mild hypoattenuation adjacent to the falciform ligament, likely focal fatty infiltration. GALLBLADDER AND BILE DUCTS: Unremarkable. PANCREAS: Fatty atrophy of the pancreas. SPLEEN: Unremarkable. ADRENALS: Unremarkable. KIDNEYS AND URETERS: The kidneys enhance symmetrically. No hydronephrosis or obstructing calculus identified. VASCULATURE: No aortic aneurysm. BOWEL: Fluid-filled stomach which is incompletely distended. Lack of oral contrast limits evaluation for bowel pathology. Bowel loops appear within normal limits of caliber without evidence of obstruction. APPENDIX: The appendix appears within normal limits of caliber. No secondary signs of acute appendicitis. PERITONEUM: No significant free fluid. No definite free air. LYMPH NODES: No bulky adenopathy identified. BLADDER: Unremarkable. REPRODUCTIVE: The uterus is present. BONES: Mild degenerative changes. OTHER FINDINGS: None. IMPRESSION: Fluid-filled incompletely distended stomach; correlate for gastroparesis. Subtle hypodensity adjacent to the falciform ligament may represent focal fatty infiltration. Fatty atrophy of the pancreas. Small pericardial effusion. Preliminary impression was provided by [employer].
--- NOTE | 2018-08-26 08:44 | CARD ---
APPROVED REPORT Date of service: 08/24/2018 EKG Measurement Heart [id number] [id number] <Conclusion> Normal sinus rhythm Prolonged QTc
== END 2018-08-24 06:13 | disposition home or self-care (01) ==
LOC: SUPCPDRO 01:15 → C.ER 01:15
DX: N39.0 Urinary tract infection, site not specified (principal); R11.10 Vomiting, unspecified; R10.9 Unspecified abdominal pain; I10 Essential (primary) hypertension; E11.9 Type 2 diabetes mellitus without complications; K21.9 Gastro-esophageal reflux disease without esophagitis; F17.210 Nicotine dependence, cigarettes, uncomplicated
CPT/HCPCS: 74177; 80053; 80320; 81001; 82948; 83690; 85025; 87086; 93005; 96372; 96374; 96375; 96376; 99285; J0500; J1885; J2405; J7030; Q9966; Q9967

== ENCOUNTER 2018-11-27 14:38 | Outpatient (CLI) | payer OTHER | END 2018-11-27 14:39 | disposition home or self-care (01) | LOC: C.MAMMO 14:38 | DX: Z12.31 Encounter for screening mammogram for malignant neoplasm of breast (principal) ==

== ENCOUNTER 2018-12-20 14:19 | Emergency (ER) | payer OTHER ==
[2018-12-20 14:19] VITALS: BMI 41.7
[2018-12-20] MEDS ORDERED: Sodium Chloride 0.9% 1,000 ML IV STA ×2 (15:16→18:39)
[2018-12-20] MEDS ORDERED: Sodium Chloride 0.9% 1,000 ML ONE ×2 (15:23→19:31)
[2018-12-20 15:56] LABS: BASO # 0.1 K/uL (0.0-0.2); BASO % 0.3 % (0.0-2.0); HEMOGLOBIN 17.1 g/dL (11.0-16.0); LYMPH # 1.3 K/uL (1.0-4.3); LYMPH % 5.8 % (20.0-40.0); MEAN CELL VOLUME 83.5 fL (81.0-99.0); MEAN CORPUSCULAR HEMOGLOBIN 27.7 pg (27.0-31.0); MEAN CORPUSCULAR HGB CONC 33.2 g/dL (33.0-37.0); MEAN PLATELET VOLUME 8.9 fL (7.2-11.7); MONO # 0.7 K/uL (0.0-0.8); MONO % 3.3 % (0.0-10.0); NEUT % 90.6 % (50.0-75.0); NRBC % 0.1 % (0.0-2.0); PLATELET COUNT 440 K/uL (130-400); RBC 6.15 Mil/uL (3.80-5.20); WHITE BLOOD COUNT 22.1 K/uL (4.8-10.8)
[2018-12-20 16:10] LABS: ALB/GLOB RATIO 1.4 (1.0-2.1); ALBUMIN 4.8 g/dL (3.5-5.0); BLOOD UREA NITROGEN 25 mg/dL (7-17); GFR NON-AFRICAN AMERICAN 51; LIPASE 44 U/L (23-300)
[2018-12-20] MEDS ORDERED: Sodium Chloride 0.9% 50 ML IV ONE (16:21)
[2018-12-20 16:24] LABS: ALT/SGPT < 6 U/L (9-52); AST/SGOT 20 U/L (14-36)
[2018-12-20] MEDS ORDERED: Labetalol 25mg/5ml Syringe IV STA (16:32)
[2018-12-20] MEDS ORDERED: Labetalol 5mg/ml (4ml) ONE (17:33)
[2018-12-20 17:50] VITALS: RESP 18; O2SAT 95
[2018-12-20 18:07] LABS: BANDS 1 % (0-2); LYMPHOCYTE 4 % (20-40); MONOCYTE 3 % (0-10); NEUTROPHIL 92 % (50-75); PLATELET ESTIMATE SLIGHTLY INCREASED (NORMAL); TOTAL CELLS COUNTED 100
--- NOTE | 2018-12-20 18:15 | C.PDOC ---
History Of Present Illness 58 year old female with PMHx of gastroparesis and diabetes presents to the ED complaining of vomiting and epigastric pain for one day. States she has severe vomiting several times a year and usually goes to the hospital. Patient has multiple scans which show a stable pancreatic tumor that has been observed for the last 4-5 years. Last scan was in August, and results were normal. Contrary to triage, patient has no diarrhea. Chief Complaint (Nursing): Abdominal Pain History Per: Patient History/Exam Limitations: no limitations Onset/Duration Of Symptoms: Days (1) Current Symptoms Are (Timing): Still Present Location Of Pain/Discomfort: Epigastric Associated Symptoms: Vomiting. denies: Fever, Chills, Diarrhea Past Medical History Reviewed: Historical Data, Nursing Documentation, Vital Signs Vital Signs: Last Vital Signs Temp 97.5 F L 12/20/18 14:51 Pulse 121 H 12/20/18 17:31 Resp 18 12/20/18 17:31 BP 128/78 12/20/18 17:31 Pulse Ox 95 12/20/18 17:31 - Medical History PMH: Depression, Diabetes, Gastritis, GERD, HTN Denies: Hepatitis, HIV, Chronic Kidney Disease, Seizures, Sexually Transmitted Disease Surgical History: Endoscopy - [facility] Procedures FLUOROSCOPY OF SUP VENA CAVA USING L OSM CONTRAST, GUIDANCE (07/28/17) INSERTION OF INFUSION DEV INTO SUP VENA CAVA, PERC APPROACH (07/28/17) Family History: States: No Known Family Hx - Social History Hx Tobacco Use: No Hx Alcohol Use: Yes Hx Substance Use: No - Immunization History Hx Tetanus Toxoid Vaccination: No Hx Influenza Vaccination: Yes Hx Pneumococcal Vaccination: No Review Of Systems Except As Marked, All Systems Reviewed And Found Negative. Constitutional: Negative for: Fever, Chills Gastrointestinal: Positive for: Vomiting, Abdominal Pain. Negative for: Diarrhea Physical Exam - Physical Exam Appears: Non-toxic, Other (anxious, actively vomiting, crying) Skin: Warm, Dry Head: Normacephalic Eye(s): bilateral: Normal Inspection Nose: Normal Oral Mucosa: Moist Neck: Supple Chest: Symmetrical Cardiovascular: Rhythm Regular, Other (tachycardic, hypertensive ) Respiratory: Normal Breath Sounds, No Rales, No Rhonchi, No Wheezing Gastrointestinal/Abdominal: Soft, Tenderness (epigastric tenderness), No Distention, No Guarding, No Rebound Neurological/Psych: Oriented x3, Normal Speech Gait: Steady ED Course And Treatment - Laboratory Results Result Diagrams: 12/20/18 15:51 12/20/18 15:51 Lab Results: Total Bilirubin 1.0 mg/dL (0.2-1.3) 12/20/18 15:51 AST 20 U/L (14-36) 12/20/18 15:51 ALT < 6 U/L (9-52) L D 12/20/18 15:51 Alkaline Phosphatase 138 U/L (38-126) H 12/20/18 15:51 Total Protein 8.3 g/dL (6.3-8.3) 12/20/18 15:51 Albumin 4.8 g/dL (3.5-5.0) 12/20/18 15:51 Globulin 3.4 gm/dL (2.2-3.9) 12/20/18 15:51 Albumin/Globulin Ratio 1.4 (1.0-2.1) 12/20/18 15:51 Lipase 44 U/L (23-300) 12/20/18 15:51 O2 Sat by Pulse Oximetry: 95 (RA) Pulse Ox Interpretation: Normal Progress Note: Blood and urine collected and sent to the lab for analysis. Patient treated with Protonix 40mg IVP, Reglan 10mg IVP, Toradol 30mg IVP, Trandate 20mg IV, and Zofran 4mg IVP. On reeval, patient reports feeling better, vomiting subsided and hypertension resolved without treatmed. Patient feels much better, previously has elevated WBCs with vomiting. Currently asymptomatic, no dysuria, no upper respiratory symptoms. Patient will be d/c home with PMD follow up tomorrow. 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 - Scribe Statement The provider has reviewed the documentation as recorded by the Scribe Melissa Sidhu All medical record entries made by the Scribe were at my direction and personally dictated by me. I have reviewed the chart and agree that the record accurately reflects my personal performance of the history, physical exam, medical decision making, and the department course for this patient. I have also personally directed, reviewed, and agree with the discharge instructions and disposition. Physician Patient Turnover Patient Signed Over To: José Miguel Villegas DO Handoff Comments: Finish IVF bolus, repeat CBC and check UA. If ok, maybe discharge, if still high, admit for observation.
[2018-12-20] MEDS ORDERED: Sodium Chloride 0.9% 500 ML IV ONE (18:45)
[2018-12-20 19:49] LABS: BASO # 0.1 K/uL (0.0-0.2); BASO % 0.3 % (0.0-2.0); HEMOGLOBIN 15.2 g/dL (11.0-16.0); LYMPH # 1.4 K/uL (1.0-4.3); LYMPH % 6.2 % (20.0-40.0); MEAN CORPUSCULAR HEMOGLOBIN 28.3 pg (27.0-31.0); MEAN CORPUSCULAR HGB CONC 33.6 g/dL (33.0-37.0); MEAN PLATELET VOLUME 8.6 fL (7.2-11.7); MONO # 0.8 K/uL (0.0-0.8); MONO % 3.7 % (0.0-10.0); NEUT # 19.9 K/uL (1.8-7.0); NEUT % 89.8 % (50.0-75.0); RBC 5.38 Mil/uL (3.80-5.20); RED CELL DISTRIBUTION WIDTH 13.9 % (11.5-14.5); WHITE BLOOD COUNT 22.1 K/uL (4.8-10.8)
[2018-12-20 20:36] VITALS: BP 130/71; PULSE 105; TEMP 99
== END 2018-12-20 20:34 | disposition home or self-care (01) ==
LOC: C.ER 14:19
DX: R11.10 Vomiting, unspecified (principal)
CPT/HCPCS: 80053; 83690; 85025; 96361; 96374; 96375; 96376; 99284; C9113; J1885; J2405; J2765; J7030

== ENCOUNTER 2018-12-21 09:24 | Observation (INO) | payer OTHER ==
[2018-12-21 09:32] VITALS: BMI 36.7
[2018-12-21] MEDS ORDERED: Sodium Chloride 0.9% 500 ML IV ONE ×2 (10:02→10:42)
--- NOTE | 2018-12-21 10:11 | C.PDOC ---
History Of Present Illness 58 y/o female,w/PMhx of diabetes and HTN, presents to the ER complaining of nausea, vomiting, and acute onset of chronic abdominal pain which has been present for the past 3 days. Patient states that she was evaluated for same complaint in [facility] [place] ER yesterday. At the time, she had labwork which showed WBC 22,000 with unknown source of infection. She was treated with Reglan and Zofran with some relief. She notes that she continues to have pain today. Denies having fever, chills, CP, SOB, dysuria, and hematuria. Of note, patient has visited [facility] [place] ER multiple times for the same complaint. Time Seen by Provider: 12/21/18 09:53 Chief Complaint (Nursing): Abdominal Pain History Per: Patient History/Exam Limitations: no limitations Onset/Duration Of Symptoms: Days Current Symptoms Are (Timing): Still Present Severity: Moderate Past Medical History Reviewed: Historical Data, Nursing Documentation, Vital Signs Vital Signs: Last Vital Signs Temp 97.9 F 12/21/18 09:33 Pulse 104 H 12/21/18 09:33 Resp 22 12/21/18 09:33 BP 178/97 H 12/21/18 09:33 Pulse Ox 99 12/21/18 09:33 - Medical History PMH: Depression, Diabetes, Gastritis, GERD, HTN Denies: Hepatitis, HIV, Chronic Kidney Disease, Seizures, Sexually Transmitted Disease Surgical History: Endoscopy - [facility] Procedures FLUOROSCOPY OF SUP VENA CAVA USING L OSM CONTRAST, GUIDANCE (07/28/17) INSERTION OF INFUSION DEV INTO SUP VENA CAVA, PERC APPROACH (07/28/17) Family History: States: No Known Family Hx - Social History Hx Tobacco Use: No Hx Alcohol Use: Yes Hx Substance Use: No - Immunization History Hx Tetanus Toxoid Vaccination: No Hx Influenza Vaccination: Yes Hx Pneumococcal Vaccination: No Review Of Systems Except As Marked, All Systems Reviewed And Found Negative. Constitutional: Negative for: Fever, Chills Gastrointestinal: Positive for: Nausea, Vomiting, Abdominal Pain Genitourinary: Negative for: Dysuria, Hematuria Physical Exam - Physical Exam Appears: Agitated, Other (writhing around bed) Skin: Normal Color, Warm, Dry Head: Atraumatic, Normacephalic Eye(s): bilateral: Normal Inspection Nose: Normal Oral Mucosa: Moist Neck: Supple Chest: Symmetrical Cardiovascular: Rhythm Regular (with tachycardia) Respiratory: Normal Breath Sounds, No Rales, No Rhonchi, No Wheezing Gastrointestinal/Abdominal: Soft, Tenderness (diffuse tenderness), No Guarding, No Rebound, Other (obese) Extremity: Normal ROM, Other (no pitting edema) Neurological/Psych: Oriented x3, Normal Speech Additional Physical Exam Comments: Patient is tachycardic 104 bpm and slightly hypertensive. ED Course And Treatment - Laboratory Results Result Diagrams: 12/21/18 11:04 12/21/18 11:04 O2 Sat by Pulse Oximetry: 99 (RA) Pulse Ox Interpretation: Normal Medical Decision Making Medical Decision Making: Plan: --Labs --UA --CXR --X-Ray-Obs. Series --Reglan IV --Toradol IV -- Disposition Discussed With Dr.: Manuel Raza - Disposition Disposition: HOSPITALIZED Disposition Time: 12:09 Condition: GUARDED Forms: [facility] [facility] (Ivorian) - Clinical Impression Clinical Impression: Abdominal pain, Nausea - Scribe Statement The provider has reviewed the documentation as recorded by the Lucía Liu Provider Attestation: All medical record entries made by the Scribe were at my direction and personally dictated by me. I have reviewed the chart and agree that the record accurately reflects my personal performance of the history, physical exam, medical decision making, and the department course for this patient. I have also personally directed, reviewed, and agree with the discharge instructions and disposition. Decision To Admit - Pt Status Changed To: Hospital Disposition Of: Observation - . Bed Request Type: Regular Admitting Physician: Manuel Raza Patient Diagnosis: Abdominal pain, Nausea
[2018-12-21 11:13] LABS: BASO # 0.1 K/uL (0.0-0.2); BASO % 0.5 % (0.0-2.0); HEMOGLOBIN 15.6 g/dL (11.0-16.0); LYMPH # 1.5 K/uL (1.0-4.3); LYMPH % 7.2 % (20.0-40.0); MEAN CELL VOLUME 83.9 fL (81.0-99.0); MEAN CORPUSCULAR HEMOGLOBIN 28.3 pg (27.0-31.0); MEAN CORPUSCULAR HGB CONC 33.7 g/dL (33.0-37.0); MEAN PLATELET VOLUME 8.9 fL (7.2-11.7); MONO # 0.5 K/uL (0.0-0.8); MONO % 2.6 % (0.0-10.0); NEUT # 18.3 K/uL (1.8-7.0); NEUT % 89.7 % (50.0-75.0); PLATELET COUNT 365 K/uL (130-400); RBC 5.52 Mil/uL (3.80-5.20); RED CELL DISTRIBUTION WIDTH 13.8 % (11.5-14.5); WHITE BLOOD COUNT 20.4 K/uL (4.8-10.8)
[2018-12-21 11:34] LABS: ALB/GLOB RATIO 1.4 (1.0-2.1); ALBUMIN 5.4 g/dL (3.5-5.0); CALCIUM 9.9 mg/dl (8.6-10.4)
[2018-12-21 11:40] LABS: SQUAMOUS EPITHIAL 2 /hpf (0-5); URINE BACTERIA RARE (<OCC); URINE BILIRUBIN NEGATIVE (NEGATIVE); URINE BLOOD 1+ (NEGATIVE); URINE CLARITY Hazy (Clear); URINE COLOR Yellow (YELLOW); URINE GLUCOSE (UA) 2+ mg/dL (Normal); URINE LEUKOCYTE ESTERASE NEG Leu/uL (Negative); URINE PROTEIN 3+ mg/dL (NEGATIVE); URINE UROBILINOGEN NORMAL mg/dL (0.2-1.0)
[2018-12-21 11:41] LABS: BARBITURATES, UR NEGATIVE (NEGATIVE); BENZODIAZEPINES, UR NEGATIVE (NEGATIVE); OPIATES, UR NEGATIVE (NEGATIVE); PHENCYCLIDINE, UR NEGATIVE (NEGATIVE)
[2018-12-21 11:51] LABS: LYMPHOCYTE 9 % (20-40); MONOCYTE 4 % (0-10); NEUTROPHIL 87 % (50-75); PLATELET ESTIMATE NORMAL (NORMAL); TOTAL CELLS COUNTED 100
--- NOTE | 2018-12-21 12:49 | CP.PCM.HP ---
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 She complains of nausea, vomiting, and acute onset of her symptoms since she stopped taking her diabetes medications this past week. Patient says she has not had a normal bm in over 4 days and yesterday had very small amount of diarrhea. Pt says she follows up with Dr Ni her GI for which she had a recent EGD. She also had a recent dx of a pancreatic tail mass in July and had CT imaging done. Pt says this abdominal pain has come before but this one feels most severe. Of note pt came to [facility] ED yesterday with the same symptoms and a WBC 22,000 with unknown source of infection. She was treated with Reglan and Zofran with some relief. ROS: pos+ LUQ abd pain, constipation, nausea, vomiting, medication noncompliance, hx of neoplasm, scant diarrhea neg- fever, chills, CP, SOB, dysuria, hematochezia, hematuria, night sweats, weight changes, fatigue, sick contacts PMD= Wilmar [employer] , GI: Last Allergies= NDKA PMH: DM, HTN, L/s Radiculopathy, Left hip arthritis, GERD, Pancreatic tail Mass (07/2018) PSH: Breast biopsy FamilyHx * Mom=DM * Dad=Pancreatic CA, Colon CA * Sister= Breast CA * Brother= Prostate CA SocHx: 15 pk yr, hx of heroin and crack abuse HomeRx: Vistaril 1 qd Toprol ER 50 QD Glymeperide 2 QD Metformin 500 BID Trulicity 0.75 q7d Toujea 30 qd Reglan 2.5 TID Omeprazole 25 QD Enalapril 2.5 QD Code Satus: DNR/DNI Contact: Hermelinda Navarro [phone], Sister Present on Admission - Present on Admission Any Indicators Present on Admission: Yes History of Uncontrolled Diabetes: Yes Review of Systems - Constitutional Constitutional: absent: Chills, Fever, Weight Gain, Weight Loss, Weakness - EENT Eyes: absent: Change in Vision - Cardiovascular Cardiovascular: absent: Chest Pain, Dyspnea, Pain Radiating to Arm/Neck/Jaw - Respiratory Respiratory: absent: Cough, Dyspnea, Wheezing - Gastrointestinal Gastrointestinal: Abdominal Pain, Diarrhea, Nausea, Vomiting. absent: Coffee Ground Emesis, Dysphagia - Integumentary Integumentary: absent: Rash - Neurological Neurological: absent: Dizziness, Headaches, Weakness - Psychiatric Psychiatric: absent: Anxiety, Mood Swings Past Patient History - Infectious Disease Hx of Infectious Diseases: None - Past Medical History & Family History Past Medical History?: Yes - Past Social History Smoking Status: Light Smoker < 10 Cigarettes Daily - CARDIAC Hx Hypertension: Yes - PULMONARY Hx Respiratory Disorders: No Hx Tuberculosis: No - NEUROLOGICAL Hx Seizures: No - HEENT Hx HEENT Problems: No - RENAL Hx Chronic Kidney Disease: No - ENDOCRINE/METABOLIC Hx Endocrine Disorders: Yes Hx Diabetes Mellitus Type 2: Yes - HEMATOLOGICAL/ONCOLOGICAL Hx Human Immunodeficiency Virus (HIV): No - INTEGUMENTARY Hx Dermatological Problems: No - MUSCULOSKELETAL/RHEUMATOLOGICAL Hx Musculoskeletal Disorders: No Hx Falls: No - GASTROINTESTINAL Hx Gastritis: Yes - GENITOURINARY/GYNECOLOGICAL Hx Sexually Transmitted Disorders: No - PSYCHIATRIC Hx Depression: Yes Hx Substance Use: No - SURGICAL HISTORY Hx Surgeries: Yes - ANESTHESIA Hx Anesthesia: Yes Hx Anesthesia Reactions: No Hx Malignant Hyperthermia: No Meds Allergies/Adverse Reactions: Allergies Allergy/AdvReac Type Severity Reaction Status Date / Time No Known Allergies Allergy Verified 12/21/18 09:29 Physical Exam - Constitutional Appears: Non-toxic, No Acute Distress - Eye Exam Eye Exam: EOMI, Normal appearance. absent: Scleral icterus - Neck Exam Neck exam: Negative for: Lymphadenopathy, Thyromegaly - Respiratory Exam Respiratory Exam: Clear to Auscultation Bilateral, NORMAL BREATHING PATTERN. absent: Wheezes - Cardiovascular Exam Cardiovascular Exam: Tachycardia, +S1, +S2 - GI/Abdominal Exam GI & Abdominal Exam: Tenderness (LUQ). absent: Distended, Firm - Neurological Exam Neurological exam: Alert, CN II-XII Intact, Oriented x3 - Psychiatric Exam Psychiatric exam: Normal Affect, Normal Mood - Skin Skin Exam: Normal Color, Warm Results - Vital Signs Recent Vital Signs: Last Vital Signs Temp 97.9 F 12/21/18 09:33 Pulse 104 H 02/04/19 09:33 Resp 22 12/21/18 09:33 BP 178/97 H 12/21/18 09:33 Pulse Ox 99 12/21/18 12:10 - Labs Result Diagrams: 12/21/18 11:04 12/21/18 11:04 Labs: Laboratory Results - last 24 hr 12/21/18 12/21/18 12/21/18 11:04 11:04 11:04 WBC 20.4 H RBC 5.52 H Hgb 15.6 Hct 46.3 MCV 83.9 MCH 28.3 MCHC 33.7 RDW 13.8 Plt Count 365 MPV 8.9 Neut % (Auto) 89.7 H Lymph % (Auto) 7.2 L [place] % (Auto) 2.6 Eos % (Auto) 0.0 Baso % (Auto) 0.5 Neut # (Auto) 18.3 H Lymph # (Auto) 1.5 [place] # (Auto) 0.5 Eos # (Auto) 0.0 Baso # (Auto) 0.1 Neutrophils % (Manual) 87 H Lymphocytes % (Manual) 9 L Monocytes % (Manual) 4 Platelet Estimate Normal Sodium 134 Potassium 5.8 H Chloride 93 L Carbon Dioxide 23 Anion Gap 23 H BUN 37 H Creatinine 1.4 H Est GFR ( Amer) 47 Est GFR (Non-Af Amer) 39 Random Glucose 270 H D Calcium 9.9 Total Bilirubin 2.1 H AST 42 H D ALT 11 Alkaline Phosphatase 134 H Total Protein 9.3 H Albumin 5.4 H Globulin 3.9 Albumin/Globulin Ratio 1.4 Lipase 56 Urine Color Yellow Urine Clarity Hazy Urine pH 5.0 Ur Specific [place] 1.026 Urine Protein 3+ H Urine Glucose (UA) 2+ H Urine Ketones 1+ H Urine Blood 1+ H Urine Nitrate Negative Urine Bilirubin Negative Urine Urobilinogen Normal Ur Leukocyte Esterase Neg Urine WBC (Auto) 2 Urine RBC (Auto) 3 Ur Squamous Epith Cells 2 Urine Bacteria Rare Hyaline Casts 6-10 H Urine Opiates Screen Urine Methadone Screen Ur Barbiturates Screen Ur Phencyclidine Scrn Ur Amphetamines Screen U Benzodiazepines Scrn U Oth Cocaine Metabols U Cannabinoids Screen 12/21/18 11:04 WBC RBC Hgb Hct MCV MCH MCHC RDW Plt Count MPV Neut % (Auto) Lymph % (Auto) [place] % (Auto) Eos % (Auto) Baso % (Auto) Neut # (Auto) Lymph # (Auto) [place] # (Auto) Eos # (Auto) Baso # (Auto) Neutrophils % (Manual) Lymphocytes % (Manual) Monocytes % (Manual) Platelet Estimate Sodium Potassium Chloride Carbon Dioxide Anion Gap BUN Creatinine Est GFR ( Amer) Est GFR (Non-Af Amer) Random Glucose Calcium Total Bilirubin AST ALT Alkaline Phosphatase Total Protein Albumin Globulin Albumin/Globulin Ratio Lipase Urine Color Urine Clarity Urine pH Ur Specific [place] Urine Protein Urine Glucose (UA) Urine Ketones Urine Blood Urine Nitrate Urine Bilirubin Urine Urobilinogen Ur Leukocyte Esterase Urine WBC (Auto) Urine RBC (Auto) Ur Squamous Epith Cells Urine Bacteria Hyaline Casts Urine Opiates Screen Negative Urine Methadone Screen Negative Ur Barbiturates Screen Negative Ur Phencyclidine Scrn Negative Ur Amphetamines Screen Negative U Benzodiazepines Scrn Negative U Oth Cocaine Metabols Negative U Cannabinoids Screen Negative Assessment & Plan - Assessment and Plan (Free Text) Assessment: 58F noncompliant with DM rx admitted for diabetic gastroparesis and leukocytosis and ARF Plan Nausea Vomiting w/ LUQ pain likely 2/2 to Diabetic Gastroparesis -Pt noncompliant -Reglan 10 IVP TID 10min before each meal -ISS high protocol -Benadryl 12.5 PO q6 -GI consulted- Last f/u recs -Dont give Zofran or Phenergan due to QTC prolongation Leukocytosis w/ L shift -f/u BC and UC, f/u AM CBC -Rapid flu neg -afebrile -likely 2/2 to stress -Possible GI source- cover with IV abx -Cipro 200mg q12 IVPB -Flagyl 500mg q8 IVPB Acute Renal Failure -1.4 Cr elevated >30%from baseline -NS@146mL/hr IVF -Hold home naproxen -f/u AM CMP Hyperkalemia -ISS-High -Dena exalte STAT dose -f/u AM CMP Uncontrolled DM2 -for 24hrs will put on ISS high until Accucheks maintain euglycemia -Dr David Avelar consulted f/u recs -hold home DM rx -f/u AM TSH ,T4 ,Lipid Panel QTC prolongation -chronic -avoid zofran or phenergan Hx of Pancreatic Mass on Tail -CT pancreatic protocol tmrw pending AM Cr -This was supposed to be done in Jul 2018 as per f/u Hx of HTN -Toprol XL 50mg QD w/ holding parameters -hold home lisinopril Hx of Polysubstance Abuse -hold home dose of Zoloft -Last time used illicit drugs or drank ETOH 22 yrs ago Hx of GERD -PTX 40 IV qd Hx of Depression vs Anxiety -given by pcp for anxiety PPx -Heparin 5000u sc q8 -PTX 40 ivp qd -SCDs
--- NOTE | 2018-12-21 13:40 | RAD ---
Date of service: 12/21/2018 PROCEDURE: Radiographs of the chest and abdomen (obstructive series) HISTORY: abd pain COMPARISON: None available. TECHNIQUE: AP radiograph of the chest, with upright and supine radiographs of the abdomen. FINDINGS: Examination limited by habitus. CHEST: Heart size appears within normal limits. No focal consolidation, significant pleural effusion, or definite pneumothorax. Please note that chest x-ray has limited sensitivity for the detection of pulmonary masses. ABDOMEN AND PELVIS: Nonobstructive bowel gas pattern. No definite free air. Osseous demineralization. Degenerative changes. IMPRESSION: No acute findings identified.
[2018-12-21] MEDS: metroNIDAZOLE IV 500 mg/100 ml 500 MG/100 ML BAG IVPB SCH ×2 (13:42→20:26)
[2018-12-21] MEDS: Ciprofloxacin 400mg/200ml D5W 400 MG/200 ML BAG IVPB SCH (13:42)
[2018-12-21] MEDS: Sodium Chloride 0.9% 1,000 ML IV SCH ×2 (13:43→22:45)
[2018-12-21] MEDS ORDERED: Sodium Chloride 0.9% 1,000 ML ONE (13:50)
[2018-12-21] MEDS ORDERED: metroNIDAZOLE IV 500 mg/100 ml 500 MG/100 ML BAG ONE (13:50)
[2018-12-21] MEDS ORDERED: Sod Polystyrene Sulf 15 gm/60 ml Susp ONE (13:50)
[2018-12-21] MEDS ORDERED: Ciprofloxacin 400mg/200ml D5W 400 MG/200 ML BAG IVPB ONE (13:50)
[2018-12-21] MEDS: (Novolog) Insulin Aspart, Recombinant 100 u/ml 10 ml vial SC SCH ×2 (16:30→21:30)
[2018-12-21 17:18] VITALS: RESP 20
[2018-12-21] MEDS: (Lantus) Insulin Glargine, Recombinant SC SCH (21:34)
[2018-12-22] MEDS: Ciprofloxacin 400mg/200ml D5W 400 MG/200 ML BAG IVPB SCH ×2 (00:07→12:19)
[2018-12-22] MEDS: DiphenhydrAMINE 12.5 mg/5 ml LIQ UD (5 ml) PO PRN ×3 (01:12→14:47)
[2018-12-22] MEDS: metroNIDAZOLE IV 500 mg/100 ml 500 MG/100 ML BAG IVPB SCH ×3 (05:00→21:19)
[2018-12-22 07:22] LABS: BASO # 0.1 K/uL (0.0-0.2); BASO % 0.5 % (0.0-2.0); EOS % 0.1 % (0.0-4.0); LYMPH # 2.6 K/uL (1.0-4.3); LYMPH % 23.6 % (20.0-40.0); MEAN CELL VOLUME 84.5 fL (81.0-99.0); MEAN CORPUSCULAR HEMOGLOBIN 28.8 pg (27.0-31.0); MEAN CORPUSCULAR HGB CONC 34.1 g/dL (33.0-37.0); MEAN PLATELET VOLUME 8.5 fL (7.2-11.7); MONO # 0.6 K/uL (0.0-0.8); MONO % 5.2 % (0.0-10.0); NEUT # 7.8 K/uL (1.8-7.0); NEUT % 70.6 % (50.0-75.0); RBC 4.45 Mil/uL (3.80-5.20); RED CELL DISTRIBUTION WIDTH 13.5 % (11.5-14.5)
[2018-12-22 07:35] LABS: ALB/GLOB RATIO 1.3 (1.0-2.1); ALBUMIN 3.4 g/dL (3.5-5.0); ALT/SGPT 12 U/L (9-52); AST/SGOT 16 U/L (14-36); BLOOD UREA NITROGEN 24 mg/dL (7-17); CALCIUM 8.7 mg/dl (8.6-10.4); GFR NON-AFRICAN AMERICAN > 60; HDL CHOLESTEROL 39 mg/dL (30-70)
[2018-12-22 07:36] LABS: LDL CHOLESTEROL 115 mg/dL (0-129)
--- NOTE | 2018-12-22 07:47 | CP.PCM.PN ---
Subjective - Date & Time of Evaluation Date of Evaluation: 12/22/18 Time of Evaluation: 07:43 - Subjective Subjective: HOSPITALIST SERVICE Patient seen and examined at bedside, complains of persistent nausea but no vomiting, as well as food intolerance. Patient reports mild improvement with current anti-nausea medications but has not gotten any full relief of symptoms. Denies chest pain shortness of breath, fevers, chills, chest pain, diarrhea, still no bowel movement reported. Objective - Vital Signs/Intake and Output Vital Signs (last 24 hours): Temp Pulse Resp BP Pulse Ox 99 F 104 H 20 158/79 H 94 L 12/22/18 00:00 12/22/18 00:00 12/22/18 00:00 12/22/18 03:40 12/22/18 05:09 Intake and Output: 12/22/18 12/22/18 06:59 18:59 Intake Total 800 Balance 800 - Medications Medications: Current Medications Acetaminophen (Tylenol 325mg Tab) 650 mg PO Q6 PRN PRN Reason: Fever >100.4 F Diphenhydramine HCl (Benadryl) 12.5 mg PO Q6 PRN PRN Reason: Nausea/Vomiting Last Admin: 12/22/18 01:12 Dose: 12.5 mg Docusate Sodium (Colace) 100 mg PO TID [facility] Last Admin: 12/21/18 18:00 Dose: Not Given Heparin Sodium (Porcine) (Heparin) 5,000 units SC Q8 JP Last Admin: 12/22/18 06:29 Dose: 5,000 units Sodium Chloride (Sodium Chloride 0.9%) 1,000 mls @ 100 mls/hr IV .Q10H [facility] Last Admin: 12/21/18 22:45 Dose: 100 mls/hr Ciprofloxacin (Cipro 400mg/200ml Dsw) 400 mg in 200 mls @ 133 mls/hr IVPB Q12H [facility]; Protocol Last Admin: 12/22/18 00:07 Dose: 133 mls/hr Metronidazole (Flagyl) 500 mg in 100 mls @ 100 mls/hr IVPB Q8H [facility]; Protocol Last Admin: 12/22/18 05:00 Dose: 100 mls/hr Insulin Aspart (Novolog) 0 unit SC ACHS [facility] Last Admin: 12/21/18 21:30 Dose: Not Given Insulin Glargine (Lantus) 6 unit SC HS [facility] Last Admin: 12/21/18 21:34 Dose: 6 units Metoclopramide HCl (Reglan) 10 mg IVP TIDAC [facility] Last Admin: 12/22/18 06:34 Dose: 10 mg Metoprolol Succinate (Toprol Xl) 50 mg PO DAILY [facility] Pantoprazole Sodium (Protonix Inj) 40 mg IVP DAILY [facility] Pneumococcal Polyvalent Vaccine (Pneumovax 23 Vaccine) 0.5 ml IM .ONCE ONE Stop: 12/23/18 14:01 - Labs Labs: 12/22/18 07:03 12/22/18 07:03 APTT 28 SECONDS (21-34) 12/22/18 07:03 - Constitutional Appears: Non-toxic, No Acute Distress - Head Exam Head Exam: NORMAL INSPECTION - Eye Exam Eye Exam: EOMI, Normal appearance. absent: Scleral icterus - Neck Exam Neck Exam: absent: Lymphadenopathy, Thyromegaly - Respiratory Exam Respiratory Exam: Clear to Ausculation Bilateral, NORMAL BREATHING PATTERN. absent: Rales, Rhonchi, Wheezes, Respiratory Distress - Cardiovascular Exam Cardiovascular Exam: +S1, +S2 - GI/Abdominal Exam GI & Abdominal Exam: absent: Distended, Firm, Tenderness Additional comments: Mild LUQ tenderness - Neurological Exam Neurological Exam: CN II-XII Intact, Oriented x3 - Skin Skin Exam: Dry, Intact, Normal Color, Warm Assessment and Plan - Assessment and Plan (Free Text) Assessment: 58F noncompliant with DM rx admitted for diabetic gastroparesis and leukocytosis and ARF. Plan: Nausea Vomiting w/ LUQ pain likely 2/2 to Diabetic Gastroparesis -Pt noncompliant -Reglan 10 IVP TID 10min before each meal -Dr Hernandez consulted f/u recs Glargine 6 sc HS Insulin Aspart high protocol -Benadryl 12.5 PO q6 -GI consulted- Last f/u recs -Dont give Zofran or Phenergan due to QTC prolongation Leukocytosis w/ L shift -neg BC -WBCs downtrending, 20.4 (2/4) -> 11 (2/5) -UC (2/4) no growth -Rapid flu neg -afebrile -likely 2/2 to stress -Possible GI source- cover with IV abx -Cipro 200mg q12 IVPB -Flagyl 500mg q8 IVPB Acute Renal Failure resolved -normal Cr now -d/c fluids -Hold home naproxen Hyperkalemia resolved -ISS-High -Dena exalte STAT dose -K wnl 5.8 (2/4) -> 3.6 (2/5) Uncontrolled DM2 -Dr David Avelar consulted - recs appreciated -hold home DM rx -TSH ,T4 wnl -Triglycerides 154H QTC prolongation -chronic -avoid zofran or phenergan Hx of Pancreatic Mass on Tail -CT pancreatic protocol: 1cm @ tail, unchanged from last time, possible neoplasm -This was supposed to be done in Jul 2018 as per f/u Hx of HTN -Toprol XL 50mg QD w/ holding parameters -hold home lisinopril Hx of Polysubstance Abuse -Last time used illicit drugs or drank ETOH 22 yrs ago Hx of GERD -PTX 40 IV qd Hx of Depression vs Anxiety -Zoloft 100 mg PO qd -Atarax 25 mg PO hs PPx -Heparin 5000u sc q8 -PTX 40 ivp qd -SCDs dispo: d/c home tmrw likely
[2018-12-22] MEDS: (Novolog) Insulin Aspart, Recombinant 100 u/ml 10 ml vial SC SCH ×4 (07:54→21:29)
--- NOTE | 2018-12-22 08:06 | CON ---
DATE: 12/21/2018 ENDOCRINOLOGY CONSULT LOCATION: Room 351. HISTORY OF PRESENT ILLNESS: This is a 58-year-old female with known history of type 2 insulin-requiring diabetes, on combination of therapy, presenting here with a 3-day history of diffuse abdominal cramping and pain localized in the left upper quadrant and developed supervening nausea, dyspepsia, and vomiting, and is now being referred for diabetic evaluation and management. PAST MEDICAL HISTORY: As mentioned above, history of type 2 insulin-requiring diabetes, on a combination of oral hypoglycemic therapy, taking Amaryl 2 mg daily with metformin of 500 mg b.i.d. in combination with Toujeo of 30 units once daily with Trulicity given as 0.75 mg once weekly as given. 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 Ni has been following her very closely at this time. History of lumbar disk disease and associated radiculopathy with persistent lower back pain. Also admits to left hip osteoarthritis. She also has history of chronic gastritis and GERD. FAMILY HISTORY: Positive for diabetes and hypertension. Her father also succumbed from pancreatic and colon cancer, and a sister also had breast cancer with the brother having had prostate cancer. SOCIAL HISTORY: The patient admits to smoking a pack-a-day for over 15 years with significant history of drug abuse, using heroin and crack as noted. REVIEW OF SYSTEMS: Admits some generalized body weakness with episodic bouts of dizziness and lightheadedness, worse on the day of admission. Also admits to easy fatigability and tiredness with bifrontal headaches and visual blurring. No chest pain, palpitations, or PNDs. Her oral intake has been variable with nausea, dyspepsia, and episodic vomiting with diffuse abdominal pain localized in the left upper quadrant. Also admits to episodic bouts of loose watery diarrhea. PHYSICAL EXAMINATION: GENERAL: This is an overweight female, in no apparent distress. VITAL SIGNS: Blood pressure of 140/80, pulse of 70 beats per minute and regular, temperature 98, and respirations 20. Height is 5 feet 4 inches. Weight is 214 pounds. HEENT: Head, normocephalic. Eyes anicteric with pink conjunctivae. Funduscopy not possible at this time. Ears, nose, and throat otherwise normal. NECK: Supple. Thyroid gland is normal in size. No carotid bruits or cervical adenopathy. CARDIOPULMONARY: Has some adynamic precordium. S1 and S2 are rapid and regular. LUNGS: Clear to auscultation. ABDOMEN: Flat, soft with positive bowel sounds. EXTREMITIES: No peripheral edema. Pulses are +2 bilaterally. LABORATORY DATA: Her chemistry shows a BUN of 37, sodium 134, potassium 5.8, chloride 93, CO2 of 23, glucose 270, and creatinine 1.4. ASSESSMENT: This is a 58-year-old female with uncontrolled and decompensated type 2 insulin-requiring diabetes, presenting here with left upper quadrant pain and associated nausea, dyspepsia, and vomiting with episodic loose watery diarrhea, and is now being referred for diabetic evaluation and management. PLAN OF MANAGEMENT: As the patient is currently on the liquid diet, we will modify her insulin dose regimen accordingly. We will add basal dose of Lantus at a low dose of 6 units at bedtime daily to start tonight. We will modify the coverage scale using NovoLog insulin to be given before meals and at bedtime, and detailed orders have been given. After GI workup is completed, then we will switch her back over to a more physiologic basal and bolus insulin drug combination with Lantus and NovoLog modified accordingly as indicated. We will obtain a hemoglobin A1c to confirm her prior glycemic control, and baseline thyroid function studies will be ordered. We will continue the IV hydration with normal saline infusion as given. We will obtain serial chemistries and supplement accordingly as needed. We will follow with you. Cindy Hernandez MD
[2018-12-22 08:22] LABS: T4 9.53 ug/dL (5.5-11.0)
[2018-12-22] MEDS: Sodium Chloride 0.9% 1,000 ML IV SCH (09:43)
[2018-12-22] MEDS: Metoprolol Succinate 50 mg XL Tab PO SCH (10:01)
[2018-12-22] MEDS ORDERED: Iodixanol 320 MG/ML 100 ML BOTTLE IV ONE (10:38)
[2018-12-22 11:22] LABS: AMYLASE 41 U/L (30-110); LIPASE 84 U/L (23-300)
[2018-12-22] MEDS ORDERED: Sodium Chloride 0.9% 1,000 ML IV SCH (11:50)
[2018-12-22] MEDS ORDERED: Iohexol 240 (50 ml) PO ONE (12:30)
[2018-12-22 15:36] LABS: HEMOGLOBIN 12.8 g/dL (11.0-16.0)
--- NOTE | 2018-12-22 16:31 | CT ---
Pancreatic protocol CT Indication: f/u panc tail mass from 2017 Technique: Contiguous axial images of the abdomen without & with IV contrast utilizing pancreatic protocol. Coronal and Sagittal reformats generated and reviewed. This CT exam was performed using 1 or more of the following dose reduction techniques: Automated exposure control, adjustment of the MAA and/or kV according to patient size, and/or use of iterative reconstruction technique. Contrast: Oral contrast was administered. 90 mm omnipaque 300 mg injected. Radiation dose: Total exam DLP = 2610.16 MGy-cm. Comparison: CT abdomen and pelvis with IV contrast performed 08/24/18 Findings: Visualized portions of the heart appear within normal limits of size. Trace pericardial effusion. There is no visible consolidation, pleural effusion, or pneumothorax. 1 cm pancreatic tail enhancing nodule re-identified without significant interval change appreciated. The atrophy of the pancreas. Hypoattenuation of the liver compatible with hepatic steatosis. Too small to characterize bilateral renal hypodensities; statistically likely cysts. No obstructing calculi or hydronephrosis. The spleen, adrenal glands, and gallbladder appear unremarkable. The stomach is nondistended. The included upper abdominal bowel loops appear within normal limits of caliber without evidence of intestinal obstruction. There is no definite free air. Degenerative changes of the spine. Impression: 1 cm pancreatic tail enhancing nodule re-identified without significant interval change. 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 Additional findings as above.
[2018-12-22] MEDS: (Lantus) Insulin Glargine, Recombinant SC SCH (21:28)
[2018-12-23] MEDS: Ciprofloxacin 400mg/200ml D5W 400 MG/200 ML BAG IVPB SCH ×2 (00:52→12:00)
--- NOTE | 2018-12-23 02:13 | PN ---
DATE: 12/22/2018 ENDOCRINOLOGY FOLLOWUP NOTE LOCATION: Room 351. This is a 58-year-old female with recent uncontrolled type 2 insulin-requiring diabetes, now being followed closely for metabolic management. Her glycemic levels are fluctuating as expected especially with the liquid diet as given with only Humalog insulin as ordered. She also has a known recent diagnosis of a mass in the tail of the pancreas and is being followed closely by GI i.e. Dr. Ni with recent upper and lower endoscopies undertaken thereof. Her glycemic levels are fluctuating, and the latest chemistries are actually pending at this time, but the initial chemistry showed BUN of 37, sodium 134, potassium 5.8, chloride 93, CO2 of 23, glucose 270, and creatinine 1.4. So at this time, because of the ongoing liquid diet and also the ongoing GI workup has to be undertaken, we will keep her on the above mentioned low-dose algorithm using NovoLog insulin as given. We will continue also the Lantus given as 6 units subcu at bedtime daily as given. After GI workup is completed, then we will advance her and switch her over to a more physiologic basal and bolus insulin drug combination with NovoLog given before meals and Lantus given at higher dosing regimen as indicated. We will continue the IV hydration as given and obtain serial chemistries accordingly. We will follow. Cindy Hernandez MD
[2018-12-23] MEDS: metroNIDAZOLE IV 500 mg/100 ml 500 MG/100 ML BAG IVPB SCH (04:16)
[2018-12-23] MEDS: (Novolog) Insulin Aspart, Recombinant 100 u/ml 10 ml vial SC SCH ×2 (07:39→11:22)
[2018-12-23 07:47] LABS: BASO # 0.1 K/uL (0.0-0.2); BASO % 0.5 % (0.0-2.0); EOS % 0.3 % (0.0-4.0); HEMOGLOBIN 12.4 g/dL (11.0-16.0); LYMPH # 3.3 K/uL (1.0-4.3); LYMPH % 33.4 % (20.0-40.0); MEAN CELL VOLUME 84.5 fL (81.0-99.0); MEAN CORPUSCULAR HEMOGLOBIN 28.6 pg (27.0-31.0); MEAN CORPUSCULAR HGB CONC 33.9 g/dL (33.0-37.0); MEAN PLATELET VOLUME 8.7 fL (7.2-11.7); MONO # 0.5 K/uL (0.0-0.8); MONO % 5.5 % (0.0-10.0); NEUT % 60.3 % (50.0-75.0); RBC 4.32 Mil/uL (3.80-5.20); RED CELL DISTRIBUTION WIDTH 13.6 % (11.5-14.5); WHITE BLOOD COUNT 9.9 K/uL (4.8-10.8)
[2018-12-23 07:48] VITALS: BP 120/71; PULSE 81; TEMP 98; O2SAT 96
[2018-12-23 08:06] LABS: ALB/GLOB RATIO 1.3 (1.0-2.1); ALBUMIN 3.1 g/dL (3.5-5.0); ALT/SGPT 30 U/L (9-52); AST/SGOT 31 U/L (14-36); BLOOD UREA NITROGEN 21 mg/dL (7-17); CALCIUM 8.7 mg/dl (8.6-10.4); GFR NON-AFRICAN AMERICAN > 60
[2018-12-23] MEDS: Metoprolol Succinate 50 mg XL Tab PO SCH (09:32)
[2018-12-23] MEDS ORDERED: Potassium Chloride 20 mEq/15 ml LIQ UD PO STA (09:36)
--- NOTE | 2018-12-23 10:40 | CP.PCM.DIS ---
Provider - Provider Date of Admission: 12/21/18 12:10 Attending physician: Manuel Raza DO Consults: 12/21/18 13:27 Gastroenterology Consult Routine Comment: DM gastroparesis, hx gastritis, WBCs >22 fr 2 days Consulting Provider: Alicia Ni Consulting Physician: Alicia Ni Reason for Consult: hx of pancreatic tail mass 12/21/18 14:52 Endocrinology Consult Routine Comment: uncontrolled dm2 Consulting Provider: Cindy Hernandez Consulting Physician: Cindy Hernandez Reason for Consult: uncontrolled dm2 Time Spent in preparation of Discharge (in minutes): 45 Diagnosis - Discharge Diagnosis (1) Diabetic gastroparesis Status: Resolved (2) Abdominal pain Status: Resolved (3) Vomiting Status: Resolved (4) Hypertension Status: Chronic (5) Uncontrolled diabetes mellitus Status: Chronic Hospital Course - Lab Results Lab Results: Micro Results 12/21/18 14:36 Blood Blood Culture - Preliminary NO GROWTH AFTER 24 HOURS 12/21/18 14:36 Blood Blood Culture - Preliminary NO GROWTH AFTER 24 HOURS 12/21/18 13:21 Urine,Clean Catch Urine Culture - Final No Growth (<1,000 CFU/ML) Most Recent Lab Values WBC 9.9 K/uL (4.8-10.8) 12/23/18 07:35 RBC 4.32 Mil/uL (3.80-5.20) 12/23/18 07:35 Hgb 12.4 g/dL (11.0-16.0) 12/23/18 07:35 Hct 36.5 % (34.0-47.0) 12/23/18 07:35 MCV 84.5 fL (81.0-99.0) 12/23/18 07:35 MCH 28.6 pg (27.0-31.0) 12/23/18 07:35 MCHC 33.9 g/dL (33.0-37.0) 12/23/18 07:35 RDW 13.6 % (11.5-14.5) 12/23/18 07:35 Plt Count 269 K/uL (130-400) 12/23/18 07:35 MPV 8.7 fL (7.2-11.7) 12/23/18 07:35 Neut % (Auto) 60.3 % (50.0-75.0) 12/23/18 07:35 Lymph % (Auto) 33.4 % (20.0-40.0) 12/23/18 07:35 [place] % (Auto) 5.5 % (0.0-10.0) 12/23/18 07:35 Eos % (Auto) 0.3 % (0.0-4.0) 12/23/18 07:35 Baso % (Auto) 0.5 % (0.0-2.0) 12/23/18 07:35 Neut # (Auto) 6.0 K/uL (1.8-7.0) 12/23/18 07:35 Lymph # (Auto) 3.3 K/uL (1.0-4.3) 12/23/18 07:35 Letcher # (Auto) 0.5 K/uL (0.0-0.8) 12/23/18 07:35 Eos # (Auto) 0.0 K/uL (0.0-0.7) 12/23/18 07:35 Baso # (Auto) 0.1 K/uL (0.0-0.2) 12/23/18 07:35 Neutrophils % (Manual) 87 % (50-75) H 12/21/18 11:04 Lymphocytes % (Manual) 9 % (20-40) L 12/21/18 11:04 Monocytes % (Manual) 4 % (0-10) 12/21/18 11:04 Platelet Estimate Normal (NORMAL) 12/21/18 11:04 APTT 28 SECONDS (21-34) 12/22/18 07:03 Sodium 133 mmol/L (132-148) 12/23/18 07:35 Potassium 3.4 mmol/L (3.6-5.2) L 12/23/18 07:35 Chloride 99 mmol/L (98-107) 12/23/18 07:35 Carbon Dioxide 28 mmol/L (22-30) 12/23/18 07:35 Anion Gap 9 (10-20) L 12/23/18 07:35 BUN 21 mg/dL (7-17) H 12/23/18 07:35 Creatinine 0.9 mg/dL (0.7-1.2) 12/23/18 07:35 Est GFR ( Amer) > 60 12/23/18 07:35 Est GFR (Non-Af Amer) > 60 12/23/18 07:35 POC Glucose (mg/dL) 217 mg/dL (65-110) H 12/23/18 07:12 Random Glucose 203 mg/dL (65-105) H 12/23/18 07:35 Hemoglobin A1c 7.3 % (4.2-6.5) H 12/22/18 07:00 Calcium 8.7 mg/dl (8.6-10.4) 12/23/18 07:35 Phosphorus 3.0 mg/dL (2.5-4.5) 12/23/18 07:35 Magnesium 1.5 mg/dL (1.6-2.3) L 12/23/18 07:35 Total Bilirubin 0.4 mg/dL (0.2-1.3) 12/23/18 07:35 AST 31 U/L (14-36) 12/23/18 07:35 ALT 30 U/L (9-52) 12/23/18 07:35 Alkaline Phosphatase 81 U/L (38-126) 12/23/18 07:35 Total Protein 5.6 g/dL (6.3-8.3) L 12/23/18 07:35 Albumin 3.1 g/dL (3.5-5.0) L 12/23/18 07:35 Globulin 2.5 gm/dL (2.2-3.9) 12/23/18 07:35 Albumin/Globulin Ratio 1.3 (1.0-2.1) 12/23/18 07:35 Triglycerides 154 mg/dL (0-149) H 12/22/18 07:03 Cholesterol 185 mg/dL (0-199) 12/22/18 07:03 LDL Cholesterol Direct 115 mg/dL (0-129) 12/22/18 07:03 HDL Cholesterol 39 mg/dL (30-70) 12/22/18 07:03 Amylase 41 U/L (30-110) 12/22/18 07:00 Lipase 84 U/L (23-300) 12/22/18 07:00 Carcinoembryonic Ag 2.6 ng/mL (0-3.0) 12/22/18 07:00 CA 19-9 Antigen < 1.4 U/mL (0-37) 12/22/18 07:00 CA 125 Antigen 10.8 U/mL (0-35) 12/22/18 07:00 Thyroxine (T4) 9.53 ug/dL (5.5-11.0) 12/22/18 07:03 TSH 3rd Generation 1.64 mIU/L (0.46-4.68) 12/22/18 07:03 Urine Color Yellow (YELLOW) 12/21/18 11:04 Urine Clarity Hazy (Clear) 12/21/18 11:04 Urine pH 5.0 (5.0-8.0) 12/21/18 11:04 Ur Specific [place] 1.026 (1.003-1.030) 12/21/18 11:04 Urine Protein 3+ mg/dL (NEGATIVE) H 12/21/18 11:04 Urine Glucose (UA) 2+ mg/dL (Normal) H 12/21/18 11:04 Urine Ketones 1+ mg/dL (NEGATIVE) H 12/21/18 11:04 Urine Blood 1+ (NEGATIVE) H 12/21/18 11:04 Urine Nitrate Negative (NEGATIVE) 12/21/18 11:04 Urine Bilirubin Negative (NEGATIVE) 12/21/18 11:04 Urine Urobilinogen Normal mg/dL (0.2-1.0) 12/21/18 11:04 Ur Leukocyte Esterase Neg Luis Miguel/uL (Negative) 12/21/18 11:04 Urine WBC (Auto) 2 /hpf (0-5) 12/21/18 11:04 Urine RBC (Auto) 3 /hpf (0-3) 12/21/18 11:04 Ur Squamous Epith Cells 2 /hpf (0-5) 12/21/18 11:04 Urine Bacteria Rare (<OCC) 12/21/18 11:04 Hyaline Casts 6-10 /lpf (0-2) H 12/21/18 11:04 Urine Opiates Screen Negative (NEGATIVE) 12/21/18 11:04 Urine Methadone Screen Negative (NEGATIVE) 12/21/18 11:04 Ur Barbiturates Screen Negative (NEGATIVE) 12/21/18 11:04 Ur Phencyclidine Scrn Negative (NEGATIVE) 12/21/18 11:04 Ur Amphetamines Screen Negative (NEGATIVE) 12/21/18 11:04 U Benzodiazepines Scrn Negative (NEGATIVE) 12/21/18 11:04 U Oth Cocaine Metabols Negative (NEGATIVE) 12/21/18 11:04 U Cannabinoids Screen Negative (NEGATIVE) 12/21/18 11:04 - Hospital Course Hospital Course: cc: "my stomach hurts i dont take my diabetes pills help me" 58F with hx of DM, HTN, L/s Radiculopathy, Left hip arthritis, GERD, Pancreatic tail Mass (07/2018) presents to the Ed with a 3 day hx of pressure like and crampy abdominal pains, worse in the LUQ. She complains of nausea, vomiting, and acute onset of her symptoms since she stopped taking her diabetes medications this past week. Patient says she has not had a normal bm in over 4 days and yesterday had very small amount of diarrhea. Pt says she follows up with Dr Ni her GI for which she had a recent EGD. She also had a recent dx of a pancreatic tail mass in July and had CT imaging done. Pt says this abdominal pain has come before but this one feels most severe. Of note pt came to [facility] ED yesterday with the same symptoms and a WBC 22,000 with unknown source of infection. She was treated with Reglan and Zofran with some relief. 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 , GI: Last Allergies= NDKA PMH: DM, HTN, L/s Radiculopathy, Left hip arthritis, GERD, Pancreatic tail Mass (07/2018) PSH: Breast biopsy FamilyHx * Mom=DM * Dad=Pancreatic CA, Colon CA * Sister= Breast CA * Brother= Prostate CA SocHx: 15 pk yr, hx of heroin and crack abuse HomeRx: Vistaril 1 qd Toprol ER 50 QD Glymeperide 2 QD Metformin 500 BID Trulicity 0.75 q7d Toujea 30 qd Reglan 2.5 TID Omeprazole 25 QD Enalapril 2.5 QD Code Satus: DNR/DNI Contact: Hermelinda Navarro [phone], Sister Patient was seen and examined at 11:45 AM 12/23/18 351 B Upon FULL ROS: NO abdominal pain Nausea has improved significantly and she was able to have broth this morning without any vomiting or abdominal pain She had a large bowel movement last night that she stated was soft to watery NO chest pain NO palpitations NO dysphagia NO odynophagia NO buring/pain with urination NO new changes in vision NO new changes in hearing NO parethesias NO headaches NO other complaints upon FULL ROS Assessments: 1). N/V secondary to history of Diabetic Gastroparesis (see Gastric Emptying Scan 07/31/17) secondary to recently not taking her medications consistently: moving her bowels and tolerating clear liquid diet 2). Leukocytosis: resolved, NO fevers 3). Acute Renal Failure: likely secondary to N/V. Resolved with IVF 4). Hyperkalemia: given 1 dose of Kayexalate upon admission and has resolved 5). Uncontrolled DM 2: history of recently not taking her medications. Stressed compliance of medications and that it can worsen the already present history of gastroparesis 6). Hx QTc prolongation 7). Hx Pancreatic Tail Nodule: repeat CT Abdomen/Pelvis with Pancreatic Protocol upon this admission indicated that the nodule is stable when compared to July 2017. Explained this to her and that she will have to follow this up with her PMD Dr. Daniel. 8). Hx HTN: controlled 9). Remote Hx Polysubstance Abuse: UDS upon admission is negative 10). Hx GERD 11). Hx Depression/Anxiety: confirmed this history with patient and that she is followed by Psychiatrist Dr. Rodas at [place] and she will follow up with her. Patients presenting symptoms have improved. She is tolerating clear liquid diet She is now moving her bowels Confirmed with her that she has her home medications She understands that she is being given new dosage/prescription for Reglan and that she is to take it 30 minutes before breakfast, lunchg, and dinner She understands to follow up with PMD Dr. Daniel for managment/coordination of her health care and Pancreatic Nodule and with her Psychiatrist Dr. Rodas The following instructions were explained to the patient and copy will need to be provided to her upon discharge: 1). Please continue to take the following home medications (which you stated that you had enough of) as instructed by your physicians: Zoloft Hydroxyzine Toprol Glimepiride Metformin Trulicity Enalapril Protonix Toujeo 2). You were given new prescription for Reglan. Please take 5 mg by mouth 30 minutes before breakfast, lunch, and dinner Reglan 5 mg, 1 tablet by mouth 30 minutes before breakfast, lunch, and dinner, Dispense #[id number] 3). Please make sure to schedule follow up with your Primary Care Physician Dr. Daniel in the next 7 to 10 days for coordination of your health care as well as further management of your Pancreatic Nodule which CT Scan done during this admission indicated had not changed in size. Please bring these instructions with you to your appointment with Dr. Daniel for his review. 4). Please follow up with your Psychiatrists Dr. Rodas as instructed by her. 5). Please follow up with Refresh Technician Dr. Ni for your history of Diabetic Gastroparesis as instructed by him. 6). Please continue to advance your diet from clear liquids as tolerated. 7). You may take over the counter (does not require a prescription) Diphenhydramine 12.5 mg 1 tablet by mouth every 6 hours ONLY NEEDED for nause. Please note that this medication can make you lightheaded/dizzy so please be careful. 8). Please stay well hydrated with water. 9). Please take care and be well. Subhash Russ D.O. this is a summary please refer to [facility] for complete records Discharge Exam - Head Exam Head Exam: NORMAL INSPECTION - Eye Exam Eye Exam: EOMI, Normal appearance - Additional Findings Additional findings: General: AAOX3, NAD HEENT: NCA, Pupils are round/equal/reactive to light, NO lymphadenopathy, NO thyromegaly, NO pharyngeal erythema/exudate Cardio: NS1 and NS2, NO M/R/G Resp: CTA B/L, NO R/R/W GI: BSx4, Soft, Central Obesity, NT, NO HSM, NO guarding/rebound tenderness Extremities: NO edema, Capillary refill is 2 seconds, Pulses are strong and equal Neuro: CN II through XII are grossly intact Discharge Plan - Discharge Medications Prescriptions: Metoclopramide HCl [Reglan] 5 mg PO TID #90 tablet - Follow Up Plan Condition: GUARDED Disposition: HOME/ ROUTINE Instructions: Nausea and Vomiting, Adult (DC), Metoclopramide, Acute Abdominal Pain (DC), Acute Abdominal Pain (GEN) Additional Instructions: The following instructions were explained to the patient and copy will need to be provided to her upon discharge: 1). Please continue to take the following home medications (which you stated that you had enough of) as instructed by your physicians: Zoloft Hydroxyzine Toprol Glimepiride Metformin Trulicity Enalapril Protonix Toujeo 2). You were given new prescription for Reglan. Please take 5 mg by mouth 30 minutes before breakfast, lunch, and dinner Reglan 5 mg, 1 tablet by mouth 30 minutes before breakfast, lunch, and dinner, Dispense #90 3). Please make sure to schedule follow up with your Primary Care Physician Dr. Daniel in the next 7 to 10 days for coordination of your health care as well as further management of your Pancreatic Nodule which CT Scan done during this admission indicated had not changed in size. Please bring these instructions with you to your appointment with Dr. Daniel for his review. 4). Please follow up with your Psychiatrists Dr. Rodas as instructed by her. 5). Please follow up with Refresh Technician Dr. Ni for your history of Diabetic Gastroparesis as instructed by him. 6). Please continue to advance your diet from clear liquids as tolerated. 7). You may take over the counter (does not require a prescription) Diphenhydramine 12.5 mg 1 tablet by mouth every 6 hours ONLY NEEDED for nause. Please note that this medication can make you lightheaded/dizzy so please be careful. 8). Please stay well hydrated with water. 9). Please take care and be well. Subhash Russ D.O.
--- NOTE | 2018-12-23 11:18 | CP.PCM.CON ---
History of Present Illness - History of Present Illness History of Present Illness: GI Consult Note for Dr. Ni HPI: 58F with PMHx of DM, HTN, GERD, Pancreatic tail Mass (07/2018) presented to the ED on 12/21 with upper abdominal pain x 3 days along with nausea and vomiting. Patient states diabetic gastroparesis has happened to her about twice a year since 2013, and this episode is no different than the others in symptoms and intensity. Patient sees Dr. Castillo for primary care and does not understand why this happens to her despite having good blood glucose control; she states at home blood glucose has been in the 150s even up until admission. Per medical records, the day before admission, patient visited the ER w/ the same sx and was found to have WBC of 22, with an unknown source of infection. Also per records patient has not been compliant with diabetes medications for the past week. Today per primary team, patient is to be discharged. Patient's nausea and vomiting has resolved. She just feels slightly lightheaded. Her abdomen feels "empty" and patient endorses some hunger. She is "almost normal." Last time she vomited was clear foam yesterday. PMHx: as stated above PSHx: breast bx FHx: dad w/ pancreatic and colon CA, sister w/ breast CA, brother w/ prostate CA SocHx: 15 pack year tobacco hx, heroin, crack Home rx: see admission H&P and MAR Allergies: NKDA Past Patient History - Infectious Disease Hx of Infectious Diseases: None - Past Medical History & Family History Past Medical History?: Yes - Past Social History Smoking Status: Light Smoker < 10 Cigarettes Daily - CARDIAC Hx Hypertension: Yes - PULMONARY Hx Respiratory Disorders: No Hx Tuberculosis: No - NEUROLOGICAL Hx Seizures: No - HEENT Hx HEENT Problems: No - RENAL Hx Chronic Kidney Disease: No - ENDOCRINE/METABOLIC Hx Diabetes Mellitus Type 2: Yes - HEMATOLOGICAL/ONCOLOGICAL Hx Human Immunodeficiency Virus (HIV): No - INTEGUMENTARY Hx Dermatological Problems: No - MUSCULOSKELETAL/RHEUMATOLOGICAL Hx Arthritis: Yes (back) - GASTROINTESTINAL Hx Gastritis: Yes - GENITOURINARY/GYNECOLOGICAL Hx Sexually Transmitted Disorders: No - PSYCHIATRIC Hx Depression: Yes Hx Substance Use: No - SURGICAL HISTORY Hx Surgeries: Yes - ANESTHESIA Hx Anesthesia: Yes Hx Anesthesia Reactions: No Hx Malignant Hyperthermia: No Meds Allergies/Adverse Reactions: Allergies Allergy/AdvReac Type Severity Reaction Status Date / Time No Known Allergies Allergy Verified 12/21/18 09:29 - Medications Medications: Current Medications Acetaminophen (Tylenol 325mg Tab) 650 mg PO Q6 PRN PRN Reason: Fever >100.4 F Diphenhydramine HCl (Benadryl) 12.5 mg PO Q6 PRN PRN Reason: Nausea/Vomiting Last Admin: 12/22/18 14:47 Dose: 12.5 mg Docusate Sodium (Colace) 100 mg PO TID [facility] Last Admin: 12/23/18 09:32 Dose: 100 mg Enalapril Maleate (Vasotec) 2.5 mg PO Q24H [facility] Last Admin: 12/22/18 19:53 Dose: 2.5 mg Heparin Sodium (Porcine) (Heparin) 5,000 units SC Q8 [facility] Last Admin: 12/23/18 06:01 Dose: 5,000 units Hydroxyzine HCl (Atarax) 25 mg PO HS [facility] Last Admin: 12/22/18 21:19 Dose: 25 mg Ciprofloxacin (Cipro 400mg/200ml Dsw) 400 mg in 200 mls @ 133 mls/hr IVPB Q12H [facility]; Protocol Last Admin: 12/23/18 00:52 Dose: 133 mls/hr Metronidazole (Flagyl) 500 mg in 100 mls @ 100 mls/hr IVPB Q8H [facility]; Protocol Last Admin: 12/23/18 04:16 Dose: 100 mls/hr Insulin Aspart (Novolog) 0 unit SC ACHS [facility] Last Admin: 12/23/18 07:39 Dose: Not Given Insulin Glargine (Lantus) 6 unit SC HS [facility] Last Admin: 12/22/18 21:28 Dose: 6 units Metoclopramide HCl (Reglan) 10 mg IVP TIDAC [facility] Last Admin: 12/23/18 08:10 Dose: Not Given Metoprolol Succinate (Toprol Xl) 50 mg PO DAILY [facility] Last Admin: 12/23/18 09:32 Dose: 50 mg Pantoprazole Sodium (Protonix Inj) 40 mg IVP DAILY [facility] Last Admin: 12/23/18 09:32 Dose: 40 mg Pneumococcal Polyvalent Vaccine (Pneumovax 23 Vaccine) 0.5 ml IM .ONCE ONE Stop: 12/23/18 14:01 Rosuvastatin Calcium (Crestor) 5 mg PO [facility] Last Admin: 12/22/18 21:19 Dose: 5 mg Sertraline HCl (Zoloft) 100 mg PO DAILY [facility] Physical Exam - Constitutional Appears: Well, Non-toxic Additional comments: Obese female resting in bed in NAD - Head Exam Head Exam: ATRAUMATIC, NORMAL INSPECTION - Eye Exam Eye Exam: EOMI, Normal appearance - Neck Exam Neck exam: Positive for: Normal Inspection - Respiratory Exam Respiratory Exam: Clear to Auscultation Bilateral, NORMAL BREATHING PATTERN - Cardiovascular Exam Cardiovascular Exam: REGULAR RHYTHM - GI/Abdominal Exam GI & Abdominal Exam: Normal Bowel Sounds, Soft, Tenderness (slight TTP epigastric) - Extremities Exam Extremities exam: Positive for: calf tenderness - Neurological Exam Neurological exam: Alert, Oriented x3 - Psychiatric Exam Psychiatric exam: Normal Affect, Normal Mood - Skin Skin Exam: Dry, Intact, Normal Color, Warm Results - Vital Signs Recent Vital Signs: Last Vital Signs Temp 98.0 F 12/23/18 07:46 Pulse 81 12/23/18 07:46 Resp 20 12/23/18 07:46 BP 120/71 12/23/18 07:46 Pulse Ox 96 12/23/18 08:51 - Labs Result Diagrams: 12/23/18 07:35 12/23/18 07:35 Labs: Laboratory Results - last 24 hr 12/22/18 12/22/18 12/22/18 07:00 07:03 11:24 WBC RBC Hgb 12.8 D Hct MCV MCH MCHC RDW Plt Count MPV Neut % (Auto) Lymph % (Auto) [place]field % (Auto) Eos % (Auto) Baso % (Auto) Neut # (Auto) Lymph # (Auto) [place]field # (Auto) Eos # (Auto) Baso # (Auto) Sodium Potassium Chloride Carbon Dioxide Anion Gap BUN Creatinine Est GFR ( Amer) Est GFR (Non-Af Amer) POC Glucose (mg/dL) 220 H Random Glucose Calcium Phosphorus Magnesium Total Bilirubin AST ALT Alkaline Phosphatase Total Protein Albumin Globulin Albumin/Globulin Ratio Amylase 41 Lipase 84 Carcinoembryonic Ag 2.6 CA 19-9 Antigen < 1.4 CA 125 Antigen 10.8 12/22/18 12/22/18 12/23/18 16:22 21:27 07:12 WBC RBC Hgb Hct MCV MCH MCHC RDW Plt Count MPV Neut % (Auto) Lymph % (Auto) [place] % (Auto) Eos % (Auto) Baso % (Auto) Neut # (Auto) Lymph # (Auto) [place]field # (Auto) Eos # (Auto) Baso # (Auto) Sodium Potassium Chloride Carbon Dioxide Anion Gap BUN Creatinine Est GFR ( Amer) Est GFR (Non-Af Amer) POC Glucose (mg/dL) 259 H 251 H 217 H Random Glucose Calcium Phosphorus Magnesium Total Bilirubin AST ALT Alkaline Phosphatase Total Protein Albumin Globulin Albumin/Globulin Ratio Amylase Lipase Carcinoembryonic Ag CA 19-9 Antigen CA 125 Antigen 12/23/18 12/23/18 07:35 07:35 WBC 9.9 RBC 4.32 Hgb 12.4 Hct 36.5 MCV 84.5 MCH 28.6 MCHC 33.9 RDW 13.6 Plt Count 269 MPV 8.7 Neut % (Auto) 60.3 Lymph % (Auto) 33.4 [place]field % (Auto) 5.5 Eos % (Auto) 0.3 Baso % (Auto) 0.5 Neut # (Auto) 6.0 Lymph # (Auto) 3.3 Garfield # (Auto) 0.5 Eos # (Auto) 0.0 Baso # (Auto) 0.1 Sodium 133 Potassium 3.4 L Chloride 99 Carbon Dioxide 28 Anion Gap 9 L BUN 21 H Creatinine 0.9 Est GFR ( Amer) > 60 Est GFR (Non-Af Amer) > 60 POC Glucose (mg/dL) Random Glucose 203 H Calcium 8.7 Phosphorus 3.0 Magnesium 1.5 L Total Bilirubin 0.4 AST 31 ALT 30 Alkaline Phosphatase 81 Total Protein 5.6 L Albumin 3.1 L Globulin 2.5 Albumin/Globulin Ratio 1.3 Amylase Lipase Carcinoembryonic Ag CA 19-9 Antigen CA 125 Antigen Assessment & Plan - Assessment and Plan (Free Text) Assessment: 58F with PMHx of DM, HTN, GERD, Pancreatic tail Mass (07/2018) presented to the ED on 12/21 with upper abdominal pain x 3 days along with nausea and vomiting. Admitted 12/21 and being discharged today, 12/23 per primary team. Diabetic gastroparesis -we recommend reglan 5 mg TID as discharge medication -keep blood glucose controlled < 200 -f/u w/ Dr. Daniel, PMD -advance diet as tolerated -medical management per primary team Pancreatic tail mass -on CT 12/22: 1 cm pancreatic tail enhancing nodule. 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 -on CT Jul 2018: stable 1 cm pancreatic tail. Likely benign. -continue to monitor; we recommend f/u MRCP in 6 months (Jun 2019) DM -take diabetes medications per PMD instruction -Dr. Hernandez, abhay, following. Appreciate recs. Thank you for the consult. case discussed with Dr. Last Umana PGY1
--- NOTE | 2018-12-23 12:08 | CP.PCM.PN ---
Subjective - Date & Time of Evaluation Date of Evaluation: 12/23/18 Time of Evaluation: 11:45 - Subjective Subjective: Hospitalist Progress Note Patient was seen and examined at 11:45 AM 12/23/18 351 B Upon FULL ROS: NO abdominal pain Nausea has improved significantly and she was able to have broth this morning without any vomiting or abdominal pain She had a large bowel movement last night that she stated was soft to watery NO chest pain NO palpitations NO dysphagia NO odynophagia NO buring/pain with urination NO new changes in vision NO new changes in hearing NO parethesias NO headaches NO other complaints upon FULL ROS General: AAOX3, NAD HEENT: NCA, Pupils are round/equal/reactive to light, NO lymphadenopathy, NO thyromegaly, NO pharyngeal erythema/exudate Cardio: NS1 and NS2, NO M/R/G Resp: CTA B/L, NO R/R/W GI: BSx4, Soft, Central Obesity, NT, NO HSM, NO guarding/rebound tenderness Extremities: NO edema, Capillary refill is 2 seconds, Pulses are strong and equal Neuro: CN II through XII are grossly intact Assessments: 1). N/V secondary to history of Diabetic Gastroparesis (see Gastric Emptying Scan 07/31/17) secondary to recently not taking her medications consistently: moving her bowels and tolerating clear liquid diet 2). Leukocytosis: resolved, NO fevers 3). Acute Renal Failure: likely secondary to N/V. Resolved with IVF 4). Hyperkalemia: given 1 dose of Kayexalate upon admission and has resolved 5). Uncontrolled DM 2: history of recently not taking her medications. Stressed compliance of medications and that it can worsen the already present history of gastroparesis 6). Hx QTc prolongation 7). Hx Pancreatic Tail Nodule: repeat CT Abdomen/Pelvis with Pancreatic Protocol upon this admission indicated that the nodule is stable when compared to July 2017. Explained this to her and that she will have to follow this up with her PMD Dr. Daniel. 8). Hx HTN: controlled 9). Remote Hx Polysubstance Abuse: UDS upon admission is negative 10). Hx GERD 11). Hx Depression/Anxiety: confirmed this history with patient and that she is followed by Psychiatrist Dr. Rodas at [facility] and she will follow up with her. Patients presenting symptoms have improved. She is tolerating clear liquid diet She is now moving her bowels Confirmed with her that she has her home medications She understands that she is being given new dosage/prescription for Reglan and that she is to take it 30 minutes before breakfast, lunchg, and dinner She understands to follow up with PMD Dr. Daniel for managment/coordination of her health care and Pancreatic Nodule and with her Psychiatrist Dr. Rodas The following instructions were explained to the patient and copy will need to be provided to her upon discharge: 1). Please continue to take the following home medications (which you stated that you had enough of) as instructed by your physicians: Zoloft Hydroxyzine Toprol Glimepiride Metformin Trulicity Enalapril Protonix Toujeo 2). You were given new prescription for Reglan. Please take 5 mg by mouth 30 minutes before breakfast, lunch, and dinner Reglan 5 mg, 1 tablet by mouth 30 minutes before breakfast, lunch, and dinner, Dispense #[id number] 3). Please make sure to schedule follow up with your Primary Care Physician Dr. Daniel in the next 7 to 10 days for coordination of your health care as well as further management of your Pancreatic Nodule which CT Scan done during this admission indicated had not changed in size. Please bring these instructions with you to your appointment with Dr. Daniel for his review. 4). Please follow up with your Psychiatrists Dr. Rodas as instructed by her. 5). Please follow up with Child Care Assistant Dr. Ni for your history of Diabetic Gastroparesis as instructed by him. 6). Please continue to advance your diet from clear liquids as tolerated. 7). You may take over the counter (does not require a prescription) Diphenhydramine 12.5 mg 1 tablet by mouth every 6 hours ONLY NEEDED for nause. Please note that this medication can make you lightheaded/dizzy so please be careful. 8). Please stay well hydrated with water. 9). Please take care and be well. Subhash Russ D.O. Objective - Vital Signs/Intake and Output Vital Signs (last 24 hours): Temp Pulse Resp BP Pulse Ox 98.0 F 81 20 120/71 96 12/23/18 07:46 12/23/18 07:46 12/23/18 07:46 12/23/18 07:46 12/23/18 08:51 Intake and Output: 12/23/18 12/23/18 06:59 18:59 Intake Total 722 Balance 722 - Medications Medications: Current Medications Acetaminophen (Tylenol 325mg Tab) 650 mg PO Q6 PRN PRN Reason: Fever >100.4 F Diphenhydramine HCl (Benadryl) 12.5 mg PO Q6 PRN PRN Reason: Nausea/Vomiting Last Admin: 12/22/18 14:47 Dose: 12.5 mg Docusate Sodium (Colace) 100 mg PO TID [facility] Last Admin: 12/23/18 09:32 Dose: 100 mg Enalapril Maleate (Vasotec) 2.5 mg PO Q24H [facility] Last Admin: 12/22/18 19:53 Dose: 2.5 mg Heparin Sodium (Porcine) (Heparin) 5,000 units SC Q8 [facility] Last Admin: 12/23/18 06:01 Dose: 5,000 units Hydroxyzine HCl (Atarax) 25 mg PO HS [facility] Last Admin: 12/22/18 21:19 Dose: 25 mg Ciprofloxacin (Cipro 400mg/200ml Dsw) 400 mg in 200 mls @ 133 mls/hr IVPB Q12H [facility]; Protocol Last Admin: 12/23/18 00:52 Dose: 133 mls/hr Metronidazole (Flagyl) 500 mg in 100 mls @ 100 mls/hr IVPB Q8H [facility]; Protocol Last Admin: 12/23/18 04:16 Dose: 100 mls/hr Magnesium Sulfate/Dextrose (Magnesium Sulfate 1 Gm/100 Ml D5w) 1 gm in 100 mls @ 200 mls/hr IVPB ONCE ONE Stop: 12/23/18 12:25 Insulin Aspart (Novolog) 0 unit SC ACHS [facility] Last Admin: 12/23/18 11:22 Dose: Not Given Insulin Glargine (Lantus) 6 unit SC HS [facility] Last Admin: 12/22/18 21:28 Dose: 6 units Metoclopramide HCl (Reglan) 10 mg IVP TIDAC [facility] Last Admin: 12/23/18 08:10 Dose: Not Given Metoprolol Succinate (Toprol Xl) 50 mg PO DAILY [facility] Last Admin: 12/23/18 09:32 Dose: 50 mg Pantoprazole Sodium (Protonix Inj) 40 mg IVP DAILY [facility] Last Admin: 12/23/18 09:32 Dose: 40 mg Pneumococcal Polyvalent Vaccine (Pneumovax 23 Vaccine) 0.5 ml IM .ONCE ONE Stop: 12/23/18 14:01 Rosuvastatin Calcium (Crestor) 5 mg PO HS [facility] Last Admin: 12/22/18 21:19 Dose: 5 mg Sertraline HCl (Zoloft) 100 mg PO DAILY [facility] - Labs Labs: 12/23/18 07:35 12/23/18 07:35 APTT 28 SECONDS (21-34) 12/22/18 07:03
[2018-12-23] MEDS ORDERED: Magnesium Sulfate 1 gm in D5W 1 GM/100 ML BAG IVPB ONE ×2 (12:30→14:30)
[2018-12-23] MEDS ORDERED: Pneumococcal 23-Valent Vaccine IM ONE (13:00)
--- NOTE | 2018-12-23 14:36 | CARD ---
APPROVED REPORT Date of service: 12/21/2018 EKG Measurement Heart [id number] <Conclusion> Sinus tachycardia Poor R wave progression Abnormal ECG
--- NOTE | 2018-12-24 01:46 | PN ---
DATE: 12/23/2018 ENDO FOLLOWUP NOTE LOCATION: Room 351. SUBJECTIVE: This is a 58-year-old female with recent uncontrolled type 2 insulin requiring diabetes, presenting here with severe upper abdominal pain and underwent a GI evaluation with prior endoscopy workup and is now being followed closely also for metabolic management. Her glycemic levels are fluctuating and today's glucose levels as noted overnight have ranged from 217 to 261 and 246 mg/dL. LABORATORY DATA: Her chemistry showed a BUN of 21, sodium 133, potassium 3.4, chloride 99, CO2 of 28, glucose 203, and creatinine 0.9. Her thyroid study showed T4 of 9.5, TSH of 1.64. Her hemoglobin A1c was near optimal with a level of 7.3% as noted. Her cancer markers were also reviewed with CA19-9 of less than 1.4. A CEA level of 2.6 as noted. Liver transaminases were also reported as normal. Her lipid panel was also reported as normal. PLAN: So at this time, we will recommend the resumption of the same insulin regimen as given at home as she is schedule for possible discharge as noted. She will follow with the primary physician for ongoing medical management and was advised also to follow with a GI specialist as noted, especially with a history of VIDES in the tail of the pancreas, which was unchanged in terms of dimensions with repeat CAT scan of the pancreas undertaken with this admission. Cindy Hernandez MD
== END 2018-12-23 13:37 | disposition home or self-care (01) ==
LOC: C.ER 09:24 → C.9E 12:10 → C.3T 13:33
PROVIDERS: ADMIT Hospitalist; ATTEND Hospitalist
DX: E11.43 Type 2 diabetes mellitus with diabetic autonomic (poly)neuropathy (principal); K31.84 Gastroparesis; D72.829 Elevated white blood cell count, unspecified; E11.65 Type 2 diabetes mellitus with hyperglycemia; N17.9 Acute kidney failure, unspecified; I10 Essential (primary) hypertension; K86.9 Disease of pancreas, unspecified; G89.29 Other chronic pain; K21.9 Gastro-esophageal reflux disease without esophagitis; K59.00 Constipation, unspecified; M16.12 Unilateral primary osteoarthritis, left hip; Z79.4 Long term (current) use of insulin; Z91.14 Patient's other noncompliance with medication regimen; Z66 Do not resuscitate; Z91.19 Patient's noncompliance with other medical treatment and regimen; Z80.0 Family history of malignant neoplasm of digestive organs; Z80.3 Family history of malignant neoplasm of breast; Z83.3 Family history of diabetes mellitus; F17.200 Nicotine dependence, unspecified, uncomplicated
CPT/HCPCS: 36415; 74022; 74177; 80053; 80061; 80324; 80345; 80346; 80349; 80353; 80358; 80361; 81001; 82150; 82378; 82948; 83036; 83690; 83735; 83992; 84100; 84436; 84443; 85025; 85730; 86301; 86304; 87040; 87086; 90471; 90732; 93005; 96365; 96366; 96368; 96372; 96375; 96376; 97162; 99285; C9113; G0378; G8978; G8979; J0744; J1644; J1885; J2765; J7030; J7040; Q9966; Q9967